=== PATIENT | male | born 1960 | race Caucasian/White ===

== ENCOUNTER 2017-03-07 16:01 | Emergency (ER) | payer MEDICARE, OTHER ==
[2017-03-07 16:08] VITALS: BP 134/73; PULSE 82; RESP 20; TEMP 97.1
[2017-03-07] MEDS ORDERED: DIPH,PERTUS(ACELL)TETVAC-LF 0.5 ML VIAL IM ONE (16:17)
--- NOTE | 2017-03-07 16:27 | ED ---
Wound/Laceration HPI - General Chief Complaint: Wound/Laceration Stated Complaint: Facial Laceration Time Seen by Provider: 03/07/17 16:09 Source: patient, family, RN notes reviewed Mode of arrival: ambulatory Limitations: no limitations - Related Data Home Medications Medication Instructions Recorded Confirmed Albuterol Inhaler [Ventolin Hfa 2 puff INHALATION DIRECTED PRN 05/27/1603/07 Inhaler] Aspirin [Adult Low Dose Aspirin EC] 81 mg PO DAILY 05/27/16 03/07/17 Atenolol [Tenormin] 25 mg PO DAILY 05/27/16 03/07/17 Simvastatin [Zocor] 40 mg PO HS 05/27/16 03/07/17 Ibuprofen [Motrin] 600 mg PO Q6HR PRN 05/28/16 03/07/17 Previous Rx's Medication Instructions Recorded Clopidogrel [Plavix] 75 mg PO DAILY #90 tab 06/19/16 Allergies Allergy/AdvReac Type Severity Reaction Status Date / Time Iodinated Contrast- Oral and Allergy Rash/Hives Verified 03/07/17 16:09 IV Dye [Iodinated Contrast Media - IV Dye] Review of Systems ROS Statement: Those systems with pertinent positive or pertinent negative responses have been documented in the HPI. ROS Other: All systems not noted in ROS Statement are negative. Past Medical History Past Medical History: COPD, CVA/TIA, GERD/Reflux, Hyperlipidemia, Hypertension, Myocardial Infarction (MS), Osteoarthritis (OA), Sleep Apnea/CPAP/BIPAP, Vascular Disorder Additional Past Medical History / Comment(s): PAD, DDD, LEFT SIDE OF MOUTH AND EYE MUSCLE DROOPING R/T CVA, BLOCKAGE BILAT LEGS, degenerative disc disease, RLS , BACK PAIN. Last Myocardial Infarction Date:: 2007 History of Any Multi-Drug Resistant Organisms: None Reported Past Surgical History: Heart Catheterization, Joint Replacement, Orthopedic Surgery Additional Past Surgical History / Comment(s): SPINAL CORD STIMULATOR, RT SHOULDER RECONSTRUCTION, RT HIP AND LEFT KNEE REPLACEMENT, AORTOGRAM WITH RUN OFF left leg 05/28/16, 06/18/16 STENT TO LT ILIAC ARTERY,07-14-16 2 STENTS TO RT ILIAC. Past Anesthesia/Blood Transfusion Reactions: Previous Problems w/ Anesthesia Additional Past Anesthesia/Blood Transfusion Reaction / Comment(s): STATES SLOW TO AWAKEN Past Psychological History: No Psychological Hx Reported Smoking Status: Current every day smoker Past Alcohol Use History: None Reported Past Drug Use History: None Reported - Past Family History Mother Family Medical History: Cancer Father Family Medical History: Hypertension General Exam - General Exam Comments Initial Comments: This is a well-developed, well-nourished 56-year-old male in no distress Limitations: no limitations General appearance: alert, in no apparent distress Head exam: Present: other (Patient is a superficial laceration to the bridge of his nose. This is a 1.5 cm in length. This is a flap-type laceration with questionable blood 4 to the flap. Patient has a tiny abrasion inferior to the laceration. There is no significant tenderness to palpation. No evidence of septal hematoma. Head is normocephalic/atraumatic otherwise) Eye exam: Present: normal appearance, PERRL, EOMI. Absent: scleral icterus, conjunctival injection, periorbital swelling ENT exam: Present: normal exam, normal oropharynx, mucous membranes moist, normal external ear exam Neck exam: Present: normal inspection, full ROM Respiratory exam: Absent: respiratory distress Cardiovascular Exam: Present: regular rate, normal rhythm, normal heart sounds. Absent: systolic murmur, diastolic murmur, rubs, gallop, clicks Extremities exam: Present: normal inspection, full ROM Neurological exam: Present: alert, oriented X3, CN II-XII intact, normal gait, other (No neurologic deficits, cerebellar testing is normal) Psychiatric exam: Present: normal affect, normal mood Skin exam: Present: warm, dry, normal color. Absent: intact, rash, cyanosis, diaphoretic Course Vital Signs 03/07/17 16:06 Temperature 97.1 F L Pulse Rate 82 Respiratory 20 Rate Blood Pressure 134/73 O2 Sat by Pulse 96 Oximetry Procedures - Laceration Laceration #1 Consent Obtained: verbal consent Indication: laceration Site: face Size (cm): 2 Description: flap Depth: simple, single layer Anesthetic Used: lidocaine 1% Anesthesia Technique: local infiltration Pre-repair: wound explored, irrigated extensively Type of Sutures: nylon Size of Sutures: 6-0 Number of Sutures: 3 Technique: simple, interrupted Patient Tolerated Procedure: well, no complications Medical Decision Making - Medical Decision Making Return to the ER at once if the symptoms worsen or problems or difficulties arise. Counseled signs and symptoms of infection wound care. Return and follow-up parameters discussed. No loss of consciousness, no vomiting and says, no neurological impairment Tetanus given - Differential Diagnosis Superficial facial laceration, no tenderness. Disposition Clinical Impression: Superficial laceration of face Disposition: HOME SELF-CARE Condition: Good Instructions: Facial Laceration (ED) Additional Instructions: Suture removal in 4 or 5 days. Keep the wound covered with topical antibiotic ointment such as Neosporin or triple about appointment. Return to the ER at once if the symptoms worsen or problems or difficulties arise. The patient was found to be hypertensive in the ER today. Findings were reviewed with the patient. Patient was advised to follow-up with the primary care physician for further evaluation of blood pressure. Referrals: David Benavides MD [Primary Care Provider] - 1-2 days Time of Disposition: 16:29
== END 2017-03-07 16:47 | disposition home or self-care (01) ==
LOC: EC 16:01
DX: S01.21XA Laceration without foreign body of nose, initial encounter (principal); I10 Essential (primary) hypertension; E78.5 Hyperlipidemia, unspecified; M19.90 Unspecified osteoarthritis, unspecified site; F17.200 Nicotine dependence, unspecified, uncomplicated; Z23 Encounter for immunization; Z91.041 Radiographic dye allergy status; Z79.82 Long term (current) use of aspirin; Z79.899 Other long term (current) drug therapy; X58.XXXA Exposure to other specified factors, initial encounter
CPT/HCPCS: 12011; 90471; 90715; 99282

== ENCOUNTER 2017-08-25 01:11 | Inpatient (IN) | payer MEDICARE, OTHER ==
[2017-08-25] MEDS ORDERED: ASPIRIN 81 MG PO STA (01:19)
[2017-08-25] MEDS ORDERED: NITROGLYCERIN SL TABS 0.4 MG TAB SUBLINGUAL PRN ×2 (01:19→03:18)
[2017-08-25] MEDS ORDERED: SUCCINYLCHOLINE CHLORIDE 100 MG/5 ML SYR IV STA (01:32)
[2017-08-25] MEDS ORDERED: MIDAZOLAM (PF) 1 MG/ML 5 ML VIAL IV STA (01:32)
[2017-08-25] MEDS ORDERED: LORazepam 2 MG/ML INJ IV STA (01:32)
[2017-08-25] MEDS ORDERED: ASPIRIN 300 MG SUPP RECTAL STA (01:33)
[2017-08-25 01:35] LABS: RDW 13.1 % (11.5-15.5)
[2017-08-25 01:36] LABS: Glucose,Whole Blood 187 mg/dL (75-99)
[2017-08-25] MEDS ORDERED: FAMOTIDINE 20 MG/2 ML VIAL IV STA (01:40)
[2017-08-25] MEDS ORDERED: diphenhydrAMINE 50 MG/ML 1 ML VIAL IVP STA (01:40)
[2017-08-25] MEDS ORDERED: methylPREDNISolone SOD SUCCI 125 MG/2 ML VIAL IV STA (01:40)
[2017-08-25 01:46] LABS: INR 1.1 (<1.2); Partial Thromboplastin Time 23.1 sec (22.0-30.0); Prothrombin Time 10.4 sec (9.0-12.0)
[2017-08-25 01:48] LABS: ALT 62 U/L (21-72); AST 56 U/L (17-59); Albumin 3.9 g/dL (3.5-5.0); Alkaline Phosphatase 67 U/L (38-126); Anion Gap 18 mmol/L; Blood Urea Nitrogen 15 mg/dL (9-20); Calcium 8.4 mg/dL (8.4-10.2); Carbon Dioxide 17 mmol/L (22-30); Chloride 107 mmol/L (98-107); Glucose 163 mg/dL (74-99); Potassium 3.7 mmol/L (3.5-5.1); Sodium 142 mmol/L (137-145); Total Bilirubin 0.4 mg/dL (0.2-1.3); Total Protein 6.1 g/dL (6.3-8.2)
[2017-08-25] MEDS ORDERED: MIDAZOLAM 2 MG/2 ML VIAL ONE ×2 (01:53→02:30)
[2017-08-25] MEDS ORDERED: fentaNYL (PF) 50 MCG/ML 2 ML AMP ONE ×2 (01:54→02:30)
[2017-08-25] MEDS ORDERED: LIDOCAINE 2% INJ 20 MG/ML (20 ML MDV) ONE (01:54)
[2017-08-25 01:57] LABS: HCT 51.6 % (39.0-53.0); HGB 17.4 gm/dL (13.0-17.5); MCH 31.9 pg (25.0-35.0); MCHC 33.7 g/dL (31.0-37.0); MCV 94.6 fL (80.0-100.0); Mean Platelet Volume 6.8; Platelet Count 172 k/uL (150-450); RBC 5.46 m/uL (4.30-5.90); WBC 14.4 k/uL (3.8-10.6)
--- NOTE | 2017-08-25 02:05 | CT ---
EXAMINATION TYPE: CT brain winston mukherjee con DATE OF EXAM: 08/25/2017 COMPARISON: NONE HISTORY: FOUND UNRESPONSIVE LOC CT DLP: 1820.50 mGycm Automated exposure control for dose reduction was used. TECHNIQUE: CT scan of the head and cervical spine are performed without contrast. FINDINGS: Ventricles of normal size. There is no mass effect nor midline shift. There is no sign of intracranial hemorrhage. There is mucosal thickening in the right frontal sinus. There is mucosal th ickening in the ethmoid sphenoid and maxillary sinuses. The calvarium is intact. There is mild deform ity of the nasal bone. Endotracheal tube is noted. The cervical vertebra have normal alignment. There is mild narrowing at C5-6 disc space with mild ant erior spurring. Posterior elements are intact. Skull base is intact. There is no evidence of a cervic al spine fracture. IMPRESSION: Pansinusitis. Possible nasal bone fracture. No acute intracranial abnormality. Mild spondylosis at C5-6. No fracture.
--- NOTE | 2017-08-25 02:06 | XR ---
EXAMINATION TYPE: XR chest 1V portable DATE OF EXAM: 08/25/2017 COMPARISON: 10/04/2013 HISTORY: Unresponsive TECHNIQUE: Single frontal view of the chest is obtained. FINDINGS: Endotracheal tube is noted. There is neurostimulator in the mid thoracic spine. There are chest leads. Lungs are clear of consolidation. There is no gross heart failure. There is mild increas ed lung markings compared to last exam. IMPRESSION: No gross heart failure. There is new mild pulmonary congestion compared to old exam.
--- NOTE | 2017-08-25 02:11 | ED ---
CPR HPI - General Chief Complaint: Cardiac Arrest/CPR Stated Complaint: Unresponsive Time Seen by Provider: 08/25/17 01:19 Source: family, EMS Mode of arrival: EMS Limitations: physical limitation - History of Present Illness Initial Comments: this patient is a 57-year-old man brought by EMS to be evaluated after being found unresponsive. The patient had reportedly gone to bed around 10. The patient's then heard a loud noise, that she initially thought was a door slamming. She went to check and found the patient lying face down on the floor half under the bed. She phoned EMS immediately. EMS was reportedly on scene 5 minutes later and found the patient appearing agonal. They placed him on the monitor and found what appeared to be V. fib and delivered a shock. They stated that the patient appeared to go into asystole and after CPR there was ROSC. the patient also began having spontaneous inspirations. EMS continued delivering 100% oxygen by BV, and transported the patient here. On arrival course patient not able to give any history. Patient's states that he has had history of VA, stroke with a little bit of left-sided arm residual weakness , carotid stenosis, and peripheral vascular disease. she also states that he had not been complaining of anything before going to bed. MD Complaint: found unresponsive, collapsed during rest -: minute(s) Place: home AED Applied by Bystander/[employer]: Yes Shock Advised: Yes Number of Shocks Delivered: 1 Initial Findings in the Field: unresponsive, agonal, VTACH/VFIB ROSC in the Field: Yes Associated Injuries: Yes (epistaxis) Treatments Prior to Arrival: BMV, chest compressions, defibrillated shocks # (1) - Related Data Home Medications Medication Instructions Recorded Confirmed Albuterol Inhaler [Ventolin Hfa 2 puff INHALATION DIRECTED PRN 05/27/1608/25 Inhaler] Atenolol [Tenormin] 25 mg PO DAILY 05/27/16 08/25/17 Simvastatin [Zocor] 40 mg PO HS 05/27/16 08/25/17 Isosorbide Mononitrate ER [Imdur] 60 mg PO DAILY 08/25/17 08/25/17 Nitroglycerin Sl Tabs [Nitrostat] 0.4 mg SUBLINGUAL Q5M PRN 08/25/17 08/25/17 Hydrochlorothiazide 12.5 mg PO DAILY 08/26/17 08/26/17 Nortriptyline [Pamelor] 25 mg PO DAILY 08/26/17 08/26/17 Previous Rx's Medication Instructions Recorded Clopidogrel [Plavix] 75 mg PO DAILY #90 tab 06/19/16 Allergies Allergy/AdvReac Type Severity Reaction Status Date / Time Iodinated Contrast- Oral and Allergy Rash/Hives Verified 08/25/17 12:21 IV Dye [Iodinated Contrast Media - IV Dye] Review of Systems ROS Statement: Those systems with pertinent positive or pertinent negative responses have been documented in the HPI. ROS Other: All systems not noted in ROS Statement are negative. Limitations: ROS unobtainable due to patients medical condition (patient unresponsive) Past Medical History Past Medical History: COPD, CVA/TIA, GERD/Reflux, Hyperlipidemia, Hypertension, Myocardial Infarction (VA), Osteoarthritis (OA), Sleep Apnea/CPAP/BIPAP, Vascular Disorder Additional Past Medical History / Comment(s): PAD, DDD, LEFT SIDE OF MOUTH AND EYE MUSCLE DROOPING R/T CVA, BLOCKAGE BILAT LEGS, degenerative disc disease, RLS , BACK PAIN. Last Myocardial Infarction Date:: 2007 History of Any Multi-Drug Resistant Organisms: None Reported Past Surgical History: Heart Catheterization, Joint Replacement, Orthopedic Surgery Additional Past Surgical History / Comment(s): SPINAL CORD STIMULATOR, RT SHOULDER RECONSTRUCTION, RT HIP AND LEFT KNEE REPLACEMENT, AORTOGRAM WITH RUN OFF left leg 05/28/16, 06/18/16 STENT TO LT ILIAC ARTERY,07-14-16 2 STENTS TO RT ILIAC. Past Anesthesia/Blood Transfusion Reactions: Previous Problems w/ Anesthesia Additional Past Anesthesia/Blood Transfusion Reaction / Comment(s): STATES SLOW TO AWAKEN Past Psychological History: No Psychological Hx Reported Smoking Status: Current every day smoker Past Alcohol Use History: None Reported Past Drug Use History: None Reported - Past Family History Mother Family Medical History: Cancer Father Family Medical History: Hypertension General Exam Limitations: physical limitation General appearance: obtunded Head exam: Present: normocephalic Eye exam: Present: PERRL. Absent: scleral icterus, conjunctival injection ENT exam: Present: TM's normal bilaterally, normal external ear exam, other ( there is dried blood in the naris, and small amount of dark blood and posterior pharynx) Neck exam: Present: normal inspection. Absent: tenderness Respiratory exam: Present: rhonchi. Absent: respiratory distress, wheezes, rales, stridor Cardiovascular Exam: Present: normal rhythm, tachycardia, normal heart sounds. Absent: systolic murmur, diastolic murmur, rubs, gallop GI/Abdominal exam: Present: soft. Absent: distended, tenderness, guarding, mass , pulsatile mass Extremities exam: Present: normal inspection, normal capillary refill. Absent: pedal edema, calf tenderness Back exam: Present: normal inspection. Absent: tenderness Neurological exam: Present: altered, CN II-XII intact, other (GCS is 8 (M=5, V=2 , E=1). patient not able to cooperate with neurologic exam.) Expanded Speech: Present: total aphasia Eye Response: (1) no response Motor Response: (5) localizes to pain Verbal Response: incomprehensible sounds Skin exam: Present: warm, dry, intact, normal color. Absent: rash Course Vital Signs 08/25/17 08/25/17 01:20 01:41 Temperature 96.6 F L Pulse Rate 111 H 122 H Respiratory 20 20 Rate Blood Pressure 140/83 141/87 O2 Sat by Pulse 98 94 L Oximetry Procedures - Intubation Time Out Performed: Yes Sedative: Versed Mg Given: 5 Paralytic: Succinylcholine Mg Given: 100 Laryngoscope: Jennifer Size: 3 ET Tube Size: 8 ET Tube Uncuffed: No Tube Placement Confirmation: visualized tube passing through cords, equal breath sounds bilaterally, no breath sounds over epigastrium, confirmation by capnometry Patient Tolerated Procedure: no complications Intubation Complications: none Additional Comments: intubated for airway protection given that GCS is 8. Medical Decision Making - Medical Decision Making patient's 57-year-old man wrought after being found unresponsive. His initial ECG appears to show ST elevation VA with inferior ST elevations, reciprocal changes in the lateral and anterior leads. Given that the patient has neurologic responses, the STEMI alert is activated. I discussed the case with Dr. Novak, who is coming to see the patient. Patient also for computed tomography scan of the brain and C-spine and cervical collar is placed. Patient is intubated for airway protection using in-line spinal immobilization. - Lab Data Result diagrams: 08/30/17 05:54 08/30/17 05:54 Lab Results 0108/25/17 08/25/17 Range/Units 01:18 01:18 01:18 WBC 14.4 H (3.8-10.6) k/uL RBC 5.46 (4.30-5.90) m/uL Hgb 17.4 (13.0-17.5) gm/dL Hct 51.6 (39.0-53.0) % MCV 94.6 (80.0-100.0) fL MCH 31.9 (25.0-35.0) pg MCHC 33.7 (31.0-37.0) g/dL RDW 13.1 (11.5-15.5) % Plt Count 172 (150-450) k/uL Neutrophils % (Manual) 51 % Lymphocytes % (Manual) 36 % Monocytes % (Manual) 11 % Eosinophils % (Manual) 2 % Neutrophils # (Manual) 7.34 (1.3-7.7) k/uL Lymphocytes # (Manual) 5.18 H (1.0-4.8) k/uL Monocytes # (Manual) 1.58 H (0-1.0) k/uL Eosinophils # (Manual) 0.29 (0-0.7) k/uL Nucleated RBCs 0 (0-0) /100 WBC Manual Slide Review Performed PT (9.0-12.0) sec INR (<1.2) APTT (22.0-30.0) sec Sodium 142 (137-145) mmol/L Potassium 3.7 (3.5-5.1) mmol/L Chloride 107 (98-107) mmol/L Carbon Dioxide 17 L (22-30) mmol/L Anion Gap 18 mmol/L BUN 15 (9-20) mg/dL Creatinine 1.20 (0.66-1.25) mg/dL Est GFR (MDRD) Af Amer >60 (>60 ml/min/1.73 sqM) Est GFR (MDRD) Non-Af >60 (>60 ml/min/1.73 sqM) Glucose 163 H (74-99) mg/dL POC Glucose (mg/dL) (75-99) mg/dL POC Glu Procurement Internship ID Calcium 8.4 (8.4-10.2) mg/dL Total Bilirubin 0.4 (0.2-1.3) mg/dL AST 56 (17-59) U/L ALT 62 (21-72) U/L Alkaline Phosphatase 67 (38-126) U/L CK-MB (CK-2) 2.5 H* (0.0-2.4) ng/mL Troponin I 0.034 (0.000-0.034) ng/mL Total Protein 6.1 L (6.3-8.2) g/dL Albumin 3.9 (3.5-5.0) g/dL 08/25/17 08/25/17 Range/Units 01:18 01:24 WBC (3.8-10.6) k/uL RBC (4.30-5.90) m/uL Hgb (13.0-17.5) gm/dL Hct (39.0-53.0) % MCV (80.0-100.0) fL MCH (25.0-35.0) pg MCHC (31.0-37.0) g/dL RDW (11.5-15.5) % Plt Count (150-450) k/uL Neutrophils % (Manual) % Lymphocytes % (Manual) % Monocytes % (Manual) % Eosinophils % (Manual) % Neutrophils # (Manual) (1.3-7.7) k/uL Lymphocytes # (Manual) (1.0-4.8) k/uL Monocytes # (Manual) (0-1.0) k/uL Eosinophils # (Manual) (0-0.7) k/uL Nucleated RBCs (0-0) /100 WBC Manual Slide Review PT 10.4 (9.0-12.0) sec INR 1.1 (<1.2) APTT 23.1 (22.0-30.0) sec Sodium (137-145) mmol/L Potassium (3.5-5.1) mmol/L Chloride (98-107) mmol/L Carbon Dioxide (22-30) mmol/L Anion Gap mmol/L BUN (9-20) mg/dL Creatinine (0.66-1.25) mg/dL Est GFR (MDRD) Af Amer (>60 ml/min/1.73 sqM) Est GFR (MDRD) Non-Af (>60 ml/min/1.73 sqM) Glucose (74-99) mg/dL POC Glucose (mg/dL) 187 H (75-99) mg/dL POC Glu Procurement Internship ID Tiff Nunez Calcium (8.4-10.2) mg/dL Total Bilirubin (0.2-1.3) mg/dL AST (17-59) U/L ALT (21-72) U/L Alkaline Phosphatase (38-126) U/L CK-MB (CK-2) (0.0-2.4) ng/mL Troponin I (0.000-0.034) ng/mL Total Protein (6.3-8.2) g/dL Albumin (3.5-5.0) g/dL Critical Care Time Critical Care Time: Yes (40 minutes) Disposition Clinical Impression: Acute myocardial infarction, Cardiopulmonary arrest with successful resuscitation Disposition: ADMITTED IP TO THIS [facility] Condition: Critical
[2017-08-25 02:15] LABS: Eosinophils # (M) 0.29 k/uL (0-0.7); Lymphocytes # (M) 5.18 k/uL (1.0-4.8); Monocytes # (M) 1.58 k/uL (0-1.0); Neutrophils # (M) 7.34 k/uL (1.3-7.7); Neutrophils % (M) 51 %; Nucleated Red Blood Cells 0 /100 WBC (0-0); Total Cells Counted 100; Troponin I 0.034 ng/mL (0.000-0.034)
[2017-08-25] MEDS ORDERED: MIDAZOLAM 2 MG/2 ML VIAL IV ONE ×2 (02:17)
[2017-08-25] MEDS ORDERED: LIDOCAINE 2% INJ 20 MG/ML SQ ONE ×3 (02:18→02:25)
[2017-08-25] MEDS ORDERED: IV FLUID CONTINUATION 1,000 ML IV ONE (02:21)
[2017-08-25] MEDS ORDERED: VERAPAMIL 2.5 MG/ML 2 ML AMP ONE (02:21)
[2017-08-25] MEDS ORDERED: SUCCINYLCHOLINE CHLORIDE VIAL 200 MG/10 ML VIAL IV STA (02:26)
[2017-08-25 02:27] LABS: Creatine Kinase MB 2.5 ng/mL (0.0-2.4)
[2017-08-25] MEDS ORDERED: ROCURONIUM BROMIDE 10 MG/ML 10 ML VIAL IV ONE (02:30)
[2017-08-25] MEDS ORDERED: BIVALIRUDIN 250 MG in SODIUM CHLORIDE 0.9% 50 ML IV ONE ×4 (02:34)
[2017-08-25] MEDS ORDERED: BIVALIRUDIN BOLUS 250 MG/50 ML IV ONE ×2 (02:34)
[2017-08-25] MEDS ORDERED: CLOPIDOGREL 75 MG TAB ONE ×2 (02:36→02:37)
[2017-08-25] MEDS ORDERED: CLOPIDOGREL 75 MG TAB PO ONE ×2 (02:46)
[2017-08-25] MEDS ORDERED: IOHEXOL 350 MG/ML 125ML BOTTLE INJ ONE ×2 (03:18)
[2017-08-25] MEDS ORDERED: ATROPINE SULFATE 0.1 MG/ML 10ML SYRINGE IV PRN (03:18)
[2017-08-25] MEDS ORDERED: ZOLPIDEM 5 MG TAB PO PRN (03:18)
[2017-08-25] MEDS ORDERED: RX INFO: IV CONTRAST WAS GIVEN 1 EACH MISC MISCELLANE PRN (03:18)
[2017-08-25] MEDS ORDERED: MAG HYDROX/AL HYDROX/SIMETH 30 ML CUP PO PRN (03:18)
[2017-08-25] MEDS ORDERED: PROPOFOL 100 ML IV ONE (03:42)
[2017-08-25 03:46] LABS: Glucose,Whole Blood 106 mg/dL (75-99)
[2017-08-25 04:10] LABS: ABG PCO2 45 mmHg (35-45); ABG PH 7.34 (7.35-7.45)
[2017-08-25 04:11] LABS: ABG HCO3 24 mmol/L (21-25); ABG PO2 246 mmHg (83-108); ABG TCO2 57 mmol/L (19-24)
[2017-08-25 04:12] LABS: ABG Base Excess -1.5 mmol/L
[2017-08-25] MEDS: SODIUM CHLORIDE 0.9% 1,000 ML IV SCH ×2 (04:24→18:04)
--- NOTE | 2017-08-25 08:16 | XR ---
EXAMINATION TYPE: XR chest 1V portable DATE OF EXAM: 08/25/2017 COMPARISON: NONE HISTORY: SOB, Follow Up FINDINGS: Endotracheal tube is unchanged in position. NG tube is seen coursing into the stomach. Perihilar and upper lobe infiltrates have increased. Underlying pulmonary venous congestion. Stable appearance of the cardio-mediastinal structures at this time. Pleural effusion unchanged. IMPRESSION: 1. Perihilar and upper lobe infiltrates have increased. Underlying pulmonary venous congestion. Clinical correlation and follow up until resolution is recommended.
[2017-08-25] MEDS: PROPOFOL 1,000 MG in EMPTY BAG 1 BAG IV SCH ×2 (08:35→20:29)
--- NOTE | 2017-08-25 09:44 | P.CNPUL ---
History of Present Illness Consult date: 08/25/17 Chief complaint: STEMI History of present illness: A 57-year-old male patient who came in to the hospital with an acute cardiac arrest. The patient was found to be unresponsive by his . Apparently the patient had gone to bed around 10 PM. The heard and no complications and upon check in on her , she found him laying face down on the floor. EMS was called to the scene and the patient was initially found to be in ventricular fibrillation and he was immediately shocked and defibrillated and the patient had return of spontaneous circulation. The patient also began having spontaneous breathing. EMS put him on 100% nonrebreather and the patient got moved to the emergency department. The exact downtime is not clear although this is estimated to be around 5 minutes at least. The patient came in to the emergency department and the patient was found to have acute ST segment elevation myocardial infarction involving the inferior leads with reciprocal changes laterally. Acute myocardial infarction was suspected. The patient was immediately taken to the Planner Chief and the patient underwent a cardiac catheterization he was found to have 100% occlusion of the RCA and the patient underwent angioplasty and stenting of the RCA. Following that, the patient was moved to the intensive care unit intubated on a mechanical ventilator. This morning, the patient is on 10 mics of the Diprivan and is calm and comfortable. He is hemodynamically stable on no pressors. He is producing adequate amount of urine output. Overnight he was placed on IV fluids with normal saline at the rate of 75 mL an hour. His chest x-ray from today shows perihilar and upper lobe infiltrates that have increased compared to yesterday and I suspect this is related to pulmonary vessel congestion. I also suspect that the patient could've aspirated knowing that the pulmonary infiltration on the right especially in the right upper lung area is worse compared to the left. The patient also having some respiratory secretions being suctioned from the orotracheal tube that are rather thick and purulent. ET tube is in a good location. NG tube is also in the stomach. Echocardiogram was done this morning and the results are still pending for now. Meanwhile, the patient's troponins were minimally elevated at 0.03 initially and subsequently up to 0.5. The patient's creatinine today is at 1.2. His blood gases from this morning showed a pH of 7.35 with a pCO2 of 45 and pO2 of 246 and this was done on assist control mode at the rate of 14, tidal volume 550, FiO2 of 100% and a PEEP of 5. Based on his blood gases, the patient's FiO2 was dropped down to 50% . The patient is known to have coronary artery disease and the patient has been involved in a myocardial infarction back in 2007. The patient also has had previous CVA and left-sided weakness and previous history of carotid artery stenosis. He is also known to have peripheral vascular disease with iliac stents. Review of Systems ROS unobtainable: due to endotracheal tube Past Medical History Past Medical History: COPD, CVA/TIA, GERD/Reflux, Hyperlipidemia, Hypertension, Myocardial Infarction ([place]), Osteoarthritis (OA), Sleep Apnea/CPAP/BIPAP, Vascular Disorder Additional Past Medical History / Comment(s): Coronary artery disease, previous myocardial infarctions 2007 , peripheral vascular disease, CVA with some residual left-sided weakness, COPD, acid reflux, hyperlipidemia, hypertension, obstructive sleep apnea, osteoarthritis, chronic back pain, restless leg syndrome Last Myocardial Infarction Date:: 2007 History of Any Multi-Drug Resistant Organisms: None Reported Past Surgical History: Heart Catheterization, Joint Replacement, Orthopedic Surgery Additional Past Surgical History / Comment(s): SPINAL CORD STIMULATOR, RT SHOULDER RECONSTRUCTION, RT HIP AND LEFT KNEE REPLACEMENT, AORTOGRAM WITH RUN OFF left leg 05/28/16, 06/18/16 STENT TO LT ILIAC ARTERY,07-14-16 2 STENTS TO RT ILIAC. Past Anesthesia/Blood Transfusion Reactions: Previous Problems w/ Anesthesia Additional Past Anesthesia/Blood Transfusion Reaction / Comment(s): STATES SLOW TO AWAKEN Past Psychological History: No Psychological Hx Reported Smoking Status: Current every day smoker Past Alcohol Use History: None Reported Additional Past Alcohol Use History / Comment(s): SMOKES 1 PPD, started smoking 1971 Past Drug Use History: None Reported Additional Drug Use History / Comment(s): USES MEDICAL MARIJUANA DAILY - Past Family History Mother Family Medical History: Cancer Father Family Medical History: Hypertension Medications and Allergies Home Medications Medication Instructions Recorded Confirmed Type Albuterol Inhaler [Ventolin Hfa 2 puff INHALATION DIRECTED PRN 05/27/1603/07 History Inhaler] Aspirin [Adult Low Dose Aspirin EC] 81 mg PO DAILY 05/27/16 03/07/17 History Atenolol [Tenormin] 25 mg PO DAILY 05/27/16 03/07/17 History Simvastatin [Zocor] 40 mg PO HS 05/27/16 03/07/17 History Ibuprofen [Motrin] 600 mg PO Q6HR PRN 05/28/16 03/07/17 History Clopidogrel [Plavix] 75 mg PO DAILY #90 tab 06/19/16 03/07/17 Rx Allergies Allergy/AdvReac Type Severity Reaction Status Date / Time Iodinated Contrast- Oral and Allergy Rash/Hives Verified 03/07/17 16:09 IV Dye [Iodinated Contrast Media - IV Dye] Physical Exam Vitals: Vital Signs Temp Pulse Resp BP Pulse Ox 08/25/17 08:50 85 22 145/75 97 08/25/17 08:48 86 21 145/75 98 08/25/17 08:46 87 21 145/75 97 08/25/17 08:44 95 22 145/75 98 08/25/17 08:42 86 21 145/75 97 08/25/17 08:40 93 21 145/75 99 08/25/17 08:38 90 23 145/75 100 08/25/17 08:36 100 13 136/93 99 08/25/17 08:34 97 20 117/71 99 08/25/17 08:32 85 23 133/78 98 08/25/17 08:30 98.9 F 90 23 138/73 97 08/25/17 08:28 89 22 136/82 97 08/25/17 08:26 87 16 130/85 97 08/25/17 08:24 86 21 126/83 97 08/25/17 08:22 89 21 131/77 97 08/25/17 08:20 90 22 136/70 97 08/25/17 08:18 83 22 127/84 97 08/25/17 08:16 87 17 132/77 97 08/25/17 08:14 89 21 131/84 97 08/25/17 08:12 88 52 H 131/74 97 08/25/17 08:10 90 26 H 129/84 97 08/25/17 08:08 93 20 141/85 97 08/25/17 08:06 92 26 H 143/77 97 08/25/17 08:04 92 29 H 97 08/25/17 08:02 87 19 97 08/25/17 08:00 85 21 97 08/25/17 07:58 89 12 97 08/25/17 07:56 89 18 97 08/25/17 07:54 89 22 97 08/25/17 07:52 88 21 97 08/25/17 07:50 89 21 97 08/25/17 07:48 88 21 97 08/25/17 07:46 93 22 97 08/25/17 07:44 93 20 97 08/25/17 07:42 88 22 97 08/25/17 07:40 88 22 97 08/25/17 07:38 87 21 97 08/25/17 07:36 88 17 97 08/25/17 07:34 91 23 97 08/25/17 07:32 87 18 97 08/25/17 07:30 87 22 97 08/25/17 07:28 87 22 97 08/25/17 07:26 89 11 L 97 08/25/17 07:24 88 21 97 08/25/17 07:22 90 22 97 08/25/17 07:20 87 17 97 08/25/17 07:18 87 17 97 08/25/17 07:16 88 13 97 08/25/17 07:14 90 21 97 08/25/17 07:12 92 16 97 08/25/17 07:00 86 14 97 08/25/17 06:45 88 14 98 08/25/17 06:30 85 14 98 08/25/17 06:15 93 27 H 99 08/25/17 06:00 89 24 99 08/25/17 05:45 90 17 99 08/25/17 05:30 98 26 H 99 08/25/17 05:15 96 19 99 08/25/17 05:00 100 25 H 100 08/25/17 04:45 100 17 99 08/25/17 04:30 103 H 27 H 124/77 100 08/25/17 04:15 104 H 18 135/72 100 08/25/17 04:00 97.2 F L 108 H 14 141/79 100 08/25/17 03:45 117 H 28 H 143/85 100 08/25/17 01:41 122 H 20 141/87 94 L 08/25/17 01:20 96.6 F L 111 H 20 140/83 98 Intake and Output 08/24/17 08/25/17 08/25/17 22:59 06:59 14:59 Intake Total 1062.81 150 Output Total 1874 175 Balance -812.19 -25 Intake: IV 1062.81 150 Sodium Chloride 0.9% 1, 225 150 000 ml @ 75 mls/hr IV . [id number] [facility] Rx#:[id number] Output: Urine 1874 175 Uretheral (Llanos) 200 Other: Voiding Method Indwelling Catheter Weight 91.1 kg ABP, PAP, CO, CI - Last 8 Hours Arterial Blood Pressure 153/86 Arterial Blood Pressure 153/86 Arterial Blood Pressure 145/80 Arterial Blood Pressure 143/78 Arterial Blood Pressure 145/80 Arterial Blood Pressure 144/79 Arterial Blood Pressure 144/79 Arterial Blood Pressure 150/83 Arterial Blood Pressure 149/83 Arterial Blood Pressure 148/82 Arterial Blood Pressure 143/80 Arterial Blood Pressure 141/79 Arterial Blood Pressure 137/75 Arterial Blood Pressure 142/79 Arterial Blood Pressure 142/79 Arterial Blood Pressure 138/76 Arterial Blood Pressure 140/78 Arterial Blood Pressure 138/76 Arterial Blood Pressure 141/77 Arterial Blood Pressure 138/77 Arterial Blood Pressure 136/76 Arterial Blood Pressure 140/78 Arterial Blood Pressure 141/80 Arterial Blood Pressure 139/78 Arterial Blood Pressure 141/78 Arterial Blood Pressure 139/77 Arterial Blood Pressure 144/80 Arterial Blood Pressure 133/75 Arterial Blood Pressure 128/72 Arterial Blood Pressure 126/73 Arterial Blood Pressure 151/93 Arterial Blood Pressure 123/73 Arterial Blood Pressure 134/81 Arterial Blood Pressure 145/87 Arterial Blood Pressure 122/71 Arterial Blood Pressure 127/75 Arterial Blood Pressure 130/78 Arterial Blood Pressure 136/81 Arterial Blood Pressure 137/85 She is intubated on a mechanical ventilator. The patient has bruising over the right face probably related to the fall and the trauma to his face. He is still awaiting a neck collar yet the CAT scan of the cervical spine showed no evidence of an acute fracture and the neck collar can be discontinued. Orogastric and orotracheal tube are both in place.Head exam was generally normal. There was no scleral icterus or corneal arcus. Mucous membranes were moist.Neck was supple and without jugular venous distension, thyromegaly, or carotid bruits. Carotids were easily palpable bilaterally. There was no adenopathy.Lungs were clear to auscultation and percussion, and with normal diaphragmatic excursion. No wheezes or rales were noted. Cardiac exam revealed the PMI to be normally situated and sized. The rhythm was regular and no extrasystoles were noted during several minutes of auscultation. The first and second heart sounds were normal and physiologic splitting of the second heart sound was noted. There were no murmurs, rubs, clicks, or gallops.Abdominal exam revealed normal bowel sounds. The abdomen was soft, non-tender, and without masses, organomegaly, or appreciable enlargement of the abdominal aorta.Examination of the extremities revealed easily palpable radial, femoral and pedal pulses. There was no cyanosis, clubbing or edema. Neurologically the patient is withdrawing to painful stimuli. The patient be taken off sedation the patient will be given a sedation holiday and subsequent neurologic evaluation will be done. Skin shows an area of bruising over the right face related to trauma and the sheath from the left groin has been pulled and there is no evidence of any hematoma. Results - Laboratory Findings CBC and BMP: 08/25/17 01:18 08/25/17 01:18 ABG ABG pH 7.34 (7.35-7.45) L 08/25/17 04:02 ABG pCO2 45 mmHg (35-45) 08/25/17 04:02 ABG pO2 246 mmHg (83-108) H 08/25/17 04:02 ABG O2 Saturation 100.0 % (94-97) H 08/25/17 04:02 PT/INR, D-dimer PT 10.4 sec (9.0-12.0) 08/25/17 01:18 INR 1.1 (<1.2) 08/25/17 01:18 Abnormal lab findings: Abnormal Labs 08/25/17 08/25/17 08/25/17 01:18 01:18 01:18 WBC 14.4 H Lymphocytes # (Manual) 5.18 H Monocytes # (Manual) 1.58 H ABG pH ABG pO2 ABG Total CO2 ABG O2 Saturation Carbon Dioxide 17 L Glucose 163 H POC Glucose (mg/dL) CK-MB (CK-2) 2.5 H* Troponin I Total Protein 6.1 L 08/25/17 08/25/17 08/25/17 01:24 03:44 03:50 WBC Lymphocytes # (Manual) Monocytes # (Manual) ABG pH ABG pO2 ABG Total CO2 ABG O2 Saturation Carbon Dioxide Glucose POC Glucose (mg/dL) 187 H 106 H CK-MB (CK-2) Troponin I 0.559 H* Total Protein 08/25/17 04:02 WBC Lymphocytes # (Manual) Monocytes # (Manual) ABG pH 7.34 L ABG pO2 246 H ABG Total CO2 57 H ABG O2 Saturation 100.0 H Carbon Dioxide Glucose POC Glucose (mg/dL) CK-MB (CK-2) Troponin I Total Protein - Diagnostic Findings Chest x-ray: image reviewed Assessment and Plan Plan: Assessment 1 acute cardiac arrest/ventricle fibrillation, status post successful defibrillation and resuscitation with a downtime estimated to be around 5-[address] segment elevation inferior wall myocardial infarction, status post emergent cardiac catheterization and stenting of RCA 2 stents. 3 acute respiratory failure secondary to above, currently intubated on mechanical ventilator 4 suspected right upper lobe pneumonia, rule out aspiration 5 COPD 6 known history of coronary artery disease with previous [place] in 2007 7 history of CVA with some residual left-sided weakness 8 carotid artery disease 9 peripheral vascular disease with history of iliac stents 10 hyperlipidemia 11 hypertension 12 obstructive sleep apnea 13 chronic back pain 14 degenerative arthritis 15 possible nasal bone fracture and pansinusitis and the patient was started on IV Zosyn. No evidence of any cervical spine fracture and there is mild spondylosis at the level of C5-C6 Plan Continue vent support. The necessary vent changes will be done. My suggestion is to drop the FiO2 to maintain a saturation above 90%. The patient has some mild degree of metabolic and respiratory acidosis which will hopefully just itself. Keep the tidal volume of 550 with a respiratory rate of 14. Continue IV fluids. Continue aspirin and Plavix. Continue beta blockers with metoprolol 25 mg by mouth twice a day. Awaiting results of the echocardiogram. We'll give the patient sedation holiday and we'll assess his underlying neurologic function and status. There is a concern that he may have an underlying hypoxic encephalopathy related to his cardiac arrest. As such a sedation holiday will be given and the patient will be readdressed. Meanwhile, obtain a sputum Gram stain and culture. Cover this patient with IV Zosyn regarding possibility of an aspiration pneumonia. Obtain lipid profile. Restart antilipids treatment with high-dose statins and the patient is currently on Lipitor 80 mg by mouth daily. Condition is still critical. We'll continue to follow make further recommendations based on the progress. I'm going to remove the neck collar. CAT scan of the head did not show any acute abnormalities Time with Patient: Greater than 30
--- NOTE | 2017-08-25 09:46 | CONS ---
CONSULTATION Mr. Pierre is a 57-year-old male who presented to the emergency room after found unresponsive at home by his . Apparently, she heard a thud. EMS was called. The patient was in ventricular fibrillation. Had a cardioversion and subsequently intubated. In the emergency room, he did not require any further CPR or pressor support. His EKG showed evidence to suggest inferior wall myocardial infarction. I am not able to obtain any other history. The is not available at the time of my examination. Reviewing the records, patient has history of peripheral vascular disease, has underwent percutaneous revascularization of his lower extremities by Dr. Metzger in June and July 2016. He has underwent cardiac catheterization in 2006 and was found to have an left circumflex origin from the right coronary cusp with mild to moderate triple-vessel disease. At that time, his left ventricular systolic function was preserved. I do not have any further history for review of systems. PHYSICAL EXAMINATION: He is a 57-year-old male, intubated, non-responsive. Heart rate in the one teens. Blood pressure 110/70. HEAD: Normocephalic. Eyes sclerae nonicteric, pupils fixed and nonreactive. NECK: Neck collar in place. LUNGS: Clear anteriorly with decreased air exchange. HEART: Regular rate and rhythm, S1, S2. No S3. No rub appreciated. ABDOMEN: Soft. Positive bowel sounds. No organomegaly. EXTREMITIES: No edema. Decreased distal pulses. EKG revealed a sinus mechanism with ST-segment elevation inferiorly with ST depression in the anterior precordial leads. IMPRESSION: 1. Ventricular fibrillation arrest with evidence to suggest inferior myocardial infarction. 2. Peripheral vascular disease, status post percutaneous revascularization. RECOMMENDATION: I have recommend proceeding with coronary angiography to further assess the status and guide his treatment. The family will be informed by the nursing staff when he returns to the hospital. Thank you for this consult. Will follow with you. MMODL / IJN: [id number] /
--- NOTE | 2017-08-25 09:58 | CC ---
CARDIAC CATHETERIZATION REPORT Mr. Pierre is a 57-year-old male with known history of severe peripheral vascular disease, history of coronary artery disease, hypertension, hyperlipidemia, who presented with a cardiac arrest with ventricular fibrillation requiring cardioversion by EMS. He. His EKG showed evidence to suggest inferior wall myocardial infarction. In view of that, cardiac catheterization was recommended. PROCEDURE: Patient was brought to the [facility], intubated, sedated. Attempts to cannulate the right radial artery were unsuccessful. Subsequently, using Xylocaine anesthesia and Seldinger technique, a 6-Congolese sheath was introduced in the left femoral artery. Selective left groin angiography performed 6-Congolese 4 bend left Judkin's catheter and subsequently a 6-Congolese FR4 guiding catheter introduced into the system and images of the right coronary system were obtained. Angioplasty and stenting of the right coronary artery was performed. Following this, a 6-Congolese tight pigtail catheter was introduced into the left ventricle and a 30 degree LANTIGUA view of the left ventricle was obtained. Following that, the catheter were removed. Sheath was sutured in place. The patient was returned to his room in stable condition. FINDINGS: 1. LEFT MAIN: This is a large-sized vessel giving rise to LAD. The left anterior descending artery proximally gives rise to a large diagonal branch. The diagonal branch has a area of stenosis of 60% to 70%. The LAD has mild intimal disease of 20% to 30%. The rest of the vessel has no high-grade stenosis. 2. RIGHT CORONARY ARTERY: This vessel is totally occluded in the proximal segment with no significant antegrade flow. 3. LEFT CIRCUMFLEX: This is an ectopic vessel originating from the right coronary cusp and totally occluded proximally. 4. COLLATERALS: There is good collateral from the left coronary system toward the distal right PDA and PLV. 5. LEFT VENTRICULOGRAM: Left ventriculogram is performed in the 30 degree LANTIGUA view and revealed akinesis of the inferior wall with ejection fraction of 30%. There was no significant mitral regurgitation. 6. HEMODYNAMICS: There was no gradient across the aortic valve. The left ventricular end-diastolic pressure was 24 mmHg. CONCLUSION: 1. Totally occluded right coronary artery. 2. Totally occluded left circumflex. 3. Mild to moderate disease in the left anterior descending artery. 4. Collaterals from the left coronary system toward the right coronary system. 5. Severely impaired left ventricular systolic function. RECOMMENDATION: In view of finding anatomy, recommendation made regarding angioplasty and stenting. MMODL / IJN: [id number] /
[2017-08-25] MEDS ORDERED: DEXTROSE 5% IN WATER 100 ML with AMIODARONE 150 MG IV ONE (10:00)
--- NOTE | 2017-08-25 10:07 | PTCA ---
PERCUTANEOUSTRANS CORORONARY ANGIOGRAPHY ANGIOPLASTY PROCEDURE NOTE Mr. Pierre is a 57-year-old male with known history of peripheral vascular disease, coronary artery disease who presented with a sudden cardiac arrest and ventricular fibrillation. He was intubated, unresponsive, brought into the cardiac catheterization laboratory, underwent cardiac catheterization, was found to have a totally occluded right coronary artery and ectopic left circumflex. Recommendation was made regarding angioplasty and stenting. Using the 6-Lebanese FR4 guiding catheter, attempts to cross the total occlusion using a 0.014 run-through wire, BMW J wire, were unsuccessful. Subsequently 0.014 whisper J- wire was advanced across the total occlusion, positioned distally. Following that, a 2.25 x 12 mm Trek balloon was advanced and multiple inflations, maximum 10 atmospheres were done. Following that, the balloon was removed and a 2.5 x 28 mm Xience Alpine stent was deployed, postdilated 14 atmospheres. Following that. The balloon was removed and a 2.75 x 12 mm Xience Alpine stent was deployed proximal to the first one and postdilated 16 atmospheres. After the last inflation, after appropriate wait, the balloon and the guidewire were withdrawn back in the guiding catheter. Images were obtained, repeated. Those images reveal stable successful stenting. At that point, the guiding catheter, the balloon and the guidewire were removed and a left ventriculogram was performed. Following that, the catheter was removed. Sheath was sutured in place. The patient was returned to his room in stable condition. Of note, that he received sedation during the procedure by the anesthesia department. He received Angiomax per protocol as well as oral loading dose of clopidogrel. RESULTS: Successful stenting of a totally occluded mid right coronary artery in a long segment with reduction of stenosis from 100% to 0%. RECOMMENDATION: Patient will be continued on aspirin, Plavix, beta jolene, GHAZALA inhibitors, statin. Unfortunately, the prognosis remains quite guarded depending on his neurological status. Those findings and recommendation were discussed with the family and are in full understanding and agreement. Duration of procedure is 50 minutes. MMVINCENT / FLEXN: [id number] /
[2017-08-25] MEDS: CHLORHEXIDINE GLUCONATE 15 ML CUP MUCOUS MEM SCH ×2 (10:11→20:29)
[2017-08-25] MEDS: METOPROLOL TARTRATE 25 MG TAB PO SCH ×2 (10:11→20:28)
[2017-08-25] MEDS: SPIRONOLACTONE 25 MG TAB PO SCH (10:12)
--- NOTE | 2017-08-25 10:13 | LTR ---
August 25, 2017 Re: Ralph Pierre Dear Dr. Benavides: I had the opportunity to perform cardiac catheterization and coronary angioplasty and stenting on Mr. Pierre at [facility] on 25 of August and a full copy of the procedure note will be forwarded to you. In brief, he presented with an acute sudden and ventricular fibrillation. His cardiac catheterization reveals a totally occluded right coronary artery and left circumflex. He underwent successful stenting of his right coronary artery. I am hopeful that this procedure will stabilize his status. Unfortunately, prognosis remains guarded in view of his primary event and severe cardiomyopathy. Depending on his progress, further recommendation will be made. Sincerely yours, MD LINDA ArreagaL / FLEXN: [id number] /
[2017-08-25] MEDS: AMIODARONE 450 MG in DEXTROSE 5% IN WATER 250 ML IV SCH ×4 (10:15→18:27)
[2017-08-25] MEDS: HEPARIN SODIUM,PORCINE 5,000 UNIT/ML 1 ML VIAL SQ SCH ×3 (10:15→22:41)
[2017-08-25] MEDS: PIPERACILLIN-TAZOBACTAM 3.375 GM in DEXTROSE/WATER 1 50ML.BAG IVPB SCH ×3 (10:15→22:42)
[2017-08-25 11:13] LABS: Cholesterol 179 mg/dL (<200); HDL Cholesterol 42 mg/dL (40-60); LDL Cholesterol,Calculated 117 mg/dL (0-99); Triglycerides 98 mg/dL (<150)
[2017-08-25] MEDS: IPRATROPIUM-ALBUTEROL 3 ML NEB INHALATION SCH ×3 (11:21→19:48)
--- NOTE | 2017-08-25 11:37 | PN ---
PROGRESS NOTE This patient's medical records reviewed. The patient's condition discussed with the and also Dr. Cuevas. Patient came with a cardiac arrest. The patient was found to have total occlusion of the right coronary and circumflex coronary artery. Both probably old. The patient underwent a stent to the RCA. The patient is currently intubated but he is under sedation. He is waking up slowly. The patient's vital signs are stable. Patient has a past history of myocardial infarction, stroke and peripheral vascular disease. Heart rate is 85 per minute, blood pressure is 145/75 mmHg. First and second heart sounds are normal. The lungs are clinically clear to auscultation and percussion. Extremities peripheral pulsations are not felt. Initial EKG showed evidence of inferior wall RI with some mild ST elevation in the inferior leads as well as ST-segment depression. The patient's initial troponin was 0.034 and the second troponin is 0.559. FINAL IMPRESSION: This patient is status post cardiac arrest. It appears that the patient's ventricular tachycardia and VFib are primarily secondary to underlying ischemic cardiomyopathy. At present, there is no suggestion of any significant acute myocardial infarction. RECOMMENDATIONS: In view of the possibly ventricular tachycardia and fibrillation secondary to ischemic cardiomyopathy, we will load the patient with amiodarone. Continue beta jolene. Once the patient is extubated, we will start the patient on GHAZALA inhibitors. Review the echocardiogram. MMODL / IJN: [id number] /
--- NOTE | 2017-08-25 11:57 | ECHOF ---
Referral Reason:mi MEASUREMENTS -------- HEIGHT: 182.9 cm WEIGHT: 95.3 kg BP: 133/75 IVSd: 1.3 cm (0.6 - 1.1) LVIDd: 5.3 cm (3.9 - 5.3) LVPWd: 1.3 cm (0.6 - 1.1) IVSs: 1.7 cm LVIDs: 4.4 cm LVPWs: 1.1 cm Ao Diam: 3.7 cm (2.0 - 3.7) AV Cusp: 2.1 cm (1.5 - 2.6) LA Diam: 2.8 cm (2.7 - 3.8) MV EXCURSION: 12.495 mm (> 18.000) MV EF SLOPE: 55 mm/s (70 - 150) EPSS: 1.6 cm MV E Narendra: 0.44 m/s MV DecT: 162 ms MV A Narendra: 0.79 m/s MV E/A Ratio: 0.56 RAP: 5.00 mmHg RVSP: 8.30 mmHg FINDINGS -------- Sinus rhythm. This was a technically difficult study with suboptimal views. The left ventricular size is normal. There is mild concentric left ventricular hypertrophy. Overa ll left ventricular systolic function is severely impaired with, an EF between 25 - 30 %. Basal inf eroseptal LV wall motion is normal. Inferiorlateral Hypokinesis The right ventricle is normal in size and function. The left atrium is normal in size. Lumason used Aortic valve is trileaflet and is mildly thickened. The mitral valve leaflets are mildly thickened. Mild mitral annular calcification present. Mild m itral regurgitation is present. Mild tricuspid regurgitation present. The right ventricular systolic pressure, as measured by Doppl er, is 8.30mmHg. Pulmonic valve appears structurally normal. The aortic root size is normal. The pericardium is normal. CONCLUSIONS -------- 1. Sinus rhythm. 2. This was a technically difficult study with suboptimal views. 3. The left ventricular size is normal. 4. There is mild concentric left ventricular hypertrophy. 5. Overall left ventricular systolic function is severely impaired with, an EF between 25 - 30 %. 6. Basal inferoseptal LV wall motion is normal. 7. Inferiorlateral Hypokinesis 8. The right ventricle is normal in size and function. 9. The left atrium is normal in size. 10. Lumason used 11. Aortic valve is trileaflet and is mildly thickened. 12. The mitral valve leaflets are mildly thickened. 13. Mild mitral annular calcification present. 14. Mild mitral regurgitation is present. 15. Mild tricuspid regurgitation present. 16. The right ventricular systolic pressure, as measured by Doppler, is 8.30mmHg. 17. Pulmonic valve appears structurally normal. 18. The aortic root size is normal. 19. The pericardium is normal. BOX CAR CHECKER: Ofelia Hu RDCS
[2017-08-25 12:20] LABS: Glucose,Whole Blood 183 mg/dL (75-99)
[2017-08-25] MEDS: INSULIN ASPART 100 UNIT/ML 1 ML 10 ML VIAL SQ SCH ×3 (12:20→22:44)
[2017-08-25] MEDS ORDERED: POTASSIUM CHLORIDE ORAL LIQUID 40 MEQ/30 ML CUP NG-TUBE SCH (13:00)
[2017-08-25 18:12] LABS: Glucose,Whole Blood 125 mg/dL (75-99)
[2017-08-25 18:42] LABS: Hemoglobin A1C 5.4 % (4.0-6.0)
--- NOTE | 2017-08-25 18:49 | HP ---
HISTORY AND PHYSICAL DATE OF SERVICE: 08/25/2017 CHIEF COMPLAINTS: Unresponsiveness and myocardial infarction. HISTORY OF PRESENT ILLNESS: This 57-year-old gentleman with a past medical history of multiple medical problems, including COPD, CVA, TIA, GERD, hypertension, hyperlipidemia, history of CAD and myocardial infarction in 2007, being followed by Dr. Benavides in the outpatient setting, apparently was found to be unresponsive at home. His heard a thud and subsequently EMS was called and EMS found him to be in ventricular fibrillation. Shock was given and the patient was unresponsive. The patient was intubated and mechanically ventilated and the patient underwent cardiac catheterization by Cardiology. The patient also underwent successful stenting of the totally occluded mid RCA, a long segment, with reduction of stenosis from 100% to 0%. Otherwise, the patient is mechanically intubated. Patient is unable to give a coherent history. Most of the history is taken from my discussion with staff as well as review of the chart at this time. PAST MEDICAL HISTORY: 1. COPD. 2. CVA. 3. GERD. 4. Hypertension. 5. Hyperlipidemia. 6. History of myocardial infarction. 7. CAD. HOME MEDICATIONS: 1. Nitroglycerin 0.4 sublingually p.r.n. 2. Zocor 40 mg at bedtime. 3. Imdur ER 60 mg daily. 4. Ventolin HFA 2 puffs p.r.n. 5. Plavix 75 mg daily. 6. Tenormin 25 mg daily. ALLERGIES: IODINATED CONTRAST DYES. FAMILY HISTORY: Cancer in the family. SOCIAL HISTORY: History of smoking. History of THC. REVIEW OF SYSTEMS: Review of systems could not be taken; the patient was mechanically ventilated and intubated. PHYSICAL EXAMINATION: Pulse 65, blood pressure 117/64, respiration 19, temperature normal, pulse ox 96% on 40% FiO2. Mechanical ventilation settings are noted. HEENT: Conjunctivae normal. Oral mucosa moist. NECK: No jugular venous distention. No carotid bruit. No lymph node enlargement. CARDIOVASCULAR SYSTEM: S1, S2 muffled. No S3. No S4. RESPIRATORY SYSTEM: Breath sounds diminished at the bases. A few scattered rhonchi and crackles. Expiratory wheezing also present. ABDOMEN: Soft, non-tender. No mass palpable. LEGS: No edema. No swelling. NERVOUS SYSTEM: Higher functions as mentioned earlier. Moves all 4 limbs. No focal motor or sensory deficit. LYMPHATICS: No lymph node palpable in neck, axillae or groin. SKIN: No ulcer, rash, bleeding. LABS: ABGs noted. Otherwise, troponin 1.450. WBC 14.4. The EKG showed ST-T changes. ASSESSMENT: 1. Acute OE-cvxqojz-gxclztxmt inferior wall myocardial infarction, status post cardiac catheterization and stenting of the totally occluded mid right coronary artery in a long segment with reduction of stenosis from 100% to 0%. 2. History of coronary artery disease and myocardial infarction. 3. History of peripheral vascular disease. 4. History of continued ongoing nicotine dependence. 5. History of cerebrovascular accident, transient ischemic attack. 6. Chronic obstructive pulmonary disease. 7. Gastroesophageal reflux disease. 8. Hypertension. 9. Hyperlipidemia. 10.History of myocardial infarction. 11.History of CVI. 12.History of cardiac catheterization. 13.History of spinal cord stimulator. 14.FULL CODE. RECOMMENDATIONS AND DISCUSSION: In this 57-year-old gentleman who presented with multiple complex medical issues., at this time we will recommend to continue current medications, continue with symptomatic treatment. I recommend repeat labs. Also recommend UA with micro. The white count is still elevated. I would recommend cultures as well. Otherwise, we will follow the patient closely with Pulmonology as well. Repeat labs have been ordered. Prognosis guarded because of multiple complex medical issues. Further recommendations to follow. MMODL / IJN: [id number] /
[2017-08-25 19:12] LABS: Appearance,Urine Cloudy (Clear); Bacteria,Urine Occasional /hpf; Bilirubin,Urine Negative (Negative); Blood,Urine Small (Negative); Color,Urine Yellow; Glucose,Urine (UA) Trace (Negative); Ketones,Urine Negative (Negative); Leukocyte Esterase,Urine Trace (Negative); Mucus,Urine Rare /hpf; PH, Urine 5.5 (5.0-8.0); Protein,Urine Trace (Negative); RBC,Urine 9 /hpf (0-5); Specific Gravity,Urine 1.033 (1.001-1.035); Urobilinogen,Urine <2.0 mg/dL (<2.0); WBC,Urine 11 /hpf (0-5)
[2017-08-25] MEDS: MAGNESIUM SULFATE-D5W PMX 1 GM in DEXTROSE/WATER 1 100ML.BAG IVPB SCH ×2 (20:28→22:41)
[2017-08-25] MEDS: ATORVASTATIN 80 MG TAB PO SCH (20:28)
[2017-08-25 22:47] LABS: Glucose,Whole Blood 139 mg/dL (75-99)
[2017-08-26] MEDS: AMIODARONE 450 MG in DEXTROSE 5% IN WATER 250 ML IV SCH ×4 (01:05→13:38)
[2017-08-26] MEDS: PROPOFOL 1,000 MG in EMPTY BAG 1 BAG IV SCH ×2 (02:25→05:57)
[2017-08-26 03:43] LABS: Glucose,Whole Blood 145 mg/dL (75-99)
[2017-08-26 05:37] LABS: Basophils # (A) 0.1 k/uL (0-0.2); Basophils % (A) 0 %; Eosinophils # (A) 0.1 k/uL (0-0.7); Eosinophils % (A) 1 %; HCT 46.8 % (39.0-53.0); HGB 15.2 gm/dL (13.0-17.5); Lymphocytes # (A) 2.6 k/uL (1.0-4.8); Lymphocytes % (A) 18 %; MCH 31.2 pg (25.0-35.0); MCHC 32.4 g/dL (31.0-37.0); MCV 96.2 fL (80.0-100.0); Mean Platelet Volume 8.2; Monocytes % (A) 6 %; Neutrophils # (A) 10.9 k/uL (1.3-7.7); Neutrophils % (A) 74 %; Platelet Count 148 k/uL (150-450); RBC 4.87 m/uL (4.30-5.90); RDW 14.7 % (11.5-15.5); WBC 14.8 k/uL (3.8-10.6)
[2017-08-26 05:54] LABS: Anion Gap 6 mmol/L; Blood Urea Nitrogen 13 mg/dL (9-20); Calcium 8.3 mg/dL (8.4-10.2); Carbon Dioxide 24 mmol/L (22-30); Chloride 107 mmol/L (98-107); Glucose 130 mg/dL (74-99); Phosphorus 2.7 mg/dL (2.5-4.5); Potassium 4.3 mmol/L (3.5-5.1); Sodium 137 mmol/L (137-145)
[2017-08-26 05:55] LABS: ABG HCO3 26 mmol/L (21-25); ABG PCO2 40 mmHg (35-45); ABG PH 7.42 (7.35-7.45); ABG PO2 89 mmHg (83-108); ABG TCO2 27 mmol/L (19-24)
[2017-08-26] MEDS: SODIUM CHLORIDE 0.9% 1,000 ML IV SCH ×2 (05:58→18:24)
[2017-08-26 06:02] LABS: Glucose,Whole Blood 144 mg/dL (75-99)
[2017-08-26] MEDS: INSULIN ASPART 100 UNIT/ML 1 ML 10 ML VIAL SQ SCH ×3 (06:04→18:29)
--- NOTE | 2017-08-26 07:23 | XR ---
EXAMINATION TYPE: XR chest 1V portable DATE OF EXAM: 08/26/2017 COMPARISON: 08/25/2017 HISTORY: Shortness of breath TECHNIQUE: Single frontal view of the chest is obtained. FINDINGS: ET tube and NG tube stable. Catheter overlying the mid thoracic spine is stable. Bilateral infiltrate and interstitial pattern seen. Small left pleural effusion. No pneumothorax. Arthropathy of the left shoulder and chronic appearing changes noted on the right. IMPRESSION: 1. Bilateral perihilar infiltrate with small left effusion. Correlate for venous congestion. No inter adalgisa change.
[2017-08-26] MEDS: IPRATROPIUM-ALBUTEROL 3 ML NEB INHALATION SCH ×4 (07:36→20:21)
[2017-08-26] MEDS: SPIRONOLACTONE 25 MG TAB PO SCH (08:37)
[2017-08-26] MEDS: HEPARIN SODIUM,PORCINE 5,000 UNIT/ML 1 ML VIAL SQ SCH ×2 (08:37→16:32)
[2017-08-26] MEDS: CLOPIDOGREL 75 MG TAB PO SCH (08:38)
[2017-08-26] MEDS: ASPIRIN 81 MG PO SCH (08:38)
[2017-08-26] MEDS: METOPROLOL TARTRATE 25 MG TAB PO SCH ×2 (08:38→20:25)
[2017-08-26] MEDS: CHLORHEXIDINE GLUCONATE 15 ML CUP MUCOUS MEM SCH (08:38)
[2017-08-26] MEDS: PIPERACILLIN-TAZOBACTAM 3.375 GM in DEXTROSE/WATER 1 50ML.BAG IVPB SCH ×2 (08:45→16:32)
[2017-08-26] MEDS ORDERED: FUROSEMIDE 10 MG/ML 2 ML VIAL IV ONE (09:12)
[2017-08-26 09:57] LABS: ABG Base Excess 1.7 mmol/L; ABG HCO3 26 mmol/L (21-25); ABG Oxygen Saturation 98.8 % (94-97); ABG PCO2 41 mmHg (35-45); ABG PH 7.41 (7.35-7.45); ABG PO2 105 mmHg (83-108); ABG TCO2 28 mmol/L (19-24)
--- NOTE | 2017-08-26 10:13 | PN ---
PROGRESS NOTE This patient's medical record is reviewed. This patient is status post cardiac arrest. The patient's cardiac status appears to be primary V Fib. There is no definite evidence of any acute myocardial infarction during this admission. The patient is waking up. He still remains intubated. Patient is slightly confused. The blood pressure is 140/60 mmHg. First and second heart sounds are normal. Lungs reveal bilateral scattered wheezes. No more arrhythmias are noted. The patient currently is getting IV amiodarone drip. We will continue change the patient to the p.o. amiodarone after the IV is finished. Lopressor will be increased to 50 mg twice a day if the blood pressure permits and lisinopril 5 mg daily is added. MMODL / IJN: [id number] /
[2017-08-26] MEDS: AMIODARONE 200 MG TAB PO SCH ×4 (10:16→20:25)
[2017-08-26] MEDS: LISINOPRIL 5 MG TAB PO SCH (10:17)
[2017-08-26 13:39] LABS: Glucose,Whole Blood 120 mg/dL (75-99)
--- NOTE | 2017-08-26 17:56 | P.PN ---
Subjective Progress Note Date: 08/26/17 A 57-year-old male patient who came in to the hospital with an acute cardiac arrest. The patient was found to be unresponsive by his . Apparently the patient had gone to bed around 10 PM. The heard and no complications and upon check in on her , she found him laying face down on the floor. EMS was called to the scene and the patient was initially found to be in ventricular fibrillation and he was immediately shocked and defibrillated and the patient had return of spontaneous circulation. The patient also began having spontaneous breathing. EMS put him on 100% nonrebreather and the patient got moved to the emergency department. The exact downtime is not clear although this is estimated to be around 5 minutes at least. The patient came in to the emergency department and the patient was found to have acute ST segment elevation myocardial infarction involving the inferior leads with reciprocal changes laterally. Acute myocardial infarction was suspected. The patient was immediately taken to the [facility] and the patient underwent a cardiac catheterization he was found to have 100% occlusion of the RCA and the patient underwent angioplasty and stenting of the RCA. Following that, the patient was moved to the intensive care unit intubated on a mechanical ventilator. This morning, the patient is on 10 mics of the Diprivan and is calm and comfortable. He is hemodynamically stable on no pressors. He is producing adequate amount of urine output. Overnight he was placed on IV fluids with normal saline at the rate of 75 mL an hour. His chest x-ray from today shows perihilar and upper lobe infiltrates that have increased compared to yesterday and I suspect this is related to pulmonary vessel congestion. I also suspect that the patient could've aspirated knowing that the pulmonary infiltration on the right especially in the right upper lung area is worse compared to the left. The patient also having some respiratory secretions being suctioned from the orotracheal tube that are rather thick and purulent. ET tube is in a good location. NG tube is also in the stomach. Echocardiogram was done this morning and the results are still pending for now. Meanwhile, the patient's troponins were minimally elevated at 0.03 initially and subsequently up to 0.5. The patient's creatinine today is at 1.2. His blood gases from this morning showed a pH of 7.35 with a pCO2 of 45 and pO2 of 246 and this was done on assist control mode at the rate of 14, tidal volume 550, FiO2 of 100% and a PEEP of 5. Based on his blood gases, the patient's FiO2 was dropped down to 50% . The patient is known to have coronary artery disease and the patient has been involved in a myocardial infarction back in 2007. The patient also has had previous CVA and left-sided weakness and previous history of carotid artery stenosis. He is also known to have peripheral vascular disease with iliac stents. On 08/26 2017 I'm seeing this patient for a follow-up. As mentioned earlier the patient recovered from acute cardiac arrest. He had ventricular fibrillation. Cardiac catheterization and stenting of the RCA. He was given amiodarone loading and currently is on amiodarone maintenance. His cardiac rhythm remains sinus. This morning the patient was sedated Diprivan is was calm and comfortable. He was assist control mode of ventilation. He was on a rate of 14 with a tidal volume of 550 FiO2 of 40% and a PEEP of 5. The blood gases from this morning showed a pH of 7.42 with a pCO2 of 40 and pO2 of 89. Patient was on no pressors. The patient was afebrile. Chest x-ray from today showed no acute abnormalities and EGD was in a good location. The patient had some perihilar pulmonary infiltrate and small left-sided pleural effusion. The sputum was sent for cultures and the patient was found to have gram-negative bacillus and the patient is currently on IV Zosyn. The patient is being covered for an aspiration pneumonia. Meanwhile, the renal function remains stable and echocardiogram was done that showed impairment in the LV function with an ejection fraction of 25-30% and basilar inferior segmental wall motion abnormalities, septal hypokinesis, anterolateral hypokinesis and a PA pressure that is not elevated. Based on all this, the patient was given a sedation holiday and after approximately 45 minutes of coming off Diprivan the patient was found to open his eyes spontaneously and follows some simple commands. At that point he was given a spelled his breathing trial knowing that his weaning parameters do not to be satisfactory. Within 45 minutes a blood gases were obtained and the numbers were satisfactory and based on the fact that the patient was able to give a decent cough, the patient was extubated to a nasal cannula. He tolerated extubation well without any post exhibition stridor or respiratory distress. Hemodynamically remained also stable. We have noted that the patient has some issues with his personality knowing that he did not show any emotion and he had a flat affect. This may be related to a component of hypoxic encephalopathy post cardiac arrest. Nevertheless he was moving all 4 extremities more so in the upper extremities compared to lower extremities. Objective - Vital Signs Vital signs: Vital Signs Temp 99.3 F 08/26/17 16:00 Pulse 92 08/26/17 16:43 Resp 18 08/26/17 16:00 BP 140/58 08/26/17 16:00 Pulse Ox 95 08/26/17 16:00 Intake & Output 08/25/17 08/26/17 08/26/17 18:59 06:59 18:59 Intake Total 1219.0 1169.745 944.513 Output Total 920 1015 3325 Balance 299.0 154.745 -2380.487 Weight 91.1 kg 95.9 kg 95.9 kg Intake: IV 900 900 800 Piperacillin-Tazobactam 3 50 .375 gm In Dextrose/Water 1 50ml.bag @ 12.5 mls/hr IVPB Q8HR RANDI Rx#: [id number] Sodium Chloride 0.9% 1, 900 900 750 000 ml @ 75 mls/hr IV . [id number] RANDI Rx#:[id number] Intake, IV Titration 319.0 269.745 84.513 Amount Amiodarone 450 mg In 259 114.491 Dextrose 5% in Water 250 ml @ 1 MG/MIN 34.53 mls/ hr IV .[id number] RANDI Rx#: [id number] Piperacillin-Tazobactam 3 50 37.5 .375 gm In Dextrose/Water 1 50ml.bag @ 12.5 mls/hr IVPB Q8HR RANDI Rx#: [id number] Propofol 1,000 mg In 10.0 155.254 47.013 Empty Bag 1 bag @ Titrate IV .Q0M RANDI Rx#: [id number] Other 60 Output: Urine 920 1015 3325 Other: Voiding Method Indwelling Catheter Indwelling Catheter Indwelling Catheter ABP, PAP, CO, CI - Last Documented Arterial Blood Pressure 153/86 - Exam Gen. appearance the patient is extubated, comfortable on nasal cannula not having any respiratory distress. He follows only simple commands. Still nonverbal at this point.Head exam was generally normal. There was no scleral icterus or corneal arcus. Mucous membranes were moist.Neck was supple and without jugular venous distension, thyromegaly, or carotid bruits. Carotids were easily palpable bilaterally. There was no adenopathy. Lung sounds are diminished bilaterally especially lung bases along with some minor bibasilar crackles.Cardiac exam revealed the PMI to be normally situated and sized. The rhythm was regular and no extrasystoles were noted during several minutes of auscultation. The first and second heart sounds were normal and physiologic splitting of the second heart sound was noted. There were no murmurs, rubs, clicks, or gallops.Abdominal exam revealed normal bowel sounds. The abdomen was soft, non-tender, and without masses, organomegaly, or appreciable enlargement of the abdominal aorta.Examination of the extremities revealed easily palpable radial, femoral and pedal pulses. There was no cyanosis, clubbing or edema.Examination of the skin revealed no evidence of significant rashes, suspicious appearing nevi or other concerning lesions. Neurologically the patient has no focal neurological deficit. Cranial nerves seem to be intact. Cough is present. Pupils are equal and reactive to light. No Babinski or clonus at this point. - Labs CBC & Chem 7: 08/26/17 04:40 08/26/17 04:40 Labs: Abnormal Lab Results - Last 24 Hours (Table) 08/25/17 08/25/17 08/25/17 Range/Units 18:10 19:00 22:43 WBC (3.8-10.6) k/uL Plt Count (150-450) k/uL Neutrophils # (1.3-7.7) k/uL ABG HCO3 (21-25) mmol/L ABG Total CO2 (19-24) mmol/L ABG O2 Saturation (94-97) % Glucose (74-99) mg/dL POC Glucose (mg/dL) 125 H 139 H (75-99) mg/dL Calcium (8.4-10.2) mg/dL Magnesium (1.6-2.3) mg/dL Urine Protein Trace H (Negative) Urine Glucose (UA) Trace H (Negative) Urine Blood Small H (Negative) Ur Leukocyte Esterase Trace H (Negative) Urine RBC 9 H (0-5) /hpf Urine WBC 11 H (0-5) /hpf Urine Bacteria Occasional H (None) /hpf Urine Mucus Rare H (None) /hpf 08/25/17 08/26/17 08/26/17 Range/Units 23:45 04:40 04:40 WBC 14.8 H (3.8-10.6) k/uL Plt Count 148 L (150-450) k/uL Neutrophils # 10.9 H (1.3-7.7) k/uL ABG HCO3 (21-25) mmol/L ABG Total CO2 (19-24) mmol/L ABG O2 Saturation (94-97) % Glucose 130 H (74-99) mg/dL POC Glucose (mg/dL) 145 H (75-99) mg/dL Calcium 8.3 L (8.4-10.2) mg/dL Magnesium 2.5 H (1.6-2.3) mg/dL Urine Protein (Negative) Urine Glucose (UA) (Negative) Urine Blood (Negative) Ur Leukocyte Esterase (Negative) Urine RBC (0-5) /hpf Urine WBC (0-5) /hpf Urine Bacteria (None) /hpf Urine Mucus (None) /hpf 08/26/17 08/26/17 08/26/17 Range/Units 05:50 06:00 09:50 WBC (3.8-10.6) k/uL Plt Count (150-450) k/uL Neutrophils # (1.3-7.7) k/uL ABG HCO3 26 H 26 H (21-25) mmol/L ABG Total CO2 27 H 28 H (19-24) mmol/L ABG O2 Saturation 98.8 H (94-97) % Glucose (74-99) mg/dL POC Glucose (mg/dL) 144 H (75-99) mg/dL Calcium (8.4-10.2) mg/dL Magnesium (1.6-2.3) mg/dL Urine Protein (Negative) Urine Glucose (UA) (Negative) Urine Blood (Negative) Ur Leukocyte Esterase (Negative) Urine RBC (0-5) /hpf Urine WBC (0-5) /hpf Urine Bacteria (None) /hpf Urine Mucus (None) /hpf 08/26/17 Range/Units 13:37 WBC (3.8-10.6) k/uL Plt Count (150-450) k/uL Neutrophils # (1.3-7.7) k/uL ABG HCO3 (21-25) mmol/L ABG Total CO2 (19-24) mmol/L ABG O2 Saturation (94-97) % Glucose (74-99) mg/dL POC Glucose (mg/dL) 120 H (75-99) mg/dL Calcium (8.4-10.2) mg/dL Magnesium (1.6-2.3) mg/dL Urine Protein (Negative) Urine Glucose (UA) (Negative) Urine Blood (Negative) Ur Leukocyte Esterase (Negative) Urine RBC (0-5) /hpf Urine WBC (0-5) /hpf Urine Bacteria (None) /hpf Urine Mucus (None) /hpf Microbiology - Last 24 Hours (Table) 08/25/17 02:11 Gram Stain - Preliminary Sputum Sputum Culture - Preliminary Gram Neg Bacilli 08/25/17 19:00 Urine Culture - Preliminary Urine,Catheterized Assessment and Plan Plan: Assessment 1 acute cardiac arrest/ventricle fibrillation, status post successful defibrillation and resuscitation with a downtime estimated to be around 5-10 minutes. The patient was loaded with amiodarone and currently is on oral amiodarone 400 mg 3 times a day per space and storage clerk recommendation. No further episodes of ventricular arrhythmia noted over the past 24 hours. Rule out underlying hypoxic encephalopathy as the patient has some changed his personality and affect. The preliminary neurologic examination shows no focal deficit at this point. [address] segment elevation inferior wall myocardial infarction, status post emergent cardiac catheterization and stenting of RCA 2 stents. 3 acute respiratory failure secondary to above, the patient was successfully extubated this morning and currently is on a nasal cannula. 4 suspected right basilar aspiration pneumonia currently on IV Zosyn. Sputum is growing gram-negative bacillus 5 COPD 6 known history of coronary artery disease with previous NM in 2007 7 history of CVA with some residual left-sided weakness 8 congestion heart failure with segmental wall motion abnormalities and the patient has an ejection fraction of 25% 9 peripheral vascular disease with history of iliac stents 10 hyperlipidemia 11 hypertension 12 obstructive sleep apnea 13 chronic back pain 14 degenerative arthritis 15 possible nasal bone fracture and pansinusitis and the patient was started on IV Zosyn. No evidence of any cervical spine fracture and there is mild spondylosis at the level of C5-C6 16 carotid artery stenosis Plan Will monitor the patient's neurologic function as he recovers from his cardiac arrest and the effect of sedative medications wear off. He was extubated successfully. We'll monitor his hemodynamics. Continued IV Zosyn awaiting final cultures from the sputum Gram stain and culture. Continue amiodarone 200 mg by mouth 3 times a day. Aspirin and Plavix. High-dose statins. Metoprolol 25 mg twice a day. Echocardiogram was noted. We'll continue to follow. Further recommendations are to follow based his overall progress. There is a critically care evaluation that was done and more than 30 minutes. Specifically I spent 34 minutes on this patient. The family was also updated on his current condition. Time with Patient: Greater than 30
--- NOTE | 2017-08-26 18:24 | CT ---
EXAMINATION: CT brain wo con DATE AND TIME: 08/26/2017 6:17 PM ORDERING PROVIDER: Dulce Hernandez MD CLINICAL INDICATION: stroke?? TECHNIQUE: Standard departmental protocol. DLP 935 mGy-cm. COMPARISON: None. DESCRIPTION: The calvarium is intact. There is no intracranial hemorrhage. There is no mass or mass e ffect. There is no definite new attenuation defect. Remainder of the intra-axial and extra-axial comp artment examination is unremarkable. The paranasal sinuses, middle ear cavities, and mastoid sinus ai r cells are clear. The orbits are intact. IMPRESSION: NO ACUTE PROCESS.
[2017-08-26 18:29] LABS: Glucose,Whole Blood 132 mg/dL (75-99)
[2017-08-26] MEDS ORDERED: DEXTROSE 5% IN WATER 100 ML with AMIODARONE 150 MG IV ONE (19:00)
[2017-08-26] MEDS ORDERED: LORazepam 2 MG/ML INJ IV STA (19:27)
--- NOTE | 2017-08-26 20:11 | EEG ---
ELECTROENCEPHALOGRAM REPORT DATE OF SERVICE: 08/26/2017 REASON FOR TESTING: Altered mental status, status post cardiac arrest. DESCRIPTION OF THE PROCEDURE: This EEG was performed using a 21-channel digital electroencephalograph, following international 10-20 system. DESCRIPTION OF THE RECORDING: From the beginning of the tracing, and with patient's eyes closed, the background rhythm was mostly consisting of 7 Hz theta frequency in the posterior occipital leads. No obvious asymmetry is seen. Occasional movement artifacts are noticed. Photic stimulation was performed with no driving response seen. No pathological waves were elicited. More frequent movement artifacts are seen near the end of the tracing. Hyperventilation was not performed. The patient remains awake throughout the tracing. No epileptiform discharges were seen. His EKG lead showed a regular rate and rhythm. INTERPRETATION: This awake EEG is abnormal due to the presence of generalized slowing of the background rhythm, mostly in the theta range. This is consistent with mild encephalopathy. No epileptiform discharges were seen. The absence of epileptiform discharges does not rule out the diagnosis of epilepsy; therefore clinical correlation is recommended. MMSTANISLAWL / IJN: [id number] /
[2017-08-26] MEDS: ATORVASTATIN 80 MG TAB PO SCH (20:25)
--- NOTE | 2017-08-26 20:56 | PN ---
PROGRESS NOTE DATE OF SERVICE: 08/26/2017 This 57-year-old gentleman who was admitted with acute AV-rxfolis-mtbkorvet myocardial infarction had cardiac catheterization. The patient is extubated, but he is barely responsive at this time. The neurology evaluation is in progress. Cardiology is following the patient closely. Past medical history reviewed. Review of systems could not be taken because of the change in mental status. CURRENT MEDICATIONS: Current medications are reviewed and include: 1. Maalox 30 mL p.r.n. 2. DuoNeb q.i.d. and p.r.n. 3. Cordarone 200 mg t.i.d. 4. Aspirin 81 mg. 5. Lipitor 80 mg at bedtime. 6. Atropine 0.5 daily p.r.n. 7. Plavix 75 mg daily. 8. Heparin 5000 units subcutaneously q.8. 9. Lovenox. 10.Zestril 5 mg p.o. daily. 11.Lopressor 25 mg b.i.d. 12.Nitrostat 0.4 sublingually p.r.n. 13.Zosyn 3.375 IV q.8. 14.Aldactone 25 mg daily. 15.Ambien 5 mg at bedtime p.r.n. PHYSICAL EXAMINATION: Patient is alert, oriented x3. Pulse 94, blood pressure 140/58, respiration 18, temperature 99.3, pulse ox 94% on 3 L. HEENT: Conjunctivae normal. NECK: No jugular venous distention. CARDIOVASCULAR SYSTEM: S1, S2 muffled. RESPIRATORY SYSTEM: Breath sounds diminished at the bases. A few scattered rhonchi and crackles. ABDOMEN: Soft, non-tender. LEGS: No edema. No swelling. NERVOUS SYSTEM: Diffusely weak. Patient is unable to cooperate with the full nervous system exam. SKIN: No ulcer, rash, bleeding. LABS: WBC 14.8. ABGs noted. Otherwise, Accu-Cheks 144. Magnesium is 2.5. ASSESSMENT: 1. Cardiac arrest, possibly primary ventricular fibrillation, possibly acute ST- segment-elevation inferior wall myocardial infarction, status post cardiac stenting of the totally occluded right coronary artery in a long segment with reduction in stenosis from 100% to 0%. 2. History of coronary artery disease and myocardial infarction. 3. History of peripheral vascular disease. 4. History of and continued ongoing nicotine dependence. 5. History of cerebrovascular accident, transient ischemic attack. 6. Chronic obstructive pulmonary disease. 7. Gastroesophageal reflux disease. 8. Hypertension. 9. Hyperlipidemia. 10.Change in mental status, metabolic encephalopathy. 11.History of myocardial infarction. 12.History of cerebrovascular accident. 13.History of cardiac catheterization. 14.History of spinal cord stimulator. 15.FULL CODE. RECOMMENDATIONS AND DISCUSSION: I recommend to continue current medications, continue symptomatic treatment. Otherwise at this time I would recommend neurology consultation. EEG has been ordered. I would also recommend a repeat CT scan of the brain to rule out the possibility of an acute stroke. Otherwise, prognosis is guarded because of the multiple complex medical issues. Further recommendations to follow. The patient has multiple complex medical issues. MMODL / IJN: [id number] /
[2017-08-27] LABS: Glucose,Whole Blood 104 mg/dL (75-99)
[2017-08-27] MEDS: PIPERACILLIN-TAZOBACTAM 3.375 GM in DEXTROSE/WATER 1 50ML.BAG IVPB SCH ×2 (00:54→07:38)
[2017-08-27] MEDS: INSULIN ASPART 100 UNIT/ML 1 ML 10 ML VIAL SQ SCH ×3 (00:55→12:14)
[2017-08-27] MEDS: HEPARIN SODIUM,PORCINE 5,000 UNIT/ML 1 ML VIAL SQ SCH ×4 (00:55→22:53)
[2017-08-27] MEDS: SODIUM CHLORIDE 0.9% 1,000 ML IV SCH ×4 (01:07→22:50)
[2017-08-27 04:44] LABS: Basophils # (A) 0.1 k/uL (0-0.2); Basophils % (A) 0 %; Eosinophils # (A) 0.1 k/uL (0-0.7); Eosinophils % (A) 0 %; HGB 15.6 gm/dL (13.0-17.5); Lymphocytes # (A) 2.3 k/uL (1.0-4.8); Lymphocytes % (A) 17 %; MCH 31.1 pg (25.0-35.0); MCHC 34.6 g/dL (31.0-37.0); Mean Platelet Volume 7.8; Monocytes # (A) 0.6 k/uL (0-1.0); Monocytes % (A) 5 %; Neutrophils # (A) 10.1 k/uL (1.3-7.7); Neutrophils % (A) 76 %; Platelet Count 143 k/uL (150-450); RBC 5.01 m/uL (4.30-5.90); RDW 13.8 % (11.5-15.5); WBC 13.3 k/uL (3.8-10.6)
[2017-08-27 04:52] LABS: MCV 89.7 fL (80.0-100.0)
[2017-08-27 05:06] LABS: Anion Gap 11 mmol/L; Blood Urea Nitrogen 12 mg/dL (9-20); Carbon Dioxide 23 mmol/L (22-30); Chloride 103 mmol/L (98-107); Glucose 105 mg/dL (74-99); Phosphorus 2.4 mg/dL (2.5-4.5); Potassium 3.9 mmol/L (3.5-5.1); Sodium 137 mmol/L (137-145)
[2017-08-27] MEDS ORDERED: Phosphorus Replacement Protoco 1 EACH MISC MISCELLANE PRN (05:18)
[2017-08-27] MEDS ORDERED: POTASSIUM PHOSPHATE 10 MMOL in SODIUM CHLORIDE 0.9% 250 ML IV ONE (06:00)
[2017-08-27 06:03] LABS: Glucose,Whole Blood 103 mg/dL (75-99)
--- NOTE | 2017-08-27 06:33 | CONS ---
CONSULTATION DATE OF CONSULTATION: 08/26/2017. CHIEF COMPLAINT: Altered mental status. HISTORY OF PRESENT ILLNESS: Mr. Pierre is a 57-year-old, male, who is being evaluated by the neurology service per the request of Dr. Hernandez for altered mental status. The patient was brought into [facility] after he had a cardiac arrest at home. His had heard a thump and when she went to check up on him he was on the floor unresponsive. EMS was called. Estimated down time was 5-10 minutes. According to the chart, the patient was found to be in ventricular fibrillation and was immediately shocked and defibrillated and the patient returned to normal heart rhythm after that. He had an immediate heart catheterization when he arrived to [facility] and was found to have extensive cardiac disease and 2 stents were placed. The patient was admitted to the intensive care unit and was on mechanical ventilation. Today, he was extubated but he remains quite confused. He is sometimes following commands and other times not following any commands. He has been nonverbal since his extubation. A stat CT scan of the brain had been done which showed no acute intracranial abnormalities. A repeat CT scan of the brain was done two hours ago which again showed no acute intracranial abnormalities. I had attempted to order an MRI of the brain, but the patient has a stimulator implantation and could not undergo any MRI imaging. The patient does have extensive history of heart disease and has had previous myocardial infarction and peripheral vascular disease. He also has history of stroke with residual left hemiparesis. His CBC today showed mild leukocytosis at 14.8, and mild thrombocytopenia at 148,000. His basic metabolic profile was normal except for hypocalcemia at 8.3. His magnesium was slightly elevated at 2.5. I did review his EEG from today which showed mild encephalopathy. At the time of my evaluation, the patient is lying in his intensive care unit bed and appears to be in no acute distress. He is following simple commands when coached to do so. He is not following any full verbal commands without coaching. He is nonverbal. PAST MEDICAL HISTORY: Stroke, gastroesophageal reflux disease, chronic obstructive pulmonary disease, dyslipidemia, hypertension, history of myocardial infarction, arthritis, sleep apnea, peripheral vascular disease, coronary artery disease, restless legs syndrome, chronic low back pain, history of spinal cord stimulator implantation, right shoulder surgery, left knee surgery, left iliac artery stent placements and right iliac artery stent placement. SOCIAL HISTORY: The patient is a current every day smoker. There is no history of any alcohol or IV drug use. He does smoke medical marijuana according to the chart. FAMILY HISTORY: Positive for hypertension and cancer. HOME MEDICATIONS: Reviewed in the chart. ALLERGIES: Oral and IV dye. REVIEW OF SYSTEMS: Unable to obtain, as the patient is nonverbal. PHYSICAL EXAM: Vital signs show a temperature of 99.3, pulse 92, respiration 18, blood pressure 140/58. GENERAL APPEARANCE: The patient is a well-developed, male, who appears to be in no acute distress. HEENT: Normocephalic, atraumatic, no obvious facial asymmetry is seen, slight anisocoria is noticed with the right pupil at 3 mm and left pupil at 2 mm, both reactive to light. NECK: Supple with no masses felt. CARDIOVASCULAR: Regular rate and rhythm. ABDOMEN: Nontender nondistended. EXTREMITIES: Showed no edema or clubbing. NEUROLOGICAL EXAM: The patient is awake. He appears to have global aphasia, more expressive than receptive. He does make eye contact when his name is called. With coaching, he is able to move his upper and lower extremities with no obvious lateralizing weakness seen. Strength appears to be 4+ out of 5 in all 4 extremities. Sensory exam was difficult to assess. No tremors or seizure-like activity is seen. Brainstem reflexes are intact. Anisocoria is noticed as mentioned above. IMPRESSION: 1. Altered mental status. 2. Likely hypoxic brain injury. 3. Hypoxic encephalopathy. 4. Status post cardiac arrest. 5. Coronary artery disease, status post stent placement. 6. Aphasia, expressive more than receptive. RECOMMENDATION: The patient's neurological examination and history are consistent with anoxic brain injury. He did have a down time of approximately 5-10 minutes as mentioned above. His EEG showed mild encephalopathy with no epileptiform discharges. His language testing is consistent with aphasia that is more expressive than receptive. An MRI of the brain could not be done due to his history of spinal cord stimulator implantation. We will attempt to repeat another CT scan of the brain in 24-48 hours. The patient is already on anti-platelet therapy. Cardiology is following. Continue the rest of your current workup and management. I will continue to follow with you. Further recommendations to follow. Thank you for allowing me to participate in the care of your patient. If you have any questions, please feel free to contact me. MMSTANISLAWL / IJN: [id number] /
[2017-08-27] MEDS: AMIODARONE 200 MG TAB PO SCH ×3 (07:38→21:05)
[2017-08-27] MEDS: LISINOPRIL 5 MG TAB PO SCH (07:39)
[2017-08-27] MEDS: SPIRONOLACTONE 25 MG TAB PO SCH (07:39)
[2017-08-27] MEDS: CLOPIDOGREL 75 MG TAB PO SCH (07:39)
[2017-08-27] MEDS: ASPIRIN 81 MG PO SCH (07:39)
[2017-08-27] MEDS: METOPROLOL TARTRATE 25 MG TAB PO SCH ×2 (07:39→21:05)
[2017-08-27] MEDS: IPRATROPIUM-ALBUTEROL 3 ML NEB INHALATION SCH ×4 (08:35→20:59)
--- NOTE | 2017-08-27 10:56 | XR ---
EXAMINATION TYPE: XR chest 1V portable DATE OF EXAM: 08/27/2017 COMPARISON: Prior chest x-ray 08/26/2017 HISTORY: Extubated, abnormal chest x-ray TECHNIQUE: Single frontal view of the chest is obtained. FINDINGS: There is been interval removal of the endotracheal and NG tube. Bilateral airspace disease mixed with interstitial change again noted. No evident pneumothorax or sizable effusion. Possible ar tifact is needlelike superimposed over the left neck, correlate. Thoracic cord stimulator is again no joyce. Heart remains enlarged. IMPRESSION: Correlate for congestive heart failure. Possible artifact over the base of the left neck as described, correlate to exclude foreign body.
[2017-08-27] MEDS ORDERED: FUROSEMIDE 10 MG/ML 4 ML VIAL IV STA (11:43)
--- NOTE | 2017-08-27 12:09 | PN ---
PROGRESS NOTE This patient is status post cardiac arrest. The patient looks much better than yesterday. He is alert, awake, oriented in time and person. He is not in any respiratory distress. No arrhythmias are noted. Patient is afebrile. Blood pressure is 138/69 mmHg. First and second heart sounds are normal. Respirations are not labored. Oxygen saturation is normal. FINAL IMPRESSION: This patient is admitted status post cardiac arrest. Patient had a primary V Fib, ventricular fibrillation, and tachycardia. There is no definite evidence of any acute ST-segment elevation myocardial infarction. The patient has an impaired LV systolic function in the past. Ejection fractions remains poor in the range of 30% to 35%. In view of that, the patient will be considered for AICD placement. I discussed with the family members. They want to proceed with it. We will discuss with Dr. Novak and once the patient's condition is stable, he will be considered for ICD placement in next 2 to 3 days. TEENA / FLEXN: [id number] /
[2017-08-27] MEDS: SULFAMETHOX-TMP 800-160MG 1 EACH TAB PO SCH ×2 (12:14→21:05)
--- NOTE | 2017-08-27 14:20 | P.PN ---
Subjective Progress Note Date: 08/27/17 A 57-year-old male patient who came in to the hospital with an acute cardiac arrest. The patient was found to be unresponsive by his . Apparently the patient had gone to bed around 10 PM. The heard and no complications and upon check in on her , she found him laying face down on the floor. EMS was called to the scene and the patient was initially found to be in ventricular fibrillation and he was immediately shocked and defibrillated and the patient had return of spontaneous circulation. The patient also began having spontaneous breathing. EMS put him on 100% nonrebreather and the patient got moved to the emergency department. The exact downtime is not clear although this is estimated to be around 5 minutes at least. The patient came in to the emergency department and the patient was found to have acute ST segment elevation myocardial infarction involving the inferior leads with reciprocal changes laterally. Acute myocardial infarction was suspected. The patient was immediately taken to the Managing Supervisor and the patient underwent a cardiac catheterization he was found to have 100% occlusion of the RCA and the patient underwent angioplasty and stenting of the RCA. Following that, the patient was moved to the intensive care unit intubated on a mechanical ventilator. This morning, the patient is on 10 mics of the Diprivan and is calm and comfortable. He is hemodynamically stable on no pressors. He is producing adequate amount of urine output. Overnight he was placed on IV fluids with normal saline at the rate of 75 mL an hour. His chest x-ray from today shows perihilar and upper lobe infiltrates that have increased compared to yesterday and I suspect this is related to pulmonary vessel congestion. I also suspect that the patient could've aspirated knowing that the pulmonary infiltration on the right especially in the right upper lung area is worse compared to the left. The patient also having some respiratory secretions being suctioned from the orotracheal tube that are rather thick and purulent. ET tube is in a good location. NG tube is also in the stomach. Echocardiogram was done this morning and the results are still pending for now. Meanwhile, the patient's troponins were minimally elevated at 0.03 initially and subsequently up to 0.5. The patient's creatinine today is at 1.2. His blood gases from this morning showed a pH of 7.35 with a pCO2 of 45 and pO2 of 246 and this was done on assist control mode at the rate of 14, tidal volume 550, FiO2 of 100% and a PEEP of 5. Based on his blood gases, the patient's FiO2 was dropped down to 50% . The patient is known to have coronary artery disease and the patient has been involved in a myocardial infarction back in 2007. The patient also has had previous CVA and left-sided weakness and previous history of carotid artery stenosis. He is also known to have peripheral vascular disease with iliac stents. On 08/26 2017 I'm seeing this patient for a follow-up. As mentioned earlier the patient recovered from acute cardiac arrest. He had ventricular fibrillation. Cardiac catheterization and stenting of the RCA. He was given amiodarone loading and currently is on amiodarone maintenance. His cardiac rhythm remains sinus. This morning the patient was sedated Diprivan is was calm and comfortable. He was assist control mode of ventilation. He was on a rate of 14 with a tidal volume of 550 FiO2 of 40% and a PEEP of 5. The blood gases from this morning showed a pH of 7.42 with a pCO2 of 40 and pO2 of 89. Patient was on no pressors. The patient was afebrile. Chest x-ray from today showed no acute abnormalities and EGD was in a good location. The patient had some perihilar pulmonary infiltrate and small left-sided pleural effusion. The sputum was sent for cultures and the patient was found to have gram-negative bacillus and the patient is currently on IV Zosyn. The patient is being covered for an aspiration pneumonia. Meanwhile, the renal function remains stable and echocardiogram was done that showed impairment in the LV function with an ejection fraction of 25-30% and basilar inferior segmental wall motion abnormalities, septal hypokinesis, anterolateral hypokinesis and a PA pressure that is not elevated. Based on all this, the patient was given a sedation holiday and after approximately 45 minutes of coming off Diprivan the patient was found to open his eyes spontaneously and follows some simple commands. At that point he was given a spelled his breathing trial knowing that his weaning parameters do not to be satisfactory. Within 45 minutes a blood gases were obtained and the numbers were satisfactory and based on the fact that the patient was able to give a decent cough, the patient was extubated to a nasal cannula. He tolerated extubation well without any post exhibition stridor or respiratory distress. Hemodynamically remained also stable. We have noted that the patient has some issues with his personality knowing that he did not show any emotion and he had a flat affect. This may be related to a component of hypoxic encephalopathy post cardiac arrest. Nevertheless he was moving all 4 extremities more so in the upper extremities compared to lower extremities. On I'm seeing the patient in follow-up. The patient was extubated yesterday without any major difficulties. This morning he is wide awake and communicating. He is able to move all 4 extremities without any limitation. No headaches. No change in mental status. Cardiac rhythm is sinus. No cardiac arrhythmias have been noted. The patient is afebrile hemodynamically stable. No angina. Chest x-ray shows some limited bibasilar pulmonary infiltrates. The sputum analysis showing Serratia marcescens that was resistant to Zosyn. and the patient is afebrile and his white cell count is at 13.3. The patient is currently on room air oxygen pulse 6 setting at around 94% . Objective - Vital Signs Vital signs: Vital Signs Temp 98.2 F 08/27/17 12:00 Pulse 94 08/27/17 13:00 Resp 17 08/27/17 13:00 BP 110/65 08/27/17 13:00 Pulse Ox 94 L 08/27/17 12:00 Intake & Output 08/26/17 08/27/17 08/27/17 18:59 06:59 18:59 Intake Total 6800.077 2205.5 425 Output Total 3575 1980 1145 Balance -2480.487 -942.5 -720 Weight 95.9 kg 89.3 kg Intake: IV 950 937.5 425 Piperacillin-Tazobactam 3 50 37.5 50 .375 gm In Dextrose/Water 1 50ml.bag @ 12.5 mls/hr IVPB Q8HR RANDI Rx#: [id number] Sodium Chloride 0.9% 1, 900 900 375 000 ml @ 75 mls/hr IV . [id number] RANDI Rx#:[id number] Intake, IV Titration 84.513 100 Amount IV Fluid Continuation 1, 100 000 ml As IV .[facility] Rx#:[id number] Piperacillin-Tazobactam 3 37.5 .375 gm In Dextrose/Water 1 50ml.bag @ 12.5 mls/hr IVPB Q8HR RANDI Rx#: [id number] Propofol 1,000 mg In 47.013 Empty Bag 1 bag @ Titrate IV .Q0M RANDI Rx#: [id number] Other 60 Output: Urine 3575 1980 1145 Other: Voiding Method Indwelling Catheter Indwelling Catheter Indwelling Catheter ABP, PAP, CO, CI - Last Documented Arterial Blood Pressure 153/86 - Exam Gen. appearance the patient is extubated, and the patient is awake and alert and following commands and answer questions appropriately..Head exam was generally normal. There was no scleral icterus or corneal arcus. Mucous membranes were moist.Neck was supple and without jugular venous distension, thyromegaly, or carotid bruits. Carotids were easily palpable bilaterally. There was no adenopathy. Lung sounds are diminished bilaterally especially lung bases along with some minor bibasilar crackles.Cardiac exam revealed the PMI to be normally situated and sized. The rhythm was regular and no extrasystoles were noted during several minutes of auscultation. The first and second heart sounds were normal and physiologic splitting of the second heart sound was noted. There were no murmurs, rubs, clicks, or gallops.Abdominal exam revealed normal bowel sounds. The abdomen was soft, non-tender, and without masses, organomegaly, or appreciable enlargement of the abdominal aorta.Examination of the extremities revealed easily palpable radial, femoral and pedal pulses. There was no cyanosis, clubbing or edema.Examination of the skin revealed no evidence of significant rashes, suspicious appearing nevi or other concerning lesions. Neurologically the patient has no focal neurological deficit. Cranial nerves seem to be intact. Cough is present. Pupils are equal and reactive to light. No Babinski or clonus at this point. - Labs CBC & Chem 7: 08/27/17 04:11 08/27/17 04:11 Labs: Abnormal Lab Results - Last 24 Hours (Table) 08/26/17 08/26/17 08/27/17 Range/Units 18:27 23:57 04:11 WBC 13.3 H (3.8-10.6) k/uL Plt Count 143 L (150-450) k/uL Neutrophils # 10.1 H (1.3-7.7) k/uL Glucose (74-99) mg/dL POC Glucose (mg/dL) 132 H 104 H (75-99) mg/dL Phosphorus (2.5-4.5) mg/dL 08/27/17 08/27/17 Range/Units 04:11 06:01 WBC (3.8-10.6) k/uL Plt Count (150-450) k/uL Neutrophils # (1.3-7.7) k/uL Glucose 105 H (74-99) mg/dL POC Glucose (mg/dL) 103 H (75-99) mg/dL Phosphorus 2.4 L (2.5-4.5) mg/dL Microbiology - Last 24 Hours (Table) 08/25/17 02:11 Gram Stain - Final Sputum Sputum Culture - Final Serratia marcescens 08/25/17 19:00 Urine Culture - Final Urine,Catheterized 08/25/17 17:09 Blood Culture - Preliminary Blood No Growth after 24 hours Assessment and Plan Plan: Assessment 1 acute cardiac arrest/ventricle fibrillation, status post successful defibrillation and resuscitation with a downtime estimated to be around 5-10 minutes. The patient was successfully resuscitated. The patient is currently on oral amiodarone and beta blockers. The patient is not having any further arrhythmia and his cardiac rhythm is sinus at this point. He has recovered from his acute cardiac arrest without any signs of acute hypoxic encephalopathy. [address] segment elevation inferior wall myocardial infarction, status post emergent cardiac catheterization and stenting of RCA 2 stents. 3 acute respiratory failure secondary to above, the patient was successfully extubated 4 suspected right basilar aspiration pneumonia currently on IV Zosyn. The sputum showed Serratia marcescens and the patient will be switched to oral Bactrim. 5 COPD 6 known history of coronary artery disease with previous OR in 2007 7 history of CVA with some residual left-sided weakness 8 congestion heart failure with segmental wall motion abnormalities and the patient has an ejection fraction of 25% 9 peripheral vascular disease with history of iliac stents 10 hyperlipidemia 11 hypertension 12 obstructive sleep apnea 13 chronic back pain 14 degenerative arthritis 15 possible nasal bone fracture and pansinusitis and the patient was started on IV Zosyn. No evidence of any cervical spine fracture and there is mild spondylosis at the level of C5-C6 16 carotid artery stenosis Plan Give the patient does of Lasix 40 mg IV push. Will discontinue the IV Zosyn and put the patient on oral Bactrim double strength 1 tablet twice a day. Incentive spirometer. DuoNeb nebulized treatments around the clock. Continue amiodarone and metoprolol in addition to aspirin and Plavix and high-dose statins. The patient can be moved out of the intensive care unit. Decision for a AICD placement will be left to cardiology at a later stage.
--- NOTE | 2017-08-27 18:06 | P.PN ---
Subjective Progress Note Date: 08/27/17 Principal diagnosis: Altered mental status Patient is a 57-year-old male being followed by neurology for altered mental status. Patient was brought to emergency room after cardiac arrest at home. Patient was resuscitated after downtime approximate 5-10 minutes. She was found to be in ventricular fibrillation and immediately shocked indifferently related by EMS. Patient return to normal heart rhythm. Patient did have heart catheterization on arrival at the hospital and was found to have extensive cardiac disease and 2 stents were placed. Patient was admitted to the ICU and was on mechanical ventilation previous. Patient does have an extensive history of previous cardiac disease. He also has previous history of myocardial infarction. Patient does have a history of stroke with residual left hemiparesis. On contact today, the patient was observed resting in a bedside chair with family present. Patient was alert and oriented 3. Patient was interactive and communicative. Patient does admit to having difficulty with short-term memory as well as multitasking. Objective - Vital Signs Vital signs: Vital Signs Temp 98.4 F 08/27/17 15:00 Pulse 100 08/27/17 17:15 Resp 18 08/27/17 15:00 BP 92/65 08/27/17 15:00 Pulse Ox 98 08/27/17 15:00 Intake & Output 08/26/17 08/27/17 08/27/17 18:59 06:59 18:59 Intake Total 0924.486 2941.5 425 Output Total 3575 1980 1145 Balance -2480.487 -942.5 -720 Weight 95.9 kg 89.3 kg Intake: IV 950 937.5 425 Piperacillin-Tazobactam 3 50 37.5 50 .375 gm In Dextrose/Water 1 50ml.bag @ 12.5 mls/hr IVPB Q8HR [facility] Rx#: [id number] Sodium Chloride 0.9% 1, 900 900 375 000 ml @ 75 mls/hr IV . [id number] [facility] Rx#:[id number] Intake, IV Titration 84.513 100 Amount IV Fluid Continuation 1, 100 000 ml As IV [facility] Rx#:[id number] Piperacillin-Tazobactam 3 37.5 .375 gm In Dextrose/Water 1 50ml.bag @ 12.5 mls/hr IVPB Q8HR [facility] Rx#: [id number] Propofol 1,000 mg In 47.013 Empty Bag 1 bag @ Titrate IV .Q0M [facility] Rx#: [id number] Other 60 Output: Urine 3575 1980 1145 Other: Voiding Method Indwelling Catheter Indwelling Catheter Indwelling Catheter ABP, PAP, CO, CI - Last Documented Arterial Blood Pressure 153/86 - Exam Gen. appearance: Alert, in no apparent distress Head: Atraumatic normocephalic, normal inspection Eyes: Well appearance, PERRL, EOMI. absent: Scleral icterus, conjunctival injection, nystagmus, periorbital swelling. Ear nose and throat: Normal exam, mucous membranes moist Neck: Normal inspection. Absent tenderness, lymphadenopathy Respiratory: No increased work of breathing. Cardiovascular: Regular rate, normal rhythm, normal heart sounds. Absent systolic murmur, diastolic murmur, rubs, gallops, clicks GIabdominal: Normal bowel sounds, non distended, no tenderness, no guarding, no rebound, no rigidity. Extremities: All range of motion, normal capillary refill, no tenderness, pedal edema, joint swelling, calf tenderness Neurological: Alert and oriented 3, cranial nerves II through XII intact, known , left residual unilateral lateralizing weakness, no seizure activity noted on physical exam, no pronator drift and no nystagmus. Psychological: Mood and affect appropriate setting, observed to have difficulty with short-term memory, some recall and multitasking. - Labs CBC & Chem 7: 08/27/17 04:11 08/27/17 04:11 Labs: Abnormal Lab Results - Last 24 Hours (Table) 08/26/17 08/26/17 08/27/17 Range/Units 18:27 23:57 04:11 WBC 13.3 H (3.8-10.6) k/uL Plt Count 143 L (150-450) k/uL Neutrophils # 10.1 H (1.3-7.7) k/uL Glucose (74-99) mg/dL POC Glucose (mg/dL) 132 H 104 H (75-99) mg/dL Phosphorus (2.5-4.5) mg/dL 08/27/17 08/27/17 Range/Units 04:11 06:01 WBC (3.8-10.6) k/uL Plt Count (150-450) k/uL Neutrophils # (1.3-7.7) k/uL Glucose 105 H (74-99) mg/dL POC Glucose (mg/dL) 103 H (75-99) mg/dL Phosphorus 2.4 L (2.5-4.5) mg/dL Microbiology - Last 24 Hours (Table) 08/25/17 02:11 Gram Stain - Final Sputum Sputum Culture - Final Serratia marcescens 08/25/17 19:00 Urine Culture - Final Urine,Catheterized 08/25/17 17:09 Blood Culture - Preliminary Blood No Growth after 24 hours Assessment and Plan (1) Altered mental status Current Visit: Yes Status: Acute Code(s): R41.82 - ALTERED MENTAL STATUS, UNSPECIFIED SNOMED Code(s): 135211256 (2) History of cardiac arrest Current Visit: Yes Status: Acute Code(s): Z86.74 - PERSONAL HISTORY OF SUDDEN CARDIAC ARREST SNOMED Code(s): 794675411 (3) Hypoxic brain injury Current Visit: Yes Status: Acute Code(s): G93.1 - ANOXIC BRAIN DAMAGE, NOT ELSEWHERE CLASSIFIED SNOMED Code(s): 292171289 (4) PAD (peripheral artery disease) Current Visit: No Status: Acute Code(s): I73.9 - PERIPHERAL VASCULAR DISEASE , UNSPECIFIED SNOMED Code(s): 517005688 Plan: The patient is known to have experienced cardiac arrest with likely hypoxic brain injury. The patient has made significant progress in the last 24 hours. His expressive aphasia has declined significantly and his largely remaining deficits involve memory, multitasking. Patient does appear to have some symptoms consistent with pseudobulbar affect. Patient is able to move all extremities, interact with provider and family members and follows all commands without demonstration or prompting. Recommend speech consult, PT consult and OT consult. Continue neurological checks as ordered. Notify neurology with any neurological status changes. Neurology will continue to follow and may consider repeat CT of the brain on 08/28/2017. Continue aspirin, Plavix , Lipitor as previously implemented. Status: Neurology will continue to follow and provide updates as needed or warranted. Pardeep Hernandez, [employer]-[employer] Neurology For Dr Farhana Moore MD I discussed the patients history, physical exam, diagnostic testing, lab work and imaging with Dr Moore prior to implementing the plan above. He agrees with the plan as implemented prior to implementation.
[2017-08-27] MEDS: ATORVASTATIN 80 MG TAB PO SCH (21:05)
--- NOTE | 2017-08-27 22:21 | PN ---
PROGRESS NOTE DATE OF SERVICE: 08/27/2017 This 57-year-old gentleman admitted with FK-lzxuynu-[id number] myocardial infarction also had a cardiac catheterization. The patient is extubated. The patient's response rate has improved significantly. Repeat CT scan did not show an acute abnormality. No chest pain. No palpitations. No fever. On examination, alert and oriented x3. Pulse is 103, blood pressure 92/64, respiration 18, temperature 98.4, pulse ox 98% on room air. HEENT: Conjunctivae normal. Oral mucosa moist. NECK: No jugular venous distention. No carotid bruit. No lymph node enlargement. CARDIOVASCULAR SYSTEM: S1, S2 muffled. RESPIRATORY SYSTEM: Breath sounds diminished at the bases. A few rhonchi. No crackles. ABDOMEN: Soft, nontender. LEGS: No edema. No swelling. NERVOUS SYSTEM: No focal deficit. LABS: WBC 13.3. UA noted. ASSESSMENT: 1. Cardiac arrest, possibly primary ventricular fibrillation or possibly acute ST- segment-elevation inferior wall myocardial infarction, status post cardiac catheterization and stenting of the totally occluded right coronary artery in a long segment with reduction from 100% to 0%. 2. History of coronary artery disease with myocardial infarction. 3. History of peripheral vascular disease. 4. Continue and ongoing nicotine dependence. 5. History of cerebrovascular accident, transient ischemic attack. 6. Chronic obstructive pulmonary disease. 7. Gastroesophageal reflux disease. 8. Hypertension. 9. Hyperlipidemia. 10.History of change in mental status, metabolic encephalopathy, acute. 11.History of myocardial infarction. 12.History of cerebrovascular accident. 13.History of cardiac catheterization. 14.History of spinal cord stimulator. 15.FULL CODE. RECOMMENDATIONS AND DISCUSSION: I recommend to continue current medication, continue symptomatic treatment. Otherwise, increase ambulation. Continue with the beta blockers and Ecotrin and other medications. Guarded prognosis because of multiple complex medical issues. Further recommendations to follow. MMODL / IJN: [id number] /
[2017-08-28 06:15] LABS: Basophils # (A) 0.1 k/uL (0-0.2); Basophils % (A) 1 %; Eosinophils # (A) 0.1 k/uL (0-0.7); Eosinophils % (A) 1 %; HCT 50.2 % (39.0-53.0); Lymphocytes # (A) 2.3 k/uL (1.0-4.8); Lymphocytes % (A) 21 %; MCH 31.1 pg (25.0-35.0); MCHC 33.9 g/dL (31.0-37.0); MCV 91.7 fL (80.0-100.0); Mean Platelet Volume 7.7; Monocytes # (A) 0.7 k/uL (0-1.0); Monocytes % (A) 6 %; Neutrophils % (A) 70 %; Platelet Count 153 k/uL (150-450); RBC 5.48 m/uL (4.30-5.90); RDW 14.1 % (11.5-15.5); WBC 11.4 k/uL (3.8-10.6)
[2017-08-28 06:41] LABS: Anion Gap 13 mmol/L; Blood Urea Nitrogen 18 mg/dL (9-20); Calcium 9.5 mg/dL (8.4-10.2); Carbon Dioxide 25 mmol/L (22-30); Chloride 98 mmol/L (98-107); Glucose 105 mg/dL (74-99); Phosphorus 4.2 mg/dL (2.5-4.5); Potassium 3.8 mmol/L (3.5-5.1); Sodium 136 mmol/L (137-145)
[2017-08-28] MEDS: SULFAMETHOX-TMP 800-160MG 1 EACH TAB PO SCH ×2 (07:51→21:08)
[2017-08-28] MEDS: AMIODARONE 200 MG TAB PO SCH ×2 (07:52→21:08)
[2017-08-28] MEDS: METOPROLOL TARTRATE 25 MG TAB PO SCH ×2 (07:52→21:08)
[2017-08-28] MEDS: CLOPIDOGREL 75 MG TAB PO SCH (07:52)
[2017-08-28] MEDS: SPIRONOLACTONE 25 MG TAB PO SCH (07:52)
[2017-08-28] MEDS: HEPARIN SODIUM,PORCINE 5,000 UNIT/ML 1 ML VIAL SQ SCH ×3 (07:52→23:17)
[2017-08-28] MEDS: LISINOPRIL 5 MG TAB PO SCH (07:53)
[2017-08-28] MEDS: ASPIRIN 81 MG PO SCH (07:53)
[2017-08-28] MEDS: IPRATROPIUM-ALBUTEROL 3 ML NEB INHALATION SCH ×4 (08:27→19:59)
[2017-08-28] MEDS ORDERED: ACETAMINOPHEN TAB 325 MG TAB PO PRN (09:17)
[2017-08-28 11:49] VITALS: BMI 27.2
--- NOTE | 2017-08-28 13:30 | P.PN ---
<SalvadorAniyah - Last Filed: 08/28/17 13:25> Subjective Progress Note Date: 08/28/17 Principal diagnosis: Cardiac arrest A 57-year-old male patient who came in to the hospital with an acute cardiac arrest. The patient was found to be unresponsive by his . Apparently the patient had gone to bed around 10 PM. The heard and no complications and upon check in on her , she found him laying face down on the floor. EMS was called to the scene and the patient was initially found to be in ventricular fibrillation and he was immediately shocked and defibrillated and the patient had return of spontaneous circulation. The patient also began having spontaneous breathing. EMS put him on 100% nonrebreather and the patient got moved to the emergency department. The exact downtime is not clear although this is estimated to be around 5 minutes at least. The patient came in to the emergency department and the patient was found to have acute ST segment elevation myocardial infarction involving the inferior leads with reciprocal changes laterally. Acute myocardial infarction was suspected. The patient was immediately taken to the [facility] and the patient underwent a cardiac catheterization he was found to have 100% occlusion of the RCA and the patient underwent angioplasty and stenting of the RCA. Following that, the patient was moved to the intensive care unit intubated on a mechanical ventilator. This morning, the patient is on 10 mics of the Diprivan and is calm and comfortable. He is hemodynamically stable on no pressors. He is producing adequate amount of urine output. Overnight he was placed on IV fluids with normal saline at the rate of 75 mL an hour. His chest x-ray from today shows perihilar and upper lobe infiltrates that have increased compared to yesterday and I suspect this is related to pulmonary vessel congestion. I also suspect that the patient could've aspirated knowing that the pulmonary infiltration on the right especially in the right upper lung area is worse compared to the left. The patient also having some respiratory secretions being suctioned from the orotracheal tube that are rather thick and purulent. ET tube is in a good location. NG tube is also in the stomach. Echocardiogram was done this morning and the results are still pending for now. Meanwhile, the patient's troponins were minimally elevated at 0.03 initially and subsequently up to 0.5. The patient's creatinine today is at 1.2. His blood gases from this morning showed a pH of 7.35 with a pCO2 of 45 and pO2 of 246 and this was done on assist control mode at the rate of 14, tidal volume 550, FiO2 of 100% and a PEEP of 5. Based on his blood gases, the patient's FiO2 was dropped down to 50% . The patient is known to have coronary artery disease and the patient has been involved in a myocardial infarction back in 2007. The patient also has had previous CVA and left-sided weakness and previous history of carotid artery stenosis. He is also known to have peripheral vascular disease with iliac stents. On 08/26 2017 I'm seeing this patient for a follow-up. As mentioned earlier the patient recovered from acute cardiac arrest. He had ventricular fibrillation. Cardiac catheterization and stenting of the RCA. He was given amiodarone loading and currently is on amiodarone maintenance. His cardiac rhythm remains sinus. This morning the patient was sedated Diprivan is was calm and comfortable. He was assist control mode of ventilation. He was on a rate of 14 with a tidal volume of 550 FiO2 of 40% and a PEEP of 5. The blood gases from this morning showed a pH of 7.42 with a pCO2 of 40 and pO2 of 89. Patient was on no pressors. The patient was afebrile. Chest x-ray from today showed no acute abnormalities and EGD was in a good location. The patient had some perihilar pulmonary infiltrate and small left-sided pleural effusion. The sputum was sent for cultures and the patient was found to have gram-negative bacillus and the patient is currently on IV Zosyn. The patient is being covered for an aspiration pneumonia. Meanwhile, the renal function remains stable and echocardiogram was done that showed impairment in the LV function with an ejection fraction of 25-30% and basilar inferior segmental wall motion abnormalities, septal hypokinesis, anterolateral hypokinesis and a PA pressure that is not elevated. Based on all this, the patient was given a sedation holiday and after approximately 45 minutes of coming off Diprivan the patient was found to open his eyes spontaneously and follows some simple commands. At that point he was given a spelled his breathing trial knowing that his weaning parameters do not to be satisfactory. Within 45 minutes a blood gases were obtained and the numbers were satisfactory and based on the fact that the patient was able to give a decent cough, the patient was extubated to a nasal cannula. He tolerated extubation well without any post exhibition stridor or respiratory distress. Hemodynamically remained also stable. We have noted that the patient has some issues with his personality knowing that he did not show any emotion and he had a flat affect. This may be related to a component of hypoxic encephalopathy post cardiac arrest. Nevertheless he was moving all 4 extremities more so in the upper extremities compared to lower extremities. On I'm seeing the patient in follow-up. The patient was extubated yesterday without any major difficulties. This morning he is wide awake and communicating. He is able to move all 4 extremities without any limitation. No headaches. No change in mental status. Cardiac rhythm is sinus. No cardiac arrhythmias have been noted. The patient is afebrile hemodynamically stable. No angina. Chest x-ray shows some limited bibasilar pulmonary infiltrates. The sputum analysis showing Serratia marcescens that was resistant to Zosyn. and the patient is afebrile and his white cell count is at 13.3. The patient is currently on room air oxygen pulse 6 setting at around 94% . The patient is seen again today 08/28/2017 in follow-up on the selective care unit. He is awake and alert in no acute distress. He is maintaining O2 saturations in the 90s on room air. Sputum was positive for Serratia marcescens. He is currently on Bactrim. We count 11.4. Hemoglobin 17.0. He has been afebrile. Hemodynamically stable. He denies any significant chest discomfort, palpitations lightheadedness or dizziness. He is alert and oriented 3 but does have some expressive aphasia intermittently. Objective - Vital Signs Vital signs: Vital Signs Temp 97.6 F 08/28/17 08:00 Pulse 77 08/28/17 11:46 Resp 16 08/28/17 11:46 BP 115/71 08/28/17 09:11 Pulse Ox 93 L 08/28/17 09:11 Intake & Output 08/27/17 08/28/17 08/28/17 18:59 06:59 18:59 Intake Total 425 340 Output Total 1145 240 0 Balance -720 -240 340 Weight 86.1 kg 86.1 kg Intake: IV 425 Piperacillin-Tazobactam 3 50 .375 gm In Dextrose/Water 1 50ml.bag @ 12.5 mls/hr IVPB Q8HR [facility] Rx#: [id number] Sodium Chloride 0.9% 1, 375 000 ml @ 20 mls/hr IV . Q24H [facility] Rx#:[id number] Oral 340 Output: Urine 1145 240 0 Other: Voiding Method Indwelling Catheter Urinal Urinal # Voids 1 ABP, PAP, CO, CI - Last Documented Arterial Blood Pressure 153/86 - Exam GENERAL EXAM: Alert, active, comfortable in no apparent distress. HEAD: Normocephalic. EYES: Normal reaction of pupils, equal size. NOSE: Clear with pink turbinates. THROAT: No erythema or exudates. NECK: No masses, no JVD. CHEST: No chest wall deformity. LUNGS: Equal air entry with no crackles, wheeze, rhonchi or dullness. CVS: S1 and S2 normal with no audible murmur, regular rhythm. ABDOMEN: No hepatosplenomegaly, normal bowel sounds, no guarding or rigidity. SPINE: No scoliosis or deformity SKIN: No rashes CENTRAL NERVOUS SYSTEM: No focal deficits, tone is normal in all 4 extremities. EXTREMITIES: There is no peripheral edema. No clubbing, no cyanosis. Peripheral pulses are intact. - Labs CBC & Chem 7: 08/28/17 05:42 08/28/17 05:42 Labs: Abnormal Lab Results - Last 24 Hours (Table) 08/28/17 08/28/17 Range/Units 05:42 05:42 WBC 11.4 H (3.8-10.6) k/uL Neutrophils # 8.0 H (1.3-7.7) k/uL Sodium 136 L (137-145) mmol/L Glucose 105 H (74-99) mg/dL Microbiology - Last 24 Hours (Table) 08/25/17 17:09 Blood Culture - Preliminary Blood No Growth after 48 hours 08/25/17 02:11 Gram Stain - Final Sputum Sputum Culture - Final Serratia marcescens Assessment and Plan Assessment: Assessment 1 acute cardiac arrest/ventricle fibrillation, status post successful defibrillation and resuscitation with a downtime estimated to be around 5-10 minutes. The patient was successfully resuscitated. The patient is currently on oral amiodarone and beta blockers. The patient is not having any further arrhythmia and his cardiac rhythm is sinus at this point. He has recovered from his acute cardiac arrest without any signs of significant acute hypoxic encephalopathy. [address] segment elevation inferior wall myocardial infarction, status post emergent cardiac catheterization and stenting of RCA 2 stents. 3 acute respiratory failure secondary to above, the patient was successfully extubated 4 suspected right basilar aspiration pneumonia currently on IV Zosyn. The sputum showed Serratia marcescens and the patient will be switched to oral Bactrim. 5 COPD 6 known history of coronary artery disease with previous ND in 2007 7 history of CVA with some residual left-sided weakness 8 congestion heart failure with segmental wall motion abnormalities and the patient has an ejection fraction of 25% 9 peripheral vascular disease with history of iliac stents 10 hyperlipidemia 11 hypertension 12 obstructive sleep apnea 13 chronic back pain 14 degenerative arthritis 15 possible nasal bone fracture and pansinusitis and the patient was started on IV Zosyn. No evidence of any cervical spine fracture and there is mild spondylosis at the level of C5-C6 16 carotid artery stenosis Plan The patient was seen and evaluated by Dr. Mcrae. The patient is improved today as compared to yesterday. He is currently stable from the pulmonary and critical care standpoint. He'll complete his course of Bactrim. We'll see the patient on as-needed basis. I, the cosigning physician, performed a history & physical examination of the patient. Lungs sounds are clear. Maintaining good O2 saturations in the 90s on room air. I discussed the assessment and plan of care with my nurse practitioner, Aniyah Franco. I attest to the above note as dictated by her. <Washington Mcrae - Last Filed: 08/28/17 15:54> Objective - Vital Signs Vital signs: Vital Signs Temp 97.6 F 08/28/17 08:00 Pulse 77 08/28/17 11:46 Resp 16 08/28/17 11:46 BP 115/71 08/28/17 09:11 Pulse Ox 93 L 08/28/17 09:11 Intake & Output 08/27/17 08/28/17 08/28/17 18:59 06:59 18:59 Intake Total 425 340 Output Total 1145 240 0 Balance -720 -240 340 Weight 86.1 kg 86.1 kg Intake: IV 425 Piperacillin-Tazobactam 3 50 .375 gm In Dextrose/Water 1 50ml.bag @ 12.5 mls/hr IVPB Q8HR [facility] Rx#: [id number] Sodium Chloride 0.9% 1, 375 000 ml @ 20 mls/hr IV . Q24H [facility] Rx#:[id number] Oral 340 Output: Urine 1145 240 0 Other: Voiding Method Indwelling Catheter Urinal Urinal # Voids 1 ABP, PAP, CO, CI - Last Documented Arterial Blood Pressure 153/86 - Labs CBC & Chem 7: 08/28/17 05:42 08/28/17 05:42 Labs: Abnormal Lab Results - Last 24 Hours (Table) 08/28/17 08/28/17 08/28/17 Range/Units 05:42 05:42 05:42 WBC 11.4 H (3.8-10.6) k/uL Neutrophils # 8.0 H (1.3-7.7) k/uL Sodium 136 L (137-145) mmol/L Glucose 105 H (74-99) mg/dL Total Bilirubin 2.1 H (0.2-1.3) mg/dL Unconjugated Bilirubin 1.3 H (0.0-1.1) mg/dL Delta Bilirubin 0.8 H (0.0-0.2) mg/dL Microbiology - Last 24 Hours (Table) 08/25/17 17:09 Blood Culture - Preliminary Blood No Growth after 48 hours 08/25/17 02:11 Gram Stain - Final Sputum Sputum Culture - Final Serratia marcescens Assessment and Plan Assessment: A joint evaluation that was done along with a nurse practitioner. The patient is doing extremely well. Continue antibiotic coverage for possible aspiration pneumonia. The patient has Serratia marcescens in the sputum and currently is on Bactrim.
--- NOTE | 2017-08-28 14:41 | P.PN ---
Subjective Progress Note Date: 08/28/17 This is a pleasant 57-year-old gentleman with history of PVD and coronary artery disease who presented with sudden cardiac arrest and ventricular fibrillation. Underwent cardiac catheterization was found to have totally occluded RCA and ectopic left circumflex subsequently he underwent successful stenting of the totally occluded RCA. Echocardiogram showed an ejection fraction of 25-30%. He Will be scheduled to undergo AICD placement by Dr. Novak soon. On examination, patient is resting comfortably in bed. He complains of some torn S waited to skilled skeletal discomfort. Objective - Vital Signs Vital signs: Vital Signs Temp 97.6 F 08/28/17 08:00 Pulse 77 08/28/17 11:46 Resp 16 08/28/17 11:46 BP 115/71 08/28/17 09:11 Pulse Ox 93 L 08/28/17 09:11 Intake & Output 08/27/17 08/28/17 08/28/17 18:59 06:59 18:59 Intake Total 425 340 Output Total 1145 240 0 Balance -720 -240 340 Weight 86.1 kg 86.1 kg Intake: IV 425 Piperacillin-Tazobactam 3 50 .375 gm In Dextrose/Water 1 50ml.bag @ 12.5 mls/hr IVPB Q8HR [facility] Rx#: [id number] Sodium Chloride 0.9% 1, 375 000 ml @ 20 mls/hr IV . Q24H [facility] Rx#:[id number] Oral 340 Output: Urine 1145 240 0 Other: Voiding Method Indwelling Catheter Urinal Urinal # Voids 1 ABP, PAP, CO, CI - Last Documented Arterial Blood Pressure 153/86 - Exam PHYSICAL EXAMINATION: HEENT: Head is atraumatic, normocephalic. Pupils equal, round. Neck is supple. There is no elevated jugular venous pressure. HEART EXAMINATION: Heart sounds regular, S1 and S2 normal. No murmur or gallop heard. CHEST EXAMINATION: Lungs are clear to auscultation and precussion. No chest wall tenderness is noted on palpation or with deep breathing. ABDOMEN: Soft, nontender. Bowel sounds are heard. No organomegaly noted. EXTREMITIES: 2+ peripheral pulses with no evidence of peripheral edema and no calf tenderness noted. NEUROLOGIC patient is awake, alert and oriented x3. . - Labs CBC & Chem 7: 08/28/17 05:42 08/28/17 05:42 Labs: Abnormal Lab Results - Last 24 Hours (Table) 08/28/17 08/28/17 Range/Units 05:42 05:42 WBC 11.4 H (3.8-10.6) k/uL Neutrophils # 8.0 H (1.3-7.7) k/uL Sodium 136 L (137-145) mmol/L Glucose 105 H (74-99) mg/dL Microbiology - Last 24 Hours (Table) 08/25/17 17:09 Blood Culture - Preliminary Blood No Growth after 48 hours 08/25/17 02:11 Gram Stain - Final Sputum Sputum Culture - Final Serratia marcescens Assessment and Plan Assessment: #1 status post cardiac arrest #2 ischemic cardiomyopathy 3 ventricular tachycardia and V. fib Plan: Cardiology's perspective, medications were reviewed and will continue the same. Patient will likely undergo ICD placement seen by Dr. Novak. BEEHIVE KILN [facility]COAL [facility]NER note has been reviewed, I agree with a documented findings and plan of care. Patient was seen and examined.
[2017-08-28 15:03] LABS: Albumin 3.6 g/dL (3.5-5.0); Bilirubin, Delta 0.8 mg/dL (0.0-0.2); Bilirubin,Unconjugated 1.3 mg/dL (0.0-1.1); Total Bilirubin 2.1 mg/dL (0.2-1.3); Total Protein 6.4 g/dL (6.3-8.2)
--- NOTE | 2017-08-28 17:35 | P.PN ---
Subjective Progress Note Date: 08/28/17 Progress note being dictated for Dr. Hernandez. Interval history: Is a 57-year-old gentleman admitted status post cardiac arrest , V. fib, acute STEMI, status post cardiac cath with stenting, right aspiration pneumonia and multiple other medical issues. Significant clinical improvement. Transferred out of ICU and currently on telemetry unit. Maintained on aspirin, beta jolene, Bactrim for Serratia marcescens in sputum. Echo reporting EF of 25-30% ,Cardiology discussing AICD placement with patient and family. T bili 2.1. Denies chest pain, palpitations or shortness of breath. Denies any lightheadedness dizziness or focal deficits. Family reports patient's memory worse than baseline. Afebrile. Objective - Vital Signs Vital signs: Vital Signs Temp 97.1 F L 08/28/17 16:00 Pulse 83 08/28/17 16:36 Resp 16 08/28/17 16:36 BP 109/80 08/28/17 16:00 Pulse Ox 93 L 08/28/17 16:26 Intake & Output 08/27/17 08/28/17 08/28/17 18:59 06:59 18:59 Intake Total 425 340 Output Total 1145 240 300 Balance -720 -240 40 Weight 86.1 kg 86.1 kg Intake: IV 425 Piperacillin-Tazobactam 3 50 .375 gm In Dextrose/Water 1 50ml.bag @ 12.5 mls/hr IVPB Q8HR RANDI Rx#: [id number] Sodium Chloride 0.9% 1, 375 000 ml @ 20 mls/hr IV . Q24H RANDI Rx#:[id number] Oral 340 Output: Urine 1145 240 300 Other: Voiding Method Indwelling Catheter Urinal Urinal # Voids 1 2 ABP, PAP, CO, CI - Last Documented Arterial Blood Pressure 153/86 - Exam PHYSICAL EXAM: VITAL SIGNS: As above GENERAL: Sitting up in bed, no acute distress HEENT: Conjunctivae normal. eyes normal. Oral mucosa moist NECK: No JVD. No thyroid enlargement. No LNs CARDIOVASCULAR: S1, S2 muffled. No murmur RESPIRATION: Breath sounds diminished in the bases. No rhonchi or crackles. ABDOMEN: Soft, nontender . No guarding. no masses palpable. No ascites,Bowel sounds heard. LEGS: No edema. no swelling PSYCHIATRY: Alert and oriented -3, mood and affect normal. NERVOUS SYSTEM: Cranial N 2-12 grossly normal. Moves all 4 limbs. Diffuse weakness No focal deficits. Skin: no ulcer no rash Joints: No active swelling. No inflammation. Lymphatic system. No LN neck axilla or groin. - Labs CBC & Chem 7: 08/28/17 05:42 08/28/17 05:42 Labs: Abnormal Lab Results - Last 24 Hours (Table) 08/28/17 08/28/17 08/28/17 Range/Units 05:42 05:42 05:42 WBC 11.4 H (3.8-10.6) k/uL Neutrophils # 8.0 H (1.3-7.7) k/uL Sodium 136 L (137-145) mmol/L Glucose 105 H (74-99) mg/dL Total Bilirubin 2.1 H (0.2-1.3) mg/dL Unconjugated Bilirubin 1.3 H (0.0-1.1) mg/dL Delta Bilirubin 0.8 H (0.0-0.2) mg/dL Microbiology - Last 24 Hours (Table) 08/25/17 17:09 Blood Culture - Preliminary Blood No Growth after 48 hours Assessment and Plan Assessment: Cardiac arrest, possibly primary ventricular fibrillation, acute STEMI inferior wall RI, status post cardiac catheterization and stenting of the totally occluded right coronary artery in a long segment with reduction from 100% to 0% . Ischemic cardiomyopathy, EF 25%. 2. Acute Right-basilar aspiration pneumonia, Serratia marcescens-sputum culture, secondary to the above 3. Peripheral Vascular disease 4. Ongoing nicotine dependence 5. History of CVA, TIA 6. COPD 7. CAD with RI 8. Acute hypoxic respiratory failure secondary to #1, status post mechanical ventilation dependence. Plan: Continue on current medication regime ,monitoring and symptomatic treatment. Increase ambulation as tolerated. As mentioned above AICD placement being discussed. Aggressive pulmonary toileting. Smoking cessation readdressed. Further recommendations to follow. The impression and plan of care has been dictated as directed. : I performed a history and examination of this patient, discussed the same with the dictator. I agree with the dictator's note ,documented as a scribe. Any additional findings or plans will be noted.
--- NOTE | 2017-08-28 19:17 | P.PN ---
Subjective Progress Note Date: 08/28/17 Principal diagnosis: Altered mental status Interval Update (08/28/17) Patient was transferred from the ICU to the telemetry unit for further management. The patient was alert and oriented x 3, seated at the bedside with family present. Patient stated that he is continuing to physically improve however he has complaints of short-term memory and recall difficulties. He is also complaining of divided attention difficulty as well. Initial Information: Patient is a 57-year-old male being followed by neurology for altered mental status. Patient was brought to emergency room after cardiac arrest at home. Patient was resuscitated after downtime approximate 5-10 minutes. She was found to be in ventricular fibrillation and immediately shocked indifferently related by EMS. Patient return to normal heart rhythm. Patient did have heart catheterization on arrival at the hospital and was found to have extensive cardiac disease and 2 stents were placed. Patient was admitted to the ICU and was on mechanical ventilation previous. Patient does have an extensive history of previous cardiac disease. He also has previous history of myocardial infarction. Patient does have a history of stroke with residual left hemiparesis. On contact today, the patient was observed resting in a bedside chair with family present. Patient was alert and oriented 3. Patient was interactive and communicative. Patient does admit to having difficulty with short-term memory as well as multitasking. Objective - Vital Signs Vital signs: Vital Signs Temp 97.1 F L 08/28/17 16:00 Pulse 83 08/28/17 16:36 Resp 16 08/28/17 16:36 BP 109/80 08/28/17 16:00 Pulse Ox 93 L 08/28/17 16:26 Intake & Output 08/28/17 08/28/17 08/29/17 06:59 18:59 06:59 Intake Total 340 Output Total 240 300 Balance -240 40 Weight 86.1 kg 86.1 kg Intake: Oral 340 Output: Urine 240 300 Other: Voiding Method Urinal Urinal # Voids 1 2 ABP, PAP, CO, CI - Last Documented Arterial Blood Pressure 153/86 - Exam Gen. appearance: Alert, in no apparent distress Head: Atraumatic normocephalic, normal inspection Eyes: Well appearance, PERRL, EOMI. absent: Scleral icterus, conjunctival injection, nystagmus, periorbital swelling. Ear nose and throat: Normal exam, mucous membranes moist Neck: Normal inspection. Absent tenderness, lymphadenopathy Respiratory: No increased work of breathing. Cardiovascular: Regular rate, normal rhythm, normal heart sounds. Absent systolic murmur, diastolic murmur, rubs, gallops, clicks GIabdominal: Normal bowel sounds, non distended, no tenderness, no guarding, no rebound, no rigidity. Extremities: All range of motion, normal capillary refill, no tenderness, pedal edema, joint swelling, calf tenderness Neurological: Alert and oriented 3, cranial nerves II through XII intact, known , left residual unilateral lateralizing weakness, no seizure activity noted on physical exam, no pronator drift and no nystagmus. Psychological: Mood and affect appropriate setting, observed to have difficulty with short-term memory, some recall and multitasking. - Labs CBC & Chem 7: 08/28/17 05:42 08/28/17 05:42 Labs: Abnormal Lab Results - Last 24 Hours (Table) 08/28/17 08/28/17 08/28/17 Range/Units 05:42 05:42 05:42 WBC 11.4 H (3.8-10.6) k/uL Neutrophils # 8.0 H (1.3-7.7) k/uL Sodium 136 L (137-145) mmol/L Glucose 105 H (74-99) mg/dL Total Bilirubin 2.1 H (0.2-1.3) mg/dL Unconjugated Bilirubin 1.3 H (0.0-1.1) mg/dL Delta Bilirubin 0.8 H (0.0-0.2) mg/dL Microbiology - Last 24 Hours (Table) 08/25/17 17:09 Blood Culture - Preliminary Blood No Growth after 48 hours Assessment and Plan (1) Altered mental status Current Visit: Yes Status: Acute Code(s): R41.82 - ALTERED MENTAL STATUS, UNSPECIFIED SNOMED Code(s): 473144108 (2) History of cardiac arrest Current Visit: Yes Status: Acute Code(s): Z86.74 - PERSONAL HISTORY OF SUDDEN CARDIAC ARREST SNOMED Code(s): 356163749 (3) Hypoxic brain injury Current Visit: Yes Status: Acute Code(s): G93.1 - ANOXIC BRAIN DAMAGE, NOT ELSEWHERE CLASSIFIED SNOMED Code(s): 953562130 (4) PAD (peripheral artery disease) Current Visit: No Status: Acute Code(s): I73.9 - PERIPHERAL VASCULAR DISEASE , UNSPECIFIED SNOMED Code(s): 442701935 Plan: The patient is known to have experienced cardiac arrest with likely hypoxic brain injury. The patient has made significant progress in the last 48 hours. His expressive aphasia has declined significantly and his remaining deficits involve memory, multitasking, but is still improving. Patient does appear to have some symptoms consistent with pseudobulbar affect as well. Patient is able to move all extremities, interact with provider and family members and follows all commands without demonstration or prompting. Recommend speech consult, PT consult and OT consult. Continue aspirin, Plavix, Lipitor as previously implemented. Since the patient is still improving, we will not reimage the brain at this time. If he has any new symptoms or neurological complaints, please notify our office. Status: Neurology will follow on an as needed basis. Patient is cleared from a neurological standpoint for placement at a rehabilitation facility. Please notify the patient to follow up with our office within 10 business days. [facility] For Dr Farhana Moore MD I discussed the patients history, physical exam, diagnostic testing, lab work and imaging with Dr Moore prior to implementing the plan above. He agrees with the plan as implemented prior to implementation.
[2017-08-28] MEDS: ATORVASTATIN 80 MG TAB PO SCH (21:08)
[2017-08-29] MEDS: SODIUM CHLORIDE 0.9% 1,000 ML IV SCH (02:27)
[2017-08-29 06:31] LABS: Basophils # (A) 0.1 k/uL (0-0.2); Basophils % (A) 1 %; Eosinophils # (A) 0.3 k/uL (0-0.7); Eosinophils % (A) 3 %; HCT 50.6 % (39.0-53.0); Lymphocytes # (A) 2.3 k/uL (1.0-4.8); Lymphocytes % (A) 22 %; MCH 30.6 pg (25.0-35.0); MCHC 33.6 g/dL (31.0-37.0); MCV 91.3 fL (80.0-100.0); Mean Platelet Volume 7.8; Monocytes # (A) 0.6 k/uL (0-1.0); Monocytes % (A) 6 %; Neutrophils # (A) 6.8 k/uL (1.3-7.7); Neutrophils % (A) 65 %; Platelet Count 197 k/uL (150-450); RBC 5.55 m/uL (4.30-5.90); RDW 14.3 % (11.5-15.5); WBC 10.4 k/uL (3.8-10.6)
[2017-08-29 07:09] LABS: Anion Gap 14 mmol/L; Blood Urea Nitrogen 23 mg/dL (9-20); Calcium 9.6 mg/dL (8.4-10.2); Carbon Dioxide 24 mmol/L (22-30); Chloride 99 mmol/L (98-107); Glucose 101 mg/dL (74-99); Potassium 4.6 mmol/L (3.5-5.1); Sodium 137 mmol/L (137-145)
[2017-08-29] MEDS: IPRATROPIUM-ALBUTEROL 3 ML NEB INHALATION SCH ×4 (08:13→19:35)
[2017-08-29] MEDS: HEPARIN SODIUM,PORCINE 5,000 UNIT/ML 1 ML VIAL SQ SCH ×3 (08:33→23:00)
[2017-08-29] MEDS: AMIODARONE 200 MG TAB PO SCH ×3 (08:33→20:27)
[2017-08-29] MEDS: SPIRONOLACTONE 25 MG TAB PO SCH (08:34)
[2017-08-29] MEDS: LISINOPRIL 5 MG TAB PO SCH (08:34)
[2017-08-29] MEDS: ASPIRIN 81 MG PO SCH (08:34)
[2017-08-29] MEDS: METOPROLOL TARTRATE 25 MG TAB PO SCH ×2 (08:34→20:27)
[2017-08-29] MEDS: CLOPIDOGREL 75 MG TAB PO SCH (08:34)
[2017-08-29] MEDS: SULFAMETHOX-TMP 800-160MG 1 EACH TAB PO SCH (08:35)
--- NOTE | 2017-08-29 12:39 | P.PN ---
Subjective 57-year-old gentleman admitted status post cardiac arrest, V. fib, acute STEMI, status post cardiac cath with stenting, right aspiration pneumonia and multiple other medical issues. Significant clinical improvement. Transferred out of ICU and currently on telemetry unit. Maintained on aspirin, beta jolene, Bactrim for Serratia marcescens in sputum. Echo reporting EF of 25-30% ,Cardiology discussing AICD placement with patient and family. T bili 2.1. Denies chest pain, palpitations or shortness of breath. Denies any lightheadedness dizziness or focal deficits. Family reports patient's memory worse than baseline. Afebrile. 08/29/2017 Patient's renal function is worsening because of which Bactrim will be discontinued patient has separation the sputum Serratia has a property of inducible beta lactamase but fourth-generation cephalosporins can be used because of which patient will be started on cefepime and Serratia is sensitive to cefepime. Patient will not be started on any fluoroquinolones because of his history of V. fib. Patient is awaiting AICD placement on Thursday. REVIEW OF SYSTEMS: CONSTITUTIONAL: No fever, no malaise, no fatigue. HEENT: No recent visual problems or hearing problems. Denied any sore throat. CARDIOVASCULAR: No chest pain, orthopnea, PND, no palpitations, no syncope. PULMONARY: No shortness of breath, no cough, no hemoptysis. GASTROINTESTINAL: No diarrhea, no nausea, no vomiting, no abdominal pain. Normoactive bowel sounds. NEUROLOGICAL: No headaches, no weakness, no numbness. HEMATOLOGICAL: Denies any bleeding or petechiae. GENITOURINARY: Denies any burning micturition, frequency, or urgency. MUSCULOSKELETAL/RHEUMATOLOGICAL: Denies any joint pain, swelling, or any muscle pain. ENDOCRINE: Denies any polyuria or polydipsia. The rest of the 14-point review of systems is negative. Objective - Vital Signs Vital signs: Vital Signs Temp 98.3 F 08/29/17 11:56 Pulse 104 H 08/29/17 11:56 Resp 16 08/29/17 11:56 BP 123/83 08/29/17 11:56 Pulse Ox 94 L 08/29/17 11:56 Intake & Output 08/28/17 08/29/17 08/29/17 18:59 06:59 18:59 Intake Total 340 360 180 Output Total 300 350 Balance 40 10 180 Weight 86.1 kg 86.6 kg Intake: Oral 340 360 180 Output: Urine 300 350 Other: Voiding Method Urinal Urinal Urinal # Voids 2 2 1 # Bowel Movements 1 ABP, PAP, CO, CI - Last Documented Arterial Blood Pressure 153/86 - Exam PHYSICAL EXAMINATION: GENERAL: The patient is alert and oriented x3, not in any acute distress. Well developed, well nourished. HEENT: Pupils are round and equally reacting to light. EOMI. No scleral icterus. No conjunctival pallor. Normocephalic, atraumatic. No pharyngeal erythema. No thyromegaly. CARDIOVASCULAR: S1 and S2 present. No murmurs, rubs, or gallops. PULMONARY: Chest is clear to auscultation, no wheezing or crackles. ABDOMEN: Soft, nontender, nondistended, normoactive bowel sounds. No palpable organomegaly. MUSCULOSKELETAL: No joint swelling or deformity. EXTREMITIES: No cyanosis, clubbing, or pedal edema. NEUROLOGICAL: Gross neurological examination did not reveal any focal deficits. SKIN: No rashes. - Labs CBC & Chem 7: 08/29/17 05:52 08/29/17 05:52 Labs: Abnormal Lab Results - Last 24 Hours (Table) 08/28/17 08/29/17 Range/Units 05:42 05:52 BUN 23 H (9-20) mg/dL Glucose 101 H (74-99) mg/dL Total Bilirubin 2.1 H (0.2-1.3) mg/dL Unconjugated Bilirubin 1.3 H (0.0-1.1) mg/dL Delta Bilirubin 0.8 H (0.0-0.2) mg/dL Microbiology - Last 24 Hours (Table) 08/25/17 17:09 Blood Culture - Preliminary Blood No Growth after 72 hours Assessment and Plan Plan: Cardiac arrest, ry ventricular fibrillation, acute STEMI inferior wall [place], status post cardiac catheterization and stenting of the totally occluded right coronary artery in a long segment with reduction from 100% to 0%. Ischemic cardiomyopathy, EF 25%. Patient is awaiting AICD placement on Thursday 2. Acute Right-basilar aspiration pneumonia, Serratia marcescens-sputum culture, patient and medics was switched to cefepime because of above-mentioned reasons 3. Peripheral Vascular disease 4. Ongoing nicotine dependence 5. History of CVA, TIA 6. COPD 7. CAD with [place] 8. Acute hypoxic respiratory failure secondary to #1, status post mechanical ventilation dependence.
--- NOTE | 2017-08-29 12:47 | PN ---
PROGRESS NOTE This patient is status post cardiac arrest. The patient has a slight problem with confusion with the recent memory but otherwise he is doing well. He is ambulating in the hallway. He is afebrile. First and second heart sounds are normal. Lungs are fairly clear to auscultation and percussion. Discussed the condition with the patient as well as the . They want to proceed with the AICD. He will be scheduled on Thursday. Patient's electrolytes, BUN and creatinine are normal. MMODL / IJN: [id number] /
[2017-08-29] MEDS: CEFEPIME 1 GM in SODIUM CHLORIDE 0.9% 50 ML IVPB SCH ×2 (16:46→23:00)
[2017-08-29] MEDS: ATORVASTATIN 80 MG TAB PO SCH (20:27)
[2017-08-30] MEDS: SODIUM CHLORIDE 0.9% 1,000 ML IV SCH (02:03)
[2017-08-30 06:38] LABS: Basophils # (A) 0.1 k/uL (0-0.2); Basophils % (A) 1 %; Eosinophils # (A) 0.4 k/uL (0-0.7); Eosinophils % (A) 4 %; HCT 50.4 % (39.0-53.0); HGB 17.1 gm/dL (13.0-17.5); Lymphocytes # (A) 2.3 k/uL (1.0-4.8); Lymphocytes % (A) 22 %; MCH 31.4 pg (25.0-35.0); MCV 92.3 fL (80.0-100.0); Mean Platelet Volume 7.4; Monocytes # (A) 0.7 k/uL (0-1.0); Monocytes % (A) 7 %; Neutrophils # (A) 6.8 k/uL (1.3-7.7); Neutrophils % (A) 64 %; RBC 5.45 m/uL (4.30-5.90); RDW 13.4 % (11.5-15.5); WBC 10.6 k/uL (3.8-10.6)
[2017-08-30 06:44] LABS: Anion Gap 14 mmol/L; Blood Urea Nitrogen 23 mg/dL (9-20); Calcium 9.7 mg/dL (8.4-10.2); Carbon Dioxide 22 mmol/L (22-30); Chloride 99 mmol/L (98-107); Glucose 101 mg/dL (74-99); Platelet Count 185 k/uL (150-450); Potassium 4.7 mmol/L (3.5-5.1); Sodium 135 mmol/L (137-145)
[2017-08-30] MEDS: IPRATROPIUM-ALBUTEROL 3 ML NEB INHALATION SCH ×4 (07:45→20:26)
[2017-08-30] MEDS: HEPARIN SODIUM,PORCINE 5,000 UNIT/ML 1 ML VIAL SQ SCH ×3 (08:54→23:23)
[2017-08-30] MEDS: SPIRONOLACTONE 25 MG TAB PO SCH (08:55)
[2017-08-30] MEDS: LISINOPRIL 5 MG TAB PO SCH (08:55)
[2017-08-30] MEDS: CLOPIDOGREL 75 MG TAB PO SCH (08:55)
[2017-08-30] MEDS: ASPIRIN 81 MG PO SCH (08:55)
[2017-08-30] MEDS: AMIODARONE 200 MG TAB PO SCH ×3 (08:55→23:23)
[2017-08-30] MEDS: METOPROLOL TARTRATE 25 MG TAB PO SCH ×2 (08:55→20:59)
[2017-08-30] MEDS: CEFEPIME 1 GM in SODIUM CHLORIDE 0.9% 50 ML IVPB SCH ×3 (12:13→23:23)
--- NOTE | 2017-08-30 13:50 | P.PN ---
Subjective Progress Note Date: 08/30/17 A 57-year-old male patient who came in to the hospital with an acute cardiac arrest. The patient was found to be unresponsive by his . Apparently the patient had gone to bed around 10 PM. The heard and no complications and upon check in on her , she found him laying face down on the floor. EMS was called to the scene and the patient was initially found to be in ventricular fibrillation and he was immediately shocked and defibrillated and the patient had return of spontaneous circulation. The patient also began having spontaneous breathing. EMS put him on 100% nonrebreather and the patient got moved to the emergency department. The exact downtime is not clear although this is estimated to be around 5 minutes at least. The patient came in to the emergency department and the patient was found to have acute ST segment elevation myocardial infarction involving the inferior leads with reciprocal changes laterally. Acute myocardial infarction was suspected. The patient was immediately taken to the [facility] and the patient underwent a cardiac catheterization he was found to have 100% occlusion of the RCA and the patient underwent angioplasty and stenting of the RCA. Following that, the patient was moved to the intensive care unit intubated on a mechanical ventilator. This morning, the patient is on 10 mics of the Diprivan and is calm and comfortable. He is hemodynamically stable on no pressors. He is producing adequate amount of urine output. Overnight he was placed on IV fluids with normal saline at the rate of 75 mL an hour. His chest x-ray from today shows perihilar and upper lobe infiltrates that have increased compared to yesterday and I suspect this is related to pulmonary vessel congestion. I also suspect that the patient could've aspirated knowing that the pulmonary infiltration on the right especially in the right upper lung area is worse compared to the left. The patient also having some respiratory secretions being suctioned from the orotracheal tube that are rather thick and purulent. ET tube is in a good location. NG tube is also in the stomach. Echocardiogram was done this morning and the results are still pending for now. Meanwhile, the patient's troponins were minimally elevated at 0.03 initially and subsequently up to 0.5. The patient's creatinine today is at 1.2. His blood gases from this morning showed a pH of 7.35 with a pCO2 of 45 and pO2 of 246 and this was done on assist control mode at the rate of 14, tidal volume 550, FiO2 of 100% and a PEEP of 5. Based on his blood gases, the patient's FiO2 was dropped down to 50% . The patient is known to have coronary artery disease and the patient has been involved in a myocardial infarction back in 2007. The patient also has had previous CVA and left-sided weakness and previous history of carotid artery stenosis. He is also known to have peripheral vascular disease with iliac stents. On 08/26 2017 I'm seeing this patient for a follow-up. As mentioned earlier the patient recovered from acute cardiac arrest. He had ventricular fibrillation. Cardiac catheterization and stenting of the RCA. He was given amiodarone loading and currently is on amiodarone maintenance. His cardiac rhythm remains sinus. This morning the patient was sedated Diprivan is was calm and comfortable. He was assist control mode of ventilation. He was on a rate of 14 with a tidal volume of 550 FiO2 of 40% and a PEEP of 5. The blood gases from this morning showed a pH of 7.42 with a pCO2 of 40 and pO2 of 89. Patient was on no pressors. The patient was afebrile. Chest x-ray from today showed no acute abnormalities and EGD was in a good location. The patient had some perihilar pulmonary infiltrate and small left-sided pleural effusion. The sputum was sent for cultures and the patient was found to have gram-negative bacillus and the patient is currently on IV Zosyn. The patient is being covered for an aspiration pneumonia. Meanwhile, the renal function remains stable and echocardiogram was done that showed impairment in the LV function with an ejection fraction of 25-30% and basilar inferior segmental wall motion abnormalities, septal hypokinesis, anterolateral hypokinesis and a PA pressure that is not elevated. Based on all this, the patient was given a sedation holiday and after approximately 45 minutes of coming off Diprivan the patient was found to open his eyes spontaneously and follows some simple commands. At that point he was given a spelled his breathing trial knowing that his weaning parameters do not to be satisfactory. Within 45 minutes a blood gases were obtained and the numbers were satisfactory and based on the fact that the patient was able to give a decent cough, the patient was extubated to a nasal cannula. He tolerated extubation well without any post exhibition stridor or respiratory distress. Hemodynamically remained also stable. We have noted that the patient has some issues with his personality knowing that he did not show any emotion and he had a flat affect. This may be related to a component of hypoxic encephalopathy post cardiac arrest. Nevertheless he was moving all 4 extremities more so in the upper extremities compared to lower extremities. On I'm seeing the patient in follow-up. The patient was extubated yesterday without any major difficulties. This morning he is wide awake and communicating. He is able to move all 4 extremities without any limitation. No headaches. No change in mental status. Cardiac rhythm is sinus. No cardiac arrhythmias have been noted. The patient is afebrile hemodynamically stable. No angina. Chest x-ray shows some limited bibasilar pulmonary infiltrates. The sputum analysis showing Serratia marcescens that was resistant to Zosyn. and the patient is afebrile and his white cell count is at 13.3. The patient is currently on room air oxygen pulse 6 setting at around 94% . On 08/30/2017, I'm seeing this patient for a follow-up. The patient has no specific complaints. There has been some issues with his overall memory and balance and gait and this was felt to be related to a component of hypoxic encephalopathy following the cardiac arrest. The patient is being seen by neurology. The patient has obvious is suffering from short-term memory loss and recalling difficulties. He is also having some divided attention difficulty as well. From the pulmonary standpoint, the patient is doing extremely well. No respiratory difficulties. Cardiac rhythm is to sinus. No headache. No chest pain. No cardiac arrhythmias. The patient will be having an AICD placed within the next 24 hours. Objective - Vital Signs Vital signs: Vital Signs Temp 97.3 F L 08/30/17 08:00 Pulse 96 08/30/17 12:55 Resp 16 08/30/17 08:00 BP 139/81 08/30/17 08:00 Pulse Ox 93 L 08/30/17 08:00 Intake & Output 08/29/17 08/30/17 08/30/17 18:59 06:59 18:59 Intake Total 560 960 180 Balance 560 960 180 Weight 85.9 kg Intake: Oral 560 960 180 Other: Voiding Method Urinal Urinal Urinal # Voids 2 3 # Bowel Movements 1 ABP, PAP, CO, CI - Last Documented Arterial Blood Pressure 153/86 - Exam GENERAL: The patient is alert and oriented x3, not in any acute distress. Well developed, well nourished. HEENT: Pupils are round and equally reacting to light. EOMI. No scleral icterus. No conjunctival pallor. Normocephalic, atraumatic. No pharyngeal erythema. No thyromegaly. CARDIOVASCULAR: S1 and S2 present. No murmurs, rubs, or gallops. PULMONARY: Chest is clear to auscultation, no wheezing or crackles. ABDOMEN: Soft, nontender, nondistended, normoactive bowel sounds. No palpable organomegaly. MUSCULOSKELETAL: No joint swelling or deformity. EXTREMITIES: No cyanosis, clubbing, or pedal edema. NEUROLOGICAL: Gross neurological examination did not reveal any focal deficits. SKIN: No rashes. - Labs CBC & Chem 7: 08/30/17 05:54 08/30/17 05:54 Labs: Abnormal Lab Results - Last 24 Hours (Table) 08/30/17 Range/Units 05:54 Sodium 135 L (137-145) mmol/L BUN 23 H (9-20) mg/dL Glucose 101 H (74-99) mg/dL Microbiology - Last 24 Hours (Table) 08/25/17 17:09 Blood Culture - Preliminary Blood No Growth after 96 hours Assessment and Plan Plan: Assessment 1 acute cardiac arrest/ventricle fibrillation, status post successful defibrillation and resuscitation with a downtime estimated to be around 5-10 minutes. The patient was successfully resuscitated. The patient is currently on oral amiodarone and beta blockers. The patient is not having any further arrhythmia and his cardiac rhythm is sinus at this point. He has recovered from his acute cardiac arrest and there are some limited signs of hypoxic encephalopathy including difficulties with short-term memory, multitasking and balance. Neurology is also on the case. [address] segment elevation inferior wall myocardial infarction, status post emergent cardiac catheterization and stenting of RCA 2 stents. 3 acute respiratory failure secondary to above, the patient was successfully extubated and currently the patient is on room air. 4 suspected right basilar aspiration pneumonia currently on IV Zosyn. The sputum showed Serratia marcescens and the patient is currently on IV cefepime 5 COPD 6 known history of coronary artery disease with previous VT in 2007 7 history of CVA with some residual left-sided weakness 8 congestion heart failure with segmental wall motion abnormalities and the patient has an ejection fraction of 25% 9 peripheral vascular disease with history of iliac stents 10 hyperlipidemia 11 hypertension 12 obstructive sleep apnea 13 chronic back pain 14 degenerative arthritis 15 possible nasal bone fracture and pansinusitis and the patient was started on IV Zosyn. No evidence of any cervical spine fracture and there is mild spondylosis at the level of C5-C6 16 carotid artery stenosis Plan The patient will be having an AICD placement per server cashier recommendation. The patient neurologically is being monitored. No cardiac exam is a been noted. Treatment of CAD and post VT and cardiac arrest per cardiology. Follow pulmonary standpoint, the patient will continue using incentive spirometer. Completed course of IV cefepime. Discharge once felt appropriate by the rest of the consultants. Pulmonary will sign off the case.
[2017-08-30] MEDS: ATORVASTATIN 80 MG TAB PO SCH (20:59)
--- NOTE | 2017-08-30 23:36 | PN ---
PROGRESS NOTE This patient is status post cardiac arrest secondary to ventricular fibrillation and tachycardia. The patient is doing fairly well. He is up and about. Patient has a minimal problem with memory. Otherwise he is doing well. Patient does not have any respiratory distress. The patient remains afebrile. Blood pressure is 108/69 mmHg. Oxygen saturation is 93%. Prosthetic 2nd heart sounds are normal. Lungs are clinically clear to auscultation. The patient's hemoglobin is normal. Electrolytes, BUN and creatinine are normal. The patient is supposed to undergo AICD placement on Thursday. MMODL / IJN: [id number] /
[2017-08-31] MEDS: SODIUM CHLORIDE 0.9% 1,000 ML IV SCH (03:34)
[2017-08-31] MEDS: IPRATROPIUM-ALBUTEROL 3 ML NEB INHALATION SCH ×4 (07:20→20:25)
[2017-08-31] MEDS: HEPARIN SODIUM,PORCINE 5,000 UNIT/ML 1 ML VIAL SQ SCH ×3 (09:00→23:33)
[2017-08-31] MEDS: AMIODARONE 200 MG TAB PO SCH ×3 (09:00→21:58)
[2017-08-31] MEDS: CEFEPIME 1 GM in SODIUM CHLORIDE 0.9% 50 ML IVPB SCH ×3 (09:00→23:33)
[2017-08-31] MEDS: CLOPIDOGREL 75 MG TAB PO SCH (09:01)
[2017-08-31] MEDS: METOPROLOL TARTRATE 25 MG TAB PO SCH ×2 (09:01→20:12)
[2017-08-31] MEDS: SPIRONOLACTONE 25 MG TAB PO SCH (09:01)
[2017-08-31] MEDS: LISINOPRIL 5 MG TAB PO SCH (09:01)
[2017-08-31] MEDS: ASPIRIN 81 MG PO SCH (09:01)
--- NOTE | 2017-08-31 10:52 | P.PN ---
Subjective Progress Note Date: 08/30/17 57-year-old gentleman admitted status post cardiac arrest, V. fib, acute STEMI, status post cardiac cath with stenting, right aspiration pneumonia and multiple other medical issues. Significant clinical improvement. Transferred out of ICU and currently on telemetry unit. Maintained on aspirin, beta jolene, Bactrim for Serratia marcescens in sputum. Echo reporting EF of 25-30% ,Cardiology discussing AICD placement with patient and family. T bili 2.1. Denies chest pain, palpitations or shortness of breath. Denies any lightheadedness dizziness or focal deficits. Family reports patient's memory worse than baseline. Afebrile. 08/29/2017 Patient's renal function is worsening because of which Bactrim will be discontinued patient has separation the sputum Serratia has a property of inducible beta lactamase but fourth-generation cephalosporins can be used because of which patient will be started on cefepime and Serratia is sensitive to cefepime. Patient will not be started on any fluoroquinolones because of his history of V. fib. Patient is awaiting AICD placement on Thursday. 08/30/2017 No overnight events patient is otherwise clinically doing well patient is awaiting placement of AICD Constitutional: Denied any fatigue denied any fever. Cardio vascular: denied any chest pain, palpitations Gastrointestinal denied any nausea vomiting Pulmonary: Denied any shortness of breath cough Neurologic denied any new focal deficits Objective - Vital Signs Vital signs: Vital Signs Temp 97.0 F L 08/31/17 08:00 Pulse 81 08/31/17 08:00 Resp 16 08/31/17 04:00 BP 130/63 08/31/17 08:00 Pulse Ox 90 L 08/31/17 08:00 Intake & Output 08/30/17 08/31/17 08/31/17 18:59 06:59 18:59 Intake Total 540 100 360 Balance 540 100 360 Weight 85.4 kg Intake: IV 100 Cefepime 1 gm In Sodium 100 Chloride 0.9% 50 ml @ 100 mls/hr IVPB Q8HR [facility] Rx# :[id number] Oral 540 360 Other: Voiding Method Urinal Urinal # Voids 1 ABP, PAP, CO, CI - Last Documented Arterial Blood Pressure 153/86 - Exam PHYSICAL EXAMINATION: GENERAL: The patient is alert and oriented x3, not in any acute distress. Well developed, well nourished. HEENT: Pupils are round and equally reacting to light. EOMI. No scleral icterus. No conjunctival pallor. Normocephalic, atraumatic. No pharyngeal erythema. No thyromegaly. CARDIOVASCULAR: S1 and S2 present. No murmurs, rubs, or gallops. PULMONARY: Chest is clear to auscultation, no wheezing or crackles. ABDOMEN: Soft, nontender, nondistended, normoactive bowel sounds. No palpable organomegaly. MUSCULOSKELETAL: No joint swelling or deformity. EXTREMITIES: No cyanosis, clubbing, or pedal edema. NEUROLOGICAL: Gross neurological examination did not reveal any focal deficits. SKIN: No rashes. - Labs CBC & Chem 7: 08/30/17 05:54 08/30/17 05:54 Labs: Microbiology - Last 24 Hours (Table) 08/25/17 17:09 Blood Culture - Preliminary Blood No Growth after 120 hours Assessment and Plan Plan: Cardiac arrest, ry ventricular fibrillation, acute STEMI inferior wall DE, status post cardiac catheterization and stenting of the totally occluded right coronary artery in a long segment with reduction from 100% to 0%. Ischemic cardiomyopathy, EF 25%. Patient is awaiting AICD placement on Thursday 2. Acute Right-basilar aspiration pneumonia, Serratia marcescens-sputum culture, patient and medics was switched to cefepime patient probably will not require any antibiotics upon discharge if he requires and antibiotics patient will be given fluoroquinolones Serratia 3. Peripheral Vascular disease 4. Ongoing nicotine dependence 5. History of CVA, TIA 6. COPD 7. CAD with [place] 8. Acute hypoxic respiratory failure secondary to #1, status post mechanical ventilation dependence.
--- NOTE | 2017-08-31 11:35 | P.PN ---
Subjective Progress Note Date: 08/31/17 This is a pleasant 57-year-old gentleman with history of PVD and coronary artery disease who presented with sudden cardiac arrest and ventricular fibrillation. Underwent cardiac catheterization was found to have totally occluded RCA and ectopic left circumflex subsequently he underwent successful stenting of the totally occluded RCA. Echocardiogram showed an ejection fraction of 25-30%. He is scheduled to undergo AICD placement by Dr. Novak tomorrow. Patient was seen and examined this morning, denies any chest discomfort, no palpitations, no dizziness or lightheadedness. He has been up ambulating without any difficulty. Hemodynamically stable. Objective - Vital Signs Vital signs: Vital Signs Temp 97.0 F L 08/31/17 08:00 Pulse 88 08/31/17 11:21 Resp 16 08/31/17 04:00 BP 130/63 08/31/17 08:00 Pulse Ox 90 L 08/31/17 08:00 Intake & Output 08/30/17 08/31/17 08/31/17 18:59 06:59 18:59 Intake Total 540 100 360 Balance 540 100 360 Weight 85.4 kg Intake: IV 100 Cefepime 1 gm In Sodium 100 Chloride 0.9% 50 ml @ 100 mls/hr IVPB Q8HR [facility] Rx# :[id number] Oral 540 360 Other: Voiding Method Urinal Urinal # Voids 1 ABP, PAP, CO, CI - Last Documented Arterial Blood Pressure 153/86 - Exam PHYSICAL EXAMINATION: HEENT: [Head is atraumatic, normocephalic. Pupils equal, round. Neck is supple. There is no elevated jugular venous pressure.] HEART EXAMINATION: [Heart S1, S2 normal. No murmur or gallop heard.] CHEST EXAMINATION:[ Lungs are clear to auscultation and precussion. No chest wall tenderness is noted on palpation or with deep breathing.] ABDOMEN: [ Soft, nontender. Bowel sounds are heard. No organomegaly noted]. EXTREMITIES:[ 2+ peripheral pulses with no evidence of peripheral edema and no calf tenderness noted]. NEUROLOGIC [patient is awake, alert and oriented -3.] . - Labs CBC & Chem 7: 08/30/17 05:54 08/30/17 05:54 Labs: Microbiology - Last 24 Hours (Table) 08/25/17 17:09 Blood Culture - Preliminary Blood No Growth after 120 hours Assessment and Plan Plan: Assessment: #1 status post cardiac arrest #2 ischemic cardiomyopathy #3 ventricular tachycardia and V. fib Plan Patient is scheduled to undergo AICD tomorrow by Dr. Novak. The risks and the benefits were explained to the patient in detail. DNP note has been reviewed, I agree with a documented findings and plan of care. Patient was seen and examined.
--- NOTE | 2017-08-31 14:11 | XR ---
EXAMINATION TYPE: XR chest 2V DATE OF EXAM: 08/31/2017 COMPARISON: 08/27/2017 INDICATION: Follow-up CHF TECHNIQUE: Frontal and lateral views of the chest are obtained. FINDINGS: The heart size is normal. The pulmonary vasculature is normal. The lungs are clear. Stimulator leads are in the mid thoracic region. Old right shoulder repair is e vident. IMPRESSION: 1. No acute pulmonary process. 2. Previous findings of congestive heart failure and resultant on the current exam.
--- NOTE | 2017-08-31 17:50 | P.PN ---
Subjective Progress Note Date: 08/31/17 Progress note being dictated for Dr. Nguyen Interval history: This Is a 57-year-old gentleman admitted status post cardiac arrest, V. fib, acute STEMI, status post cardiac cath with stenting, right aspiration pneumonia and multiple other medical issues. Significant clinical improvement. Transferred out of ICU and currently on telemetry unit. Maintained on aspirin, beta jolene, Bactrim for Serratia marcescens in sputum. Echo reporting EF of 25-30% ,Cardiology discussing AICD placement with patient and family. T bili 2.1. Denies chest pain, palpitations or shortness of breath. Denies any lightheadedness dizziness or focal deficits. Family reports patient's memory worse than baseline. Afebrile. 08/29/2017 Patient's renal function is worsening because of which Bactrim will be discontinued patient has separation the sputum Serratia has a property of inducible beta lactamase but fourth-generation cephalosporins can be used because of which patient will be started on cefepime and Serratia is sensitive to cefepime. Patient will not be started on any fluoroquinolones because of his history of V. fib. Patient is awaiting AICD placement on Thursday. 08/30/2017 No overnight events patient is otherwise clinically doing well patient is awaiting placement of AICD Constitutional: Denied any fatigue denied any fever. Cardio vascular: denied any chest pain, palpitations Gastrointestinal denied any nausea vomiting Pulmonary: Denied any shortness of breath cough Neurologic denied any new focal deficits 08/31/2017 scheduled for AICD tomorrow. Telemetry reporting sinus rhythm, depressed ST, PVCs. Currently denies chest pain, palpitations or increased shortness of breath. Objective - Vital Signs Vital signs: Vital Signs Temp 97.0 F L 08/31/17 08:00 Pulse 85 08/31/17 16:41 Resp 14 08/31/17 16:41 BP 117/64 08/31/17 12:00 Pulse Ox 96 08/31/17 16:28 Intake & Output 08/30/17 08/31/17 08/31/17 18:59 06:59 18:59 Intake Total 540 100 540 Output Total 0 Balance 540 100 540 Weight 85.4 kg Intake: IV 100 Cefepime 1 gm In Sodium 100 Chloride 0.9% 50 ml @ 100 mls/hr IVPB Q8HR [facility] Rx# :[id number] Oral 540 540 Output: Urine 0 Other: Voiding Method Urinal Urinal # Voids 1 ABP, PAP, CO, CI - Last Documented Arterial Blood Pressure 153/86 - Exam PHYSICAL EXAM: VITAL SIGNS: As above GENERAL: Sitting up at side of bed, no acute distress HEENT: Conjunctivae normal. eyes normal. Oral mucosa moist NECK: No JVD. No thyroid enlargement. No LNs CARDIOVASCULAR: S1, S2 muffled. No murmur RESPIRATION: Breath sounds diminished in the bases. No rhonchi or crackles. ABDOMEN: Soft, nontender . No guarding. no masses palpable. No ascites,Bowel sounds heard. LEGS: No edema. no swelling PSYCHIATRY: Alert and oriented -3, mood and affect normal. NERVOUS SYSTEM: Cranial N 2-12 grossly normal. Moves all 4 limbs. Diffuse weakness No focal deficits. Skin: no ulcer no rash Joints: No active swelling. No inflammation. Lymphatic system. No LN neck axilla or groin. - Labs CBC & Chem 7: 08/30/17 05:54 08/30/17 05:54 Labs: Microbiology - Last 24 Hours (Table) 08/25/17 17:09 Blood Culture - Preliminary Blood No Growth after 120 hours Assessment and Plan Assessment: Cardiac arrest, possibly primary ventricular fibrillation, acute STEMI inferior wall SC, status post cardiac catheterization and stenting of the totally occluded right coronary artery in a long segment with reduction from 100% to 0% . Ischemic cardiomyopathy, EF 25%. AICD placement pending. 2. Acute Right-basilar aspiration pneumonia, Serratia marcescens-sputum culture, secondary to the above 3. Peripheral Vascular disease 4. Ongoing nicotine dependence 5. History of CVA, TIA 6. COPD 7. CAD with [place] 8. Acute hypoxic respiratory failure secondary to #1, status post mechanical ventilation dependence. Plan: Continue on current medication regime , antibiotics, monitoring and symptomatic treatment. AICD placement scheduled for tomorrow. Aggressive pulmonary toileting. Smoking cessation readdressed. Further recommendations to follow. The impression and plan of care has been dictated as directed. : I performed a history and examination of this patient, discussed the same with the dictator. I agree with the dictator's note ,documented as a scribe. Any additional findings or plans will be noted.
[2017-08-31] MEDS: ATORVASTATIN 80 MG TAB PO SCH (20:12)
[2017-09-01] MEDS: SODIUM CHLORIDE 0.9% 1,000 ML IV SCH (03:57)
[2017-09-01] MEDS: METOPROLOL TARTRATE 25 MG TAB PO SCH ×2 (06:24→20:08)
[2017-09-01] MEDS: AMIODARONE 200 MG TAB PO SCH ×3 (06:24→22:10)
[2017-09-01] MEDS: IPRATROPIUM-ALBUTEROL 3 ML NEB INHALATION SCH ×4 (08:01→20:56)
[2017-09-01] MEDS: HEPARIN SODIUM,PORCINE 5,000 UNIT/ML 1 ML VIAL SQ SCH ×2 (08:09→17:33)
[2017-09-01] MEDS: CEFEPIME 1 GM in SODIUM CHLORIDE 0.9% 50 ML IVPB SCH ×3 (08:44→23:57)
[2017-09-01] MEDS: ASPIRIN 81 MG PO SCH (08:44)
[2017-09-01] MEDS: SPIRONOLACTONE 25 MG TAB PO SCH (08:44)
[2017-09-01] MEDS: LISINOPRIL 5 MG TAB PO SCH (08:44)
[2017-09-01] MEDS: CLOPIDOGREL 75 MG TAB PO SCH (08:44)
[2017-09-01] MEDS ORDERED: methylPREDNISolone SOD SUCCI 125 MG/2 ML VIAL IV STA (08:59)
[2017-09-01] MEDS ORDERED: FAMOTIDINE 20 MG/2 ML VIAL IV STA (08:59)
[2017-09-01] MEDS ORDERED: diphenhydrAMINE 50 MG/ML 1 ML VIAL IVP STA (08:59)
[2017-09-01] MEDS ORDERED: ceFAZolin 1,000 MG in SODIUM CHLORIDE 0.9% IRRIGATIO 250 ML IRRIGATION STA (09:35)
[2017-09-01] MEDS ORDERED: ceFAZolin IN SWFI 2 GM/20 ML SYRINGE IVP STA (09:43)
[2017-09-01] MEDS ORDERED: MIDAZOLAM 2 MG/2 ML VIAL ONE (09:48)
[2017-09-01] MEDS ORDERED: IV FLUID CONTINUATION 950 ML IV ONE (09:48)
[2017-09-01] MEDS ORDERED: PROPOFOL 10 MG/ML 20 ML VIAL IV ONE (09:48)
[2017-09-01] MEDS ORDERED: LIDOCAINE 2% INJ 20 MG/ML SQ ONE (10:20)
[2017-09-01] MEDS: LIDOCAINE 2% INJ 20 MG/ML SQ ONE ×2 (10:29→10:30)
[2017-09-01] MEDS ORDERED: IODIXANOL 320 MG/ML 100 ML IV ONE (10:31)
[2017-09-01] MEDS ORDERED: ACETAMINOPHEN TAB 325 MG TAB PO PRN (11:19)
[2017-09-01] MEDS ORDERED: HYDROcodone/APAP 5-325MG 1 EACH TAB PO PRN (11:19)
[2017-09-01] MEDS ORDERED: ACETAMINOPHEN IV (For NPO) 1,000 MG in EMPTY BAG 1 BAG IVPB ONE (12:00)
--- NOTE | 2017-09-01 13:00 | P.PN ---
Subjective Progress Note Date: 09/01/17 Progress note being dictated for Dr. Nguyen Interval history: This Is a 57-year-old gentleman admitted status post cardiac arrest, V. fib, acute STEMI, status post cardiac cath with stenting, right aspiration pneumonia and multiple other medical issues. Significant clinical improvement. Transferred out of ICU and currently on telemetry unit. Maintained on aspirin, beta jolene, Bactrim for Serratia marcescens in sputum. Echo reporting EF of 25-30% ,Cardiology discussing AICD placement with patient and family. T bili 2.1. Denies chest pain, palpitations or shortness of breath. Denies any lightheadedness dizziness or focal deficits. Family reports patient's memory worse than baseline. Afebrile. 08/29/2017 Patient's renal function is worsening because of which Bactrim will be discontinued patient has separation the sputum Serratia has a property of inducible beta lactamase but fourth-generation cephalosporins can be used because of which patient will be started on cefepime and Serratia is sensitive to cefepime. Patient will not be started on any fluoroquinolones because of his history of V. fib. Patient is awaiting AICD placement on Thursday. 08/30/2017 No overnight events patient is otherwise clinically doing well patient is awaiting placement of AICD Constitutional: Denied any fatigue denied any fever. Cardio vascular: denied any chest pain, palpitations Gastrointestinal denied any nausea vomiting Pulmonary: Denied any shortness of breath cough Neurologic denied any new focal deficits 08/31/2017 scheduled for AICD tomorrow. Telemetry reporting sinus rhythm, depressed ST, PVCs. Currently denies chest pain, palpitations or increased shortness of breath. 09/01/2017 scheduled for AICD today. Denies chest pain, palpitations or increasing shortness of breath. Afebrile. Objective - Vital Signs Vital signs: Vital Signs Temp 96.3 F L 09/01/17 08:00 Pulse 84 09/01/17 08:16 Resp 17 09/01/17 04:50 BP 99/58 09/01/17 08:00 Pulse Ox 93 L 09/01/17 08:02 Intake & Output 08/31/17 09/01/17 09/01/17 18:59 06:59 18:59 Intake Total 900 200 50 Output Total 0 0 Balance 900 200 50 Weight 86.8 kg Intake: IV 50 Oral 900 200 0 Output: Urine 0 0 Other: Voiding Method Urinal # Voids 2 ABP, PAP, CO, CI - Last Documented Arterial Blood Pressure 153/86 - Exam PHYSICAL EXAM: VITAL SIGNS: As above GENERAL: Sitting up in bed, no acute distress HEENT: Conjunctivae normal. eyes normal. Oral mucosa moist NECK: No JVD. No thyroid enlargement. No LNs CARDIOVASCULAR: S1, S2 muffled. No murmur RESPIRATION: Breath sounds diminished in the bases. No rhonchi or crackles. ABDOMEN: Soft, nontender . No guarding. no masses palpable. No ascites,Bowel sounds heard. LEGS: No edema. no swelling PSYCHIATRY: Alert and oriented -3, mood and affect normal. NERVOUS SYSTEM: Cranial N 2-12 grossly normal. Moves all 4 limbs. Diffuse weakness No focal deficits. Skin: no ulcer no rash Joints: No active swelling. No inflammation. Lymphatic system. No LN neck axilla or groin. - Labs CBC & Chem 7: 08/30/17 05:54 08/30/17 05:54 Labs: Microbiology - Last 24 Hours (Table) 08/25/17 17:09 Blood Culture - Final Blood No Growth after 144 hours Assessment and Plan Assessment: Cardiac arrest, possibly primary ventricular fibrillation, acute STEMI inferior wall [place], status post cardiac catheterization and stenting of the totally occluded right coronary artery in a long segment with reduction from 100% to 0% . Ischemic cardiomyopathy, EF 25%. AICD placement pending. 2. Acute Right-basilar aspiration pneumonia, Serratia marcescens-sputum culture, secondary to the above 3. Peripheral Vascular disease 4. Ongoing nicotine dependence 5. History of CVA, TIA 6. COPD 7. CAD with [place] 8. Acute hypoxic respiratory failure secondary to #1, status post mechanical ventilation dependence. Plan: Continue on current medication regime , antibiotics, monitoring and symptomatic treatment. AICD placement scheduled for today. Aggressive pulmonary toileting. Smoking cessation readdressed. Discharge planning in progress for tomorrow. The impression and plan of care has been dictated as directed. : I performed a history and examination of this patient, discussed the same with the dictator. I agree with the dictator's note ,documented as a scribe. Any additional findings or plans will be noted.
[2017-09-01] MEDS ORDERED: CEFEPIME 1 GM in SODIUM CHLORIDE 0.9% 50 ML IVPB ONE (16:00)
[2017-09-01] MEDS: ceFAZolin IN SWFI 2 GM/20 ML SYRINGE IVP SCH ×2 (17:33→22:09)
[2017-09-01] MEDS: ATORVASTATIN 80 MG TAB PO SCH (20:08)
[2017-09-02] MEDS: SODIUM CHLORIDE 0.9% 1,000 ML IV SCH (03:30)
[2017-09-02 06:41] VITALS: TEMP 96.9
--- NOTE | 2017-09-02 07:17 | XR ---
EXAMINATION TYPE: XR chest 2V DATE OF EXAM: 09/02/2017 COMPARISON: 08/31/2017 HISTORY: 57-year-old male lead placement check TECHNIQUE: Frontal and lateral views FINDINGS: Left anterior chest wall AICD generator with right ventricular lead. Spinal stimulator array slightly eccentric towards the left along the mid thoracic spinal canal. Retained epicardial pacer leads. Heart upper limits of normal in size. Aorta and pulmonary vasculature within normal limits. Strandy a reas of atelectasis in the left lower lung and right base. No consolidation or pleural effusion. Suture anchors right greater tuberosity from prior cuff repair. IMPRESSION: Single right ventricular lead left chest wall AICD generator. Strandy areas of atelectasis. No acute process seen.
[2017-09-02 07:19] LABS: Anion Gap 9 mmol/L; Blood Urea Nitrogen 22 mg/dL (9-20); Calcium 9.8 mg/dL (8.4-10.2); Carbon Dioxide 28 mmol/L (22-30); Chloride 99 mmol/L (98-107); Glucose 100 mg/dL (74-99); Potassium 4.7 mmol/L (3.5-5.1); Sodium 136 mmol/L (137-145)
[2017-09-02 07:34] LABS: Basophils # (A) 0.1 k/uL (0-0.2); Basophils % (A) 1 %; Eosinophils # (A) 0.1 k/uL (0-0.7); Eosinophils % (A) 0 %; HCT 49.4 % (39.0-53.0); HGB 16.7 gm/dL (13.0-17.5); Lymphocytes # (A) 2.9 k/uL (1.0-4.8); Lymphocytes % (A) 17 %; MCH 31.5 pg (25.0-35.0); MCHC 33.8 g/dL (31.0-37.0); MCV 93.3 fL (80.0-100.0); Mean Platelet Volume 7.5; Monocytes # (A) 0.8 k/uL (0-1.0); Monocytes % (A) 4 %; Neutrophils # (A) 12.8 k/uL (1.3-7.7); Neutrophils % (A) 75 %; Platelet Count 248 k/uL (150-450); RDW 13.4 % (11.5-15.5)
[2017-09-02] MEDS: CEFEPIME 1 GM in SODIUM CHLORIDE 0.9% 50 ML IVPB SCH (08:23)
[2017-09-02] MEDS: HEPARIN SODIUM,PORCINE 5,000 UNIT/ML 1 ML VIAL SQ SCH ×2 (08:23)
[2017-09-02] MEDS: AMIODARONE 200 MG TAB PO SCH ×2 (08:23→16:25)
[2017-09-02] MEDS: LISINOPRIL 5 MG TAB PO SCH (08:24)
[2017-09-02] MEDS: METOPROLOL TARTRATE 25 MG TAB PO SCH (08:24)
[2017-09-02] MEDS: ASPIRIN 81 MG PO SCH (08:24)
[2017-09-02] MEDS: SPIRONOLACTONE 25 MG TAB PO SCH (08:24)
[2017-09-02] MEDS: CLOPIDOGREL 75 MG TAB PO SCH (08:24)
[2017-09-02] MEDS: IPRATROPIUM-ALBUTEROL 3 ML NEB INHALATION SCH ×3 (09:13→17:06)
--- NOTE | 2017-09-02 11:09 | P.PN ---
Subjective Progress Note Date: 09/02/17 This is a pleasant 57-year-old gentleman with history of PVD and coronary artery disease who presented with sudden cardiac arrest and ventricular fibrillation. Underwent cardiac catheterization was found to have totally occluded RCA and ectopic left circumflex subsequently he underwent successful stenting of the totally occluded RCA. Echocardiogram showed an ejection fraction of 25-30%. He is scheduled to undergo AICD placement by Dr. Novak tomorrow. Patient was seen and examined this morning, denies any chest discomfort, no palpitations, no dizziness or lightheadedness. He has been up ambulating without any difficulty. Hemodynamically stable. 09/02/2017 Patient seen and examined this morning, status post AICD implantation of yesterday. Chest x-ray was reviewed which did not reveal any evidence of a pneumothorax. Device was interrogated this morning and is functioning appropriately. From cardiology's perspective, patient may be able to be discharged home today, we'll make a follow-up appointment in the office and with the device clinic post discharge. Objective - Vital Signs Vital signs: Vital Signs Temp 96.9 F L 09/02/17 06:39 Pulse 88 09/02/17 09:27 Resp 17 09/02/17 06:39 BP 110/60 09/02/17 06:39 Pulse Ox 95 09/02/17 06:39 Intake & Output 09/01/17 09/02/17 09/02/17 18:59 06:59 18:59 Intake Total 526 520 240 Output Total 300 Balance 226 520 240 Weight 85.1 kg Intake: IV 50 220 Sodium Chloride 0.9% 1, 220 000 ml @ 20 mls/hr IV . Q24H RANDI Rx#:[id number] Intake, IV Titration 50 Amount Cefepime 1 gm In Sodium 50 Chloride 0.9% 50 ml @ 100 mls/hr IVPB Q8HR RANDI Rx# :[id number] Oral 476 250 240 Output: Urine 300 Other: Voiding Method Urinal # Voids 1 ABP, PAP, CO, CI - Last Documented Arterial Blood Pressure 153/86 - Exam PHYSICAL EXAMINATION: HEENT: [Head is atraumatic, normocephalic. Pupils equal, round. Neck is supple. There is no elevated jugular venous pressure.] HEART EXAMINATION: [Heart S1, S2 normal. No murmur or gallop heard.] CHEST EXAMINATION:[ Lungs are clear to auscultation and precussion. No chest wall tenderness is noted on palpation or with deep breathing.] Site of device implantation, dressing is dry and intact. ABDOMEN: [ Soft, nontender. Bowel sounds are heard. No organomegaly noted]. EXTREMITIES:[ 2+ peripheral pulses with no evidence of peripheral edema and no calf tenderness noted]. NEUROLOGIC [patient is awake, alert and oriented -3.] . - Labs CBC & Chem 7: 09/02/17 06:38 09/02/17 06:38 Labs: Abnormal Lab Results - Last 24 Hours (Table) 09/02/17 09/02/17 Range/Units 06:38 06:38 WBC 17.0 H (3.8-10.6) k/uL Neutrophils # 12.8 H (1.3-7.7) k/uL Sodium 136 L (137-145) mmol/L BUN 22 H (9-20) mg/dL Glucose 100 H (74-99) mg/dL Assessment and Plan Plan: Assessment: #1 status post cardiac arrest #2 ischemic cardiomyopathy #3 ventricular tachycardia and V. fib #4 status post implantation of AICD #5 status post successful stenting of the totally occluded mid right coronary artery #6 peripheral vascular disease #7 hyperlipidemia #8 hypertension Plan From cardiology's perspective, patient may be able to be discharged home today. We will make a follow-up appointment in the office in one week, and a follow- up appointment in the device clinic as well. Patient will be discharged home on amiodarone 200 mg one tablet by mouth 3 times a day, aspirin 81 mg daily, Lipitor 80 mg daily, Plavix 75 mg daily, lisinopril 5 mg daily, metoprolol 25 mg one tablet by mouth twice a day, Aldactone 25 mg daily, and sublingual nitroglycerin as needed for chest pain. DNP note has been reviewed, I agree with a documented findings and plan of care. Patient was seen and examined.
[2017-09-02 16:28] VITALS: BP 108/57; PULSE 66; RESP 16
--- NOTE | 2017-09-02 16:59 | P.DS ---
Providers Date of admission: 08/25/17 01:52 Expected date of discharge: 09/02/17 Attending physician: Dulce Nguyen Consults: 08/25/17 01:19 Consult Physician Stat Consulting Provider: [facility] Consult Reason/Comments: STEMI ACTIVATION COMPLETE Do you want consulting provider notified?: Yes 08/25/17 02:00 Consult Physician Stat Consulting Provider: Washington Mcrae Consult Reason/Comments: cardiopulmonary arrest Do you want consulting provider notified?: Already Contacted 08/25/17 03:18 Consult Physician Routine Consulting Provider: [facility] Consult Reason/Comments: Post Interventional patient Do you want consulting provider notified?: Already Contacted 08/26/17 09:11 Consult Physician Routine Consulting Provider: Farhana Moore Consult Reason/Comments: VFib arrest, slow to wake Do you want consulting provider notified?: Yes Primary care physician: Kennedy Hernandez [facility] Course: Final Diagnoses: Cardiac arrest, possibly primary ventricular fibrillation, acute STEMI inferior wall [place], status post cardiac catheterization and stenting of the totally occluded right coronary artery in a long segment with reduction from 100% to 0% . Ischemic cardiomyopathy, EF 25%. S/P AICD placement. 2. Acute Right-basilar aspiration pneumonia, Serratia marcescens-sputum culture, secondary to the above 3. Peripheral Vascular disease 4. Ongoing nicotine dependence 5. History of CVA, TIA 6. COPD 7. CAD with [place] 8. Acute hypoxic respiratory failure secondary to #1, status post mechanical ventilation dependence. Hospital course:This Is a 57-year-old gentleman admitted status post cardiac arrest, V. fib, acute STEMI, status post cardiac cath with stenting, right aspiration pneumonia and multiple other medical issues. Received antibiotics for Serratia marcescens in sputum. Echo reporting EF of 25-30% , status post AICD placement. Significant clinical improvement. Cleared by consults for discharge. Patient is being discharged home with family in a stable condition with guarded prognosis. Physical exam: VSS.CARDIOVASCULAR: S1, S2 muffled. No murmur.RESPIRATION: Breath sounds diminished in the bases. No rhonchi or crackles. ABDOMEN: Soft, nontender,Bowel sounds heard.PSYCHIATRY: Alert and oriented -3 , mood and affect normal.No focal deficits. The impression and plan of care has been dictated as directed. : I performed a history and examination of this patient, discussed the same with the dictator. I agree with the dictator's note ,documented as a scribe. Any additional findings or plans will be noted. Time taken: Greater than 35 minutes Patient Condition at Discharge: Stable Plan - Discharge Summary Discharge Rx Participant: Yes New Discharge Prescriptions: New Amiodarone [Cordarone] 200 mg PO TID #90 tab Aspirin 81 mg PO DAILY #30 chew Atorvastatin [Lipitor] 80 mg PO HS #30 tab Lisinopril [Zestril] 5 mg PO DAILY #30 tab Metoprolol Tartrate [Lopressor] 25 mg PO BID #60 tab Spironolactone [Aldactone] 25 mg PO DAILY #30 tab Ciprofloxacin HCl [Cipro] 500 mg PO BID 3 Days #6 tab Continue Albuterol Inhaler [Ventolin Hfa Inhaler] 2 puff INHALATION DIRECTED PRN PRN Reason: Shortness Of Breath Clopidogrel [Plavix] 75 mg PO DAILY #90 tab Isosorbide Mononitrate ER [Imdur] 60 mg PO DAILY #30 tab.er.24h Nitroglycerin Sl Tabs [Nitrostat] 0.4 mg SUBLINGUAL Q5M PRN #25 tab PRN Reason: Chest Pain Discontinued Simvastatin [Zocor] 40 mg PO HS Atenolol [Tenormin] 25 mg PO DAILY Hydrochlorothiazide 12.5 mg PO DAILY Discharge Medication List Albuterol Inhaler [Ventolin Hfa Inhaler] 2 puff INHALATION DIRECTED PRN 05/27 [History] Amiodarone [Cordarone] 200 mg PO TID #90 tab 09/02/17 [Rx] Aspirin 81 mg PO DAILY #30 chew 09/02/17 [Rx] Atorvastatin [Lipitor] 80 mg PO HS #30 tab 09/02/17 [Rx] Ciprofloxacin HCl [Cipro] 500 mg PO BID 3 Days #6 tab 09/02/17 [Rx] Clopidogrel [Plavix] 75 mg PO DAILY #90 tab 09/02/17 [Rx] Isosorbide Mononitrate ER [Imdur] 60 mg PO DAILY #30 tab.er.24h 09/02/17 [Rx] Lisinopril [Zestril] 5 mg PO DAILY #30 tab 09/02/17 [Rx] Metoprolol Tartrate [Lopressor] 25 mg PO BID #60 tab 09/02/17 [Rx] Nitroglycerin Sl Tabs [Nitrostat] 0.4 mg SUBLINGUAL Q5M PRN #25 tab 09/02/17 [Rx ] Spironolactone [Aldactone] 25 mg PO DAILY #30 tab 09/02/17 [Rx] Follow up Appointment(s)/Referral(s): David Benavides MD [Primary Care Provider] - 09/09/17 10:10 am (Thursday) Farhana Moore MD [STAFF PHYSICIAN] - 10 Days () Gilberto Novak MD [STAFF PHYSICIAN] - 1 Week ( Spoke to office manager receptionist. Office will call with appointment time) Ambulatory/Diagnostic Orders: Complete Blood Count w/diff [LAB.AMB] Time Frame: 3 Days, Location: Determined By Patient Patient Instructions/Handouts: *Surgery [facility] - After Heart Catheterization - Car Shakeout Operator Instructions, Left Heart Catheterization (DC), Implantable Cardioverter Defibrillator (DC) Activity/Diet/Wound Care/Special Instructions: Hussein currently on hold, re-eval OP. with PCP
--- NOTE | 2017-09-03 10:05 | P.PCN ---
Date of Procedure: 09/01/17 Preoperative Diagnosis: Ischemic cardiomyopathy, primary ventricular fibrillation and cardiac arrest Postoperative Diagnosis: The same Procedure(s) Performed: Single coil single-chamber AICD implantation, axillary venography Description of Procedure: HISTORY: This is a 57-year-old gentleman with history of known ischemic heart disease with a previous inferior wall [place] and cardiomyopathy with an ejection fraction about 35%. Patient was admitted at this time with a have cardiac arrest at home and documented ventricular fibrillation. Subsequently patient was taken to clinical laboratory technician and was noted to have total occlusion of the RCA to diffuse disease. This was most probably chronic and had a stent placement in the RCA. However, there was no evidence of an acute myocardial infarction. It was felt that cardiac arrest is secondary to primary ventricular fibrillation. Patient is advised to have AICD implantation for secondary prevention. CONSENT:I have discussed the risks, benefits and alternative therapies for the above-mentioned procedure and for both sedation/analgesia as well as necessary blood product administration, if indicated, as they pertain to this patient. The patient has indicated understanding and acceptance of the risks and procedures discussed. PROCEDURE: Patient was brought to the lab in a fasting state. Patient was prepped and draped in the usual fashion. Patient was given IV sedation with fentanyl and Versed. The skin below the left clavicle was infiltrated with lidocaine. An incision was made parallel to deltopectoral groove was deepened until the pectoral fascia was exposed. A pocket was created by blunt dissection and cautery. Axillary venography was performed to delineate the course of the axillary vein. 1 stickwere performed into extrathoracic portion of the axillary vein and 1 sheath was advanced over the guidewires into the left in subclavian vein. Conscious Sedation: This was administered by department of anesthesia. LEADS: VENTRICULAR: This was manufactured by [employer]. Model number is [id number]. Serial number is [id number] The ventricular lead is maneuvered l with help of a straight and curved stylets into the left ventricle apical region. Satisfactory position was obtained and threshold measurements were made. The atrial lead was then maneuvered into the right atrial appendage. And thresholds were obtained. THRESHOLDS: VENTRICLE: The minimal patient threshold was 0.8 V at pulse width of 0.5 ms. Impedance was 7 at 986 ohms. Shock impedance was 68 ohms. R-wave: 15.6. DFT TESTING: Patient was given IV sedation by department of anesthesia. Ventricle fibrillation was induced with T shock. This was appropriately detected and at 11 J shock converted him back to sinus. Patient tolerated the procedure well The leads and pulse generator remained in the pocket after it was washed with antibiotics. Pocket was closed in the usual fashion. The fascia was closed with 2-0 Prolene ,the subcutaneous tissue was closed with 3-0 Prolene and the skin was closed with 4-0 Prolene. PROGRAMMING: LIAN PROGRAMMING: MODE: VVI RATE: 40 OUTPUT: Ventricle: 3.5 V at a pulse width of 0.5 ms. Tachycardia Programming : VF zone: Programmed to a rate of 205 bpm. The therapies are programmed to 21 J 1 followed by 3111 followed by 41 J 6. VT programming: Programmed to a rate of 1 75 bpm. Therapies are programmed to 11 J 1, 21 J 1, 41 J 4 FINAL IMPRESSION:. #1. Axillary venography #2. DFT testing. 3. Successful implantation of single-chamber single coil AICD. COMPLICATIONS: None PLAN: Patient will be monitored for the next 24 hours. Prophylactic antibiotics to be continued. If stable patient be discharged home in 24 hours.
--- NOTE | 2017-09-04 10:58 | CDI ---
Last Revision, July 2017 Documentation Clarification Form Date: 09/04/2017 10:39:00 AM From: Eliane Diaz Conical Mixer Phone: If you have a question about this query, please contact Claudine Hinson Hand Potter, at [phone] between 8am and 5pm. Patient Name: Ralph Pierre Visit Number: [id number] Admit Date: 08/25/2017 Discharge Date: 09/02/17 ATTENTION: The Clinical Documentation Specialists (CDI) and [facility] Coding Staff appreciate your assistance in clarifying documentation. Please respond to the clarification below the line at the bottom and electronically sign. The CDI & [facility] Coding staff will review the response and follow-up if needed. Please note: Queries are made part of the Legal Health Record. If you have any questions, please contact the author of this message. Dr. Leanne Henning/Concepcion Mess: Risk Factors: Hx of CHF, ischemic cardiomyopathy, STEMI, cardiac arrest, vent fib/tachycardia Echocardiogram Results: EF between 25-30% Chest X Ray: 08/27-correlate for congestive heart failure 08/26 Prog Note-Dr. Mcrae- congestive heart failure w segment wall motion abnormalities & EF 25% 08/27 Prog Note-Dr. Henning - impaired LV systolic function in the past. EF remains poor at 30-35% 08/27 Prog Note-Dr. Mcrae- congestive heart failure - EF 25%-Give Lasix 40 mg IVP. Treatment: IVLasix 20mg X1 & 40mg X1; discharged on Aldactone 25 mg In your professional opinion, can you please clarify the acuity and type of CHF if known? Acute systolic heart failure or Acute on chronic systolic heart failure or Unable to Determine Other, please specify below the line. Thank you for your assistance. MTDD
--- NOTE | 2017-09-30 15:49 | P.PN ---
Progress Note - Text Progress Note Date: 09/30/17 This is an addendum to the cardiology consultation as well as the cardiology progress notes in clarification of the patient's congestive heart failure. Patient has systolic congestive heart failure acute on chronic.
== END 2017-09-02 19:15 | disposition home health service (06) | DRG 222 ==
LOC: EC 01:11 → 6ICU 01:52 → 6SEL 08-27 21:57
PROVIDERS: ADMIT Hospitalist; ATTEND Hospitalist
PROC: B2151ZZ Fluoroscopy of Left Heart using Low Osmolar Contrast (ICD-10-PCS; 2017-08-25)
PROC: B2111ZZ Fluoroscopy of Multiple Coronary Arteries using Low Osmolar Contrast (ICD-10-PCS; 2017-08-25)
PROC: 027035Z Dilation of Coronary Artery, One Artery with Two Drug-eluting Intraluminal Devices, Percutaneous Approach (ICD-10-PCS; 2017-08-25)
PROC: 0BH17EZ Insertion of Endotracheal Airway into Trachea, Via Natural or Artificial Opening (ICD-10-PCS; 2017-08-25)
PROC: 0D9670Z Drainage of Stomach with Drainage Device, Via Natural or Artificial Opening (ICD-10-PCS; 2017-08-25)
PROC: 5A1945Z Respiratory Ventilation, 24-96 Consecutive Hours (ICD-10-PCS; principal; 2017-08-25 01:49)
PROC: 02HK3KZ Insertion of Defibrillator Lead into Right Ventricle, Percutaneous Approach (ICD-10-PCS; 2017-09-01)
PROC: 0JH608Z Insertion of Defibrillator Generator into Chest Subcutaneous Tissue and Fascia, Open Approach (ICD-10-PCS; 2017-09-01 09:48)
DX: I21.19 ST elevation (STEMI) myocardial infarction involving other coronary artery of inferior wall (principal); I49.01 Ventricular fibrillation; I46.9 Cardiac arrest, cause unspecified; J69.0 Pneumonitis due to inhalation of food and vomit; J96.01 Acute respiratory failure with hypoxia; R40.2112 Coma scale, eyes open, never, at arrival to emergency department; R40.2222 Coma scale, best verbal response, incomprehensible words, at arrival to emergency department; G93.1 Anoxic brain damage, not elsewhere classified; R40.2342 Coma scale, best motor response, flexion withdrawal, at arrival to emergency department; I50.23 Acute on chronic systolic (congestive) heart failure; E87.4 Mixed disorder of acid-base balance; I47.2 Ventricular tachycardia; I69.354 Hemiplegia and hemiparesis following cerebral infarction affecting left non-dominant side; R47.01 Aphasia; I25.5 Ischemic cardiomyopathy; I25.82 Chronic total occlusion of coronary artery; I11.0 Hypertensive heart disease with heart failure; D69.6 Thrombocytopenia, unspecified; J44.9 Chronic obstructive pulmonary disease, unspecified; I65.29 Occlusion and stenosis of unspecified carotid artery; E83.51 Hypocalcemia; M54.5 Low back pain; G89.29 Other chronic pain; J32.4 Chronic pansinusitis; I73.9 Peripheral vascular disease, unspecified; E78.5 Hyperlipidemia, unspecified; F17.210 Nicotine dependence, cigarettes, uncomplicated; I25.10 Atherosclerotic heart disease of native coronary artery without angina pectoris; G47.33 Obstructive sleep apnea (adult) (pediatric); G25.81 Restless legs syndrome; M47.812 Spondylosis without myelopathy or radiculopathy, cervical region; R04.0 Epistaxis; M19.91 Primary osteoarthritis, unspecified site; I25.2 Old myocardial infarction; K21.9 Gastro-esophageal reflux disease without esophagitis; Z79.02 Long term (current) use of antithrombotics/antiplatelets; Z79.899 Other long term (current) drug therapy; Z95.828 Presence of other vascular implants and grafts; Z96.652 Presence of left artificial knee joint; Z96.641 Presence of right artificial hip joint; Z91.041 Radiographic dye allergy status; Z82.49 Family history of ischemic heart disease and other diseases of the circulatory system
CPT/HCPCS: 31500; 33249; 36415; 36600; 43753; 70450; 71045; 71046; 72125; 80048; 80053; 80061; 80076; 81001; 82553; 82805; 83036; 83735; 84100; 84484; 85025; 85610; 85730; 87040; 87070; 87077; 87086; 87186; 87205; 93005; 93306; 93458; 93641; 94002; 94003; 94640; 94760; 95819; 96374; 96375; 99291

== ENCOUNTER → 2017-11-24 | Outpatient (CLI) | payer MEDICARE, OTHER ==
[2017-11-24 09:51] LABS: ALT 91 U/L (21-72); AST 49 U/L (17-59); Albumin 4.2 g/dL (3.5-5.0); Alkaline Phosphatase 79 U/L (38-126); Anion Gap 12 mmol/L; Blood Urea Nitrogen 17 mg/dL (9-20); Calcium 8.8 mg/dL (8.4-10.2); Carbon Dioxide 26 mmol/L (22-30); Chloride 105 mmol/L (98-107); Cholesterol 93 mg/dL (<200); Glucose 92 mg/dL (74-99); HDL Cholesterol 36 mg/dL (40-60); LDL Cholesterol,Calculated 48 mg/dL (0-99); Potassium 4.5 mmol/L (3.5-5.1); Sodium 143 mmol/L (137-145); Total Bilirubin 0.6 mg/dL (0.2-1.3); Total Protein 6.3 g/dL (6.3-8.2); Triglycerides 46 mg/dL (<150)
== END | disposition home or self-care (01) ==
LOC: LABWHC1 08:41
PROVIDERS: ATTEND Internal Medicine Cardiovascular Disease
DX: R53.1 Weakness (principal); E78.5 Hyperlipidemia, unspecified; Z79.899 Other long term (current) drug therapy
CPT/HCPCS: 36415; 80053; 80061

== ENCOUNTER → 2018-11-04 | Outpatient (CLI) | payer MEDICARE, OTHER ==
[2018-11-04 18:46] LABS: Albumin 4.5 g/dL (3.80-4.90); Albumin/Globulin Ratio 2.5 (1.60-3.17); Calcium 9.3 mg/dL (8.7-10.3); Globulin 1.8 g/dL (1.6-3.3); LDL Cholesterol,Calculated 72.8 mg/dL (0.0-131.0); Potassium 4.3 mmol/L (3.5-5.5); Total Bilirubin 0.5 mg/dL (0.2-1.2); Total Protein 6.3 g/dL (6.2-8.2); VLDL Calculation 16.2 mg/dL (5.00-40.00)
[2018-11-04 18:53] LABS: T4, Free (Free Thyroxine) 1.2 ng/dL (0.80-1.80)
[2018-11-05 18:21] LABS: Hepatitis A Antibody IgM Non-Reactive (Non-Reactive); Hepatitis B Core IgM Non-Reactive (Non-Reactive)
== END | disposition home or self-care (01) ==
LOC: LABWHC1 11:15
PROVIDERS: ATTEND Internal Medicine Cardiovascular Disease
DX: E78.5 Hyperlipidemia, unspecified (principal); I25.10 Atherosclerotic heart disease of native coronary artery without angina pectoris; Z79.899 Other long term (current) drug therapy
CPT/HCPCS: 36415; 80053; 80061; 80074; 84439; 84443

== ENCOUNTER → 2019-07-15 | Outpatient (CLI) | payer MEDICARE, OTHER ==
[2019-07-15 12:59] LABS: ALT 37 U/L (4-49); AST 28 U/L (17-59); African American GFR (CKD) >90 (>60 ml/min/1.73 sqM); Albumin 4.7 g/dL (3.5-5.0); Alkaline Phosphatase 90 U/L (38-126); Anion Gap 10 mmol/L; Blood Urea Nitrogen 12 mg/dL (9-20); Calcium 9.5 mg/dL (8.4-10.2); Carbon Dioxide 23 mmol/L (22-30); Chloride 106 mmol/L (98-107); Cholesterol 198 mg/dL (<200); Glucose 94 mg/dL (74-99); HDL Cholesterol 34 mg/dL (40-60); LDL Cholesterol,Calculated 134 mg/dL (0-99); Non-African American GFR(CKD) >90 (>60 ml/min/1.73 sqM); Sodium 139 mmol/L (137-145); Total Bilirubin 1.2 mg/dL (0.2-1.3); Total Protein 7.4 g/dL (6.3-8.2); Triglycerides 149 mg/dL (<150)
[2019-07-15 13:19] LABS: HCT 47.3 % (39.0-53.0); HGB 16.3 gm/dL (13.0-17.5); MCH 31.7 pg (25.0-35.0); MCHC 34.5 g/dL (31.0-37.0); MCV 91.8 fL (80.0-100.0); Mean Platelet Volume 8.1; Platelet Count 120 k/uL (150-450); RBC 5.15 m/uL (4.30-5.90); RDW 13.2 % (11.5-15.5); WBC 6.7 k/uL (3.8-10.6)
== END | disposition home or self-care (01) ==
LOC: LABPAT 11:54
PROVIDERS: ATTEND Internal Medicine Cardiovascular Disease
DX: Z01.812 Encounter for preprocedural laboratory examination (principal); I70.213 Atherosclerosis of native arteries of extremities with intermittent claudication, bilateral legs; I25.10 Atherosclerotic heart disease of native coronary artery without angina pectoris; I73.9 Peripheral vascular disease, unspecified; E78.5 Hyperlipidemia, unspecified; Z79.899 Other long term (current) drug therapy
CPT/HCPCS: 36415; 80053; 80061; 84439; 84443; 85027

== ENCOUNTER → 2021-04-22 | Outpatient (CLI) | payer MEDICARE, OTHER ==
[2021-04-22 15:16] LABS: Basophils # (A) 0.06 X 10*3/uL (0.00-0.10); Basophils % (A) 0.7 %; Eosinophils # (A) 0.18 X 10*3/uL (0.04-0.35); Eosinophils % (A) 2.2 %; HCT 48.9 % (39.6-50.0); HGB 16.4 g/dL (13.0-17.0); Lymphocytes # (A) 1.64 X 10*3/uL (0.90-5.00); Lymphocytes % (A) 19.7 %; MCH 32.3 pg (27.0-32.0); MCHC 33.5 g/dL (32.0-37.0); MCV 96.4 fL (80.0-97.0); Mean Platelet Volume 11.3 fL (9.5-12.2); Monocytes # (A) 0.56 X 10*3/uL (0.20-1.00); Monocytes % (A) 6.7 %; Neutrophils # (A) 5.85 X 10*3/uL (1.80-7.70); Neutrophils % (A) 70.3 %; Platelet Count 125 X 10*3/uL (140-440); RBC 5.07 X 10*6/uL (4.40-5.60); RDW 12.9 % (11.5-14.5); WBC 8.32 X 10*3/uL (4.50-10.00)
[2021-04-22 15:44] LABS: African American GFR (CKD) 93.7 (60.0-200.0); Albumin 4.6 g/dL (3.80-4.90); Albumin/Globulin Ratio 2.42 (1.60-3.17); Anion Gap 6.1 mmol/L (4.00-12.00); Calcium 9.3 mg/dL (8.7-10.3); Carbon Dioxide 26.9 mmol/L (21.6-31.8); Globulin 1.9 g/dL (1.6-3.3); Non-African American GFR(CKD) 80.9 (60.0-200.0); Potassium 4.6 mmol/L (3.5-5.5); Total Bilirubin 0.5 mg/dL (0.3-1.2); Total Protein 6.5 g/dL (6.2-8.2)
[2021-04-22 15:53] LABS: T4, Free (Free Thyroxine) 1.1 ng/dL (0.80-1.80)
== END | disposition home or self-care (01) ==
LOC: LABWHC1 08:40
PROVIDERS: ATTEND Internal Medicine Cardiovascular Disease
DX: I42.9 Cardiomyopathy, unspecified (principal)
CPT/HCPCS: 36415; 80053; 84439; 84443; 85025

== ENCOUNTER → 2022-05-06 | Outpatient (CLI) | payer MEDICARE, OTHER ==
[2022-05-06 16:13] LABS: HCT 49.4 % (39.6-50.0); HGB 16.6 g/dL (13.0-17.0); MCH 31.6 pg (27.0-32.0); MCHC 33.6 g/dL (32.0-37.0); MCV 94.1 fL (80.0-97.0); Mean Platelet Volume 11.2 fL (9.5-12.2); NRBC Per 100 WBC 0 /100 WBCS (0.0-0.0); Platelet Count 141 X 10*3/uL (140-440); RBC 5.25 X 10*6/uL (4.40-5.60); RDW 13.6 % (11.5-14.5); WBC 7.36 X 10*3/uL (4.50-10.00)
[2022-05-06 17:02] LABS: African American GFR (CKD) 106.1 (60.0-200.0); Anion Gap 11.7 mmol/L (10.00-18.00); Carbon Dioxide 26.5 mmol/L (20.0-27.5); Non-African American GFR(CKD) 91.5 (60.0-200.0); Potassium 4.1 mmol/L (3.5-5.5)
== END | disposition home or self-care (01) ==
LOC: LABPAT 09:05
PROVIDERS: ATTEND Internal Medicine
DX: Z01.812 Encounter for preprocedural laboratory examination (principal); I70.213 Atherosclerosis of native arteries of extremities with intermittent claudication, bilateral legs
CPT/HCPCS: 80051; 82565; 84520; 85027

== ENCOUNTER → 2022-07-18 | Outpatient (CLI) | payer MEDICARE, OTHER ==
[2022-07-18 14:11] LABS: LDL Cholesterol,Calculated 131.2 mg/dL (0.0-131.0); VLDL Calculation 15.16 mg/dL (5.00-40.00)
== END | disposition home or self-care (01) ==
LOC: LABWHC1 08:54
PROVIDERS: ATTEND Internal Medicine
DX: E78.5 Hyperlipidemia, unspecified (principal); I25.10 Atherosclerotic heart disease of native coronary artery without angina pectoris; I73.9 Peripheral vascular disease, unspecified
CPT/HCPCS: 36415; 80061

== ENCOUNTER 2024-10-03 11:36 | Day surgery (SDC) | payer MEDICARE, OTHER ==
[2024-09-29 10:38] VITALS: BMI 29.7
[~2024-10-03 11:36] MED LIST: ALPRAZolam 0.25 MG TAB PO PRN; ALPRAZolam 0.5 MG TAB PO PRN; HEPARIN SODIUM,PORCINE (1 ML) 2,500 UNIT in SODIUM CHLORIDE 0.9% 250 ML IRRIGATION PRN; HEPARIN SODIUM,PORCINE 10,000 UNIT in SODIUM CHLORIDE 0.9% 1,000 ML IRRIGATION PRN; NITROGLYCERIN SL TABS 0.4 MG TAB SUBLINGUAL PRN
[2024-10-03] MEDS: IV FLUID CONTINUATION 1,000 ML IV ONE (12:10)
[2024-10-03] MEDS: ASPIRIN 325 MG TAB PO ONE (12:15)
[2024-10-03] MEDS: SODIUM CHLORIDE 0.9% 1,000 ML in EMPTY BAG 1 BAG IV SCH (12:15)
[2024-10-03 12:34] LABS: Basophils % (A) 0 %; Eosinophils % (A) 0 %; HCT 48.5 % (39.0-53.0); HGB 15.7 gm/dL (13.0-17.5); Lymphocytes # (A) 0.9 k/uL (1.0-4.8); Lymphocytes % (A) 9 %; MCH 30.8 pg (25.0-35.0); MCHC 32.5 g/dL (31.0-37.0); MCV 94.9 fL (80.0-100.0); Mean Platelet Volume 7.4; Monocytes # (A) 0.3 k/uL (0-1.0); Monocytes % (A) 3 %; Neutrophils # (A) 9.2 k/uL (1.3-7.7); Neutrophils % (A) 88 %; Platelet Count 160 k/uL (150-450); RBC 5.11 m/uL (4.30-5.90); RDW 13.6 % (11.5-15.5); WBC 10.5 k/uL (3.8-10.6)
[2024-10-03 12:47] LABS: African American GFR (CKD) >90 (>60 ml/min/1.73 sqM); Anion Gap 10 mmol/L; Blood Urea Nitrogen 12 mg/dL (9-20); Calcium 9.2 mg/dL (8.4-10.2); Carbon Dioxide 22 mmol/L (22-30); Chloride 104 mmol/L (98-107); Glucose 117 mg/dL (74-99); Non-African American GFR(CKD) >90 (>60 ml/min/1.73 sqM); Potassium 4.1 mmol/L (3.5-5.1); Sodium 136 mmol/L (137-145)
[2024-10-03] MEDS: fentaNYL (PF) 50 MCG/ML 2 ML AMP IVP ONE (14:54)
[2024-10-03] MEDS: MIDAZOLAM 2 MG/2 ML VIAL IVP ONE (14:54)
[2024-10-03] MEDS: LIDOCAINE 1% INJ 10MG/ML (20 ML MDV) SQ ONE (14:58)
[2024-10-03] MEDS: VERAPAMIL SYRINGE (5 MG/10 ML) INTRAARTER ONE (14:59)
[2024-10-03] MEDS: HEPARIN SODIUM 1,000 UN/ML (10ML VL) IV ONE (15:00)
[2024-10-03] MEDS: IOPAMIDOL-370 100ML BTL INJ ONE (15:09)
--- NOTE | 2024-10-03 15:20 | P.CARDCATH ---
Description of Procedure: PROCEDURES PERFORMED: Left heart catheterization, bilateral coronary angiography, ultrasound guided arterial access INDICATION: Ventricular fibrillation CONSENT:I have discussed the risks, benefits and alternative therapies for the above-mentioned procedure and for both sedation/analgesia as well as necessary blood product administration, if indicated, as they pertain to this patient. The patient has indicated understanding and acceptance of the risks and procedures discussed. PROCEDURE: After the risks, benefits and alternatives of the above mentioned procedure explained in detail with the patient, informed consent was obtained. Patient was taken to the catheterization lab and prepped and draped in usual fashion. Ultrasound guidance was used to assess for arterial access. 1% lidocaine was used to anesthetize the right radial artery. A 6-Jamaican sheath was placed in the right radial artery using modified Seldinger technique and ultrasound guidance. Left coronary angiography was performed with a 5-Jamaican JL 3.5 catheter and right coronary angiography was performed with a 5-Jamaican FR5 catheter in various views. A 5-Jamaican FR5 catheter was inserted into the left ventricle and pressure measurements were obtained. The right radial sheath was removed and a TR band was placed with hemostasis achieved. The patient tolerated the procedure well. Patient was transported back to the post catheterization holding area in stable condition. Conscious Sedation: Patient was monitored under the direct supervision of myself for conscious sedation using Versed and fentanyl for a total duration of 14 minutes HEMODYNAMICS: Ao: 138/71 LV: 133/7, LVEDP 10 SELECTIVE CORONARY ARTERIOGRAPHY: LEFT MAIN: The left main is a large caliber vessel which is long and leads to the LAD with no left circumflex. There is no significant stenosis. LEFT ANTERIOR DESCENDING CORONARY ARTERY: LAD is a large caliber vessel which w raps around to the apex. There is 20 to 30% proximal and mid LAD stenosis. Diagonal 1 is moderate caliber with mild 20% stenosis. ANOMOLOUS CIRCUMFLEX CORONARY ARTERY: The circumflex appears small to moderate caliber and arises from the right coronary cusp. There is 100% proximal stenosis. RIGHT CORONARY ARTERY: The right coronary artery is a large caliber vessel which gives off a PDA and PLV branch and is the dominant vessel. There is a patent proximal to mid RCA stent with 30 to 40% in-stent stenosis. Otherwise there are mild luminal irregularities. FINAL IMPRESSION: 1. 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 Low normal left sided filling pressures PLAN: 1. Aggressive risk factor modification per most recent ACC/AHA guidelines. 2. 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 Continue with medical therapy.
[2024-10-03] MEDS: SODIUM CHLORIDE 0.9% 1,000 ML IV SCH (15:23)
[2024-10-03] MEDS ORDERED: RX INFO: IV CONTRAST WAS GIVEN 1 EACH MISC MISCELLANE PRN (15:27)
[2024-10-03] MEDS ORDERED: MECLIZINE 25 MG TAB PO PRN (15:34)
[2024-10-03] MEDS ORDERED: NITROGLYCERIN SL TABS 0.4 MG TAB SUBLINGUAL PRN (15:34)
[2024-10-03] MEDS ORDERED: ALBUTEROL NEBULIZED 2.5 MG/3 ML INHALATION PRN (15:34)
[2024-10-03 20:30] VITALS: BP 116/66; PULSE 51; RESP 15; TEMP 97.6
[2024-10-03] MEDS ORDERED: ATORVASTATIN 80 MG TAB PO SCH (21:00)
[2024-10-04] MEDS ORDERED: METOPROLOL SUCCINATE (ER) 25 MG TAB.ER.24H PO SCH (09:00)
[2024-10-04] MEDS ORDERED: ISOSORBIDE MONONITRATE ER 60 MG TAB.ER.24H PO SCH (09:00)
[2024-10-04] MEDS ORDERED: ASPIRIN 81 MG PO SCH (09:00)
[2024-10-04] MEDS ORDERED: SPIRONOLACTONE 25 MG TAB PO SCH (09:00)
[2024-10-04] MEDS ORDERED: lisinopriL 5 MG TAB PO SCH (09:00)
[2024-10-04] MEDS ORDERED: DAPAGLIFLOZIN PROPANEDIOL 5 MG TABLET PO SCH (09:00)
== END 2024-10-03 20:41 | disposition home or self-care (01) ==
LOC: CATHCVL 11:36 → 6NMEDSUR 15:24 → CATHCVL 20:41
PROVIDERS: ATTEND Internal Medicine
DX: T82.855A Stenosis of coronary artery stent, initial encounter (principal); I25.10 Atherosclerotic heart disease of native coronary artery without angina pectoris; I49.01 Ventricular fibrillation; I11.0 Hypertensive heart disease with heart failure; I50.22 Chronic systolic (congestive) heart failure; I25.5 Ischemic cardiomyopathy; E11.9 Type 2 diabetes mellitus without complications; E78.2 Mixed hyperlipidemia; I70.202 Unspecified atherosclerosis of native arteries of extremities, left leg; Z95.820 Peripheral vascular angioplasty status with implants and grafts; I65.23 Occlusion and stenosis of bilateral carotid arteries; J44.9 Chronic obstructive pulmonary disease, unspecified; R00.1 Bradycardia, unspecified; Z79.82 Long term (current) use of aspirin; Z79.84 Long term (current) use of oral hypoglycemic drugs; Z79.899 Other long term (current) drug therapy; Z86.74 Personal history of sudden cardiac arrest; Z95.810 Presence of automatic (implantable) cardiac defibrillator; Z88.8 Allergy status to other drugs, medicaments and biological substances
CPT/HCPCS: 80048; 85025; J2250; J2003; J3010; J1644; Q9967